=== PATIENT | female | born 1970 | race Caucasian/White ===

== ENCOUNTER 2020-01-02 07:14 | Outpatient (CLI) | payer OTHER, SELFPAY ==
[2020-01-02 07:52] LABS: Basophils Absolute Auto 0.1 K/mm3 (0.0-0.1); Basophils Percent Auto 1.3 % (0.2-1.2); Eosinophils Absolute Auto 0.2 K/mm3 (0-0.3); Eosinophils Percent Auto 2.5 % (0-4.4); Hematocrit 40.4 % (37.0-47.0); Hemoglobin 13.4 g/dL (12.0-15.0); Immature Granulocyte Absolute 0.03 K/mm3 (0.00-0.031); Immature Granulocyte Percent A 0.3 % (0-0.5); Lymphocytes Absolute Auto 2.54 K/mm3 (0.9-3.2); Lymphocytes Percent Auto 28.4 % (18.3-44.2); Mean Corpuscular HGB Conc 33.2 g/dl (32-36); Mean Corpuscular Hemoglobin 30.5 pg (26-34); Monocytes Absolute Auto 0.6 K/mm3 (0.1-0.6); Monocytes Percent Auto 6.8 % (2.6-8.5); Neutrophils Absolute Auto 5.4 K/mm3 (1.3-6.7); Neutrophils Percent Auto 60.7 % (45.5-73.1); Platelet Count Result 285 k/mm3 (150-375); Red Blood Count 4.39 M/mm3 (4.2-5.4); Red Cell Distribution Width 12.6 % (11.5-14.5); White Blood Count 8.9 K/mm3 (4.5-10.0)
[2020-01-02 08:06] LABS: Alanine Aminotransferase 20 U/L (4-35); Alkaline Phosphatase 86 U/L (38-126); Anion Gap 4 mmol/L (8-16); Aspartate Amino Transferase 21 U/L (14-36); Bilirubin,Total 0.4 mg/dL (0.2-1.3); Blood Urea Nitrogen 21 mg/dL (7-17); Carbon Dioxide 26 mmol/L (22-30); Chloride 108 mmol/L (98-107); Cholesterol 188 mg/dL (0-200); Estimated Glomerular Filt Rate 58; Glucose 109 mg/dL (65-105); HDL Direct 55 mg/dL; Potassium 4.2 mmol/L (3.4-5.0); Sodium 138 mmol/L (137-145); Triglycerides 67 mg/dL (<150)
[2020-01-02 08:15] LABS: Add Urine Microscopic? YES; Appearance Urine Cloudy (Clear); Bacteria Urine Trace /hpf; Bilirubin Urine Negative (Negative); Blood Urine Negative (Negative); Color Urine Yellow (Yellow); Glucose Urine UA Negative (Negative); Ketones Urine Negative (Negative); Leukocyte Esterase Ur Negative LEU/UL (NEGATIVE); Mucus Urine Few /lpf; Nitrate Urine Negative (Negative); Protein Urine Negative (Negative); RBC Urine 0-2 /hpf (0-2); Squamous Epithelial Cell Urine Many /hpf (Few); Urobilinogen Urine Negative mg/dL (<2.0); WBC Urine 0-3 /hpf (0-3)
[2020-01-02 08:16] LABS: LDL Cholesterol Direct 105 mg/dL
[2020-01-02 08:20] LABS: Hemoglobin A1C 5.3 % (<5.7)
[2020-01-02 08:43] LABS: Iron 75 ug/dL (37-170)
[2020-01-02 09:30] LABS: Folic Acid 11.9 ng/mL (2.76->20); Vitamin B12 > 1000.0 pg/mL (239-931)
[2020-01-06 15:38] LABS: Vitamin D 1,25 (OH)2 Total 34 pg/mL (18-72); Vitamin D2 1,25 (OH)2 <8 pg/mL; Vitamin D3 1,25 (OH)2 34 pg/mL
== END 2020-01-02 07:15 | disposition home or self-care (01) ==
PROVIDERS: PCP Family Medicine; Visit Provider Family Medicine
DX: E55.9 Vitamin D deficiency, unspecified (principal); E78.2 Mixed hyperlipidemia; F32.9 Major depressive disorder, single episode, unspecified; R73.01 Impaired fasting glucose
CPT/HCPCS: 36415; 80053; 80061; 81001; 82607; 82652; 82746; 83036; 83540; 84443; 85025

== ENCOUNTER 2020-01-07 17:17 | Outpatient (CLI) | payer OTHER, SELFPAY ==
--- NOTE | ~2020-01-07 | CT_ITS ---
EXAMINATION: CT lung screening DATE: 01/07/2020 17:37 INDICATION: Personal history of nicotine dependence, prior smoker with 30 pack year history TECHNIQUE: Computed tomography (CT) of the chest was performed without intravenous contrast. The dose -length product (DLP) was 248.20 mGy-cm. 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 COMPARISON: None FINDINGS: There is mild emphysema. A 3 mm nodule is present in the right upper lobe on image 31. Ther e is a 3 mm nodule of the left upper lobe on image 34. There is mild atelectasis or scarring of the l ingula and lower lobes. No pleural effusion or pneumothorax is identified. Calcified left hilar and m ediastinal lymph nodes are consistent with old granulomatous disease. No pathologically enlarged thor acic lymph nodes are identified. The heart size is normal. The gallbladder is surgically absent. Ther e is mild thoracic spondylosis. IMPRESSION: 1. Lung-RADS category 2: Benign appearance or behavior. Recommend annual screening with noncontrast l ow-dose chest CT beginning at age 55. Consider follow-up CT in 12 months. Reviewed, dictated and finalized at location A. IMPRESSION: 1. Lung-RADS category 2: Benign appearance or behavior. Recommend annual screen ing with noncontrast low-dose chest CT beginning at age 55. Consider follow-up CT in 12 months.
== END 2020-01-07 17:18 | disposition home or self-care (01) ==
PROVIDERS: PCP Family Medicine; Visit Provider Family Medicine
DX: Z12.2 Encounter for screening for malignant neoplasm of respiratory organs (principal); Z87.891 Personal history of nicotine dependence
CPT/HCPCS: G0297

== ENCOUNTER 2020-02-12 08:28 | Outpatient (CLI) | payer OTHER, SELFPAY ==
--- NOTE | 2020-03-16 11:31 | WPDHOMESLEEP ---
Sleep Study - Home Unattended Date of Study: 02/12/20 Ordering Provider: Quinton Nova MD Interpreting Physician: Gabrielle Zheng MD Home Sleep Study Type: Apnea Link Air Height: 1.63 m Weight: 103.419 kg Body Mass Index: 39.1 Rupert: 5 Reason for Sleep Study Loud snoring, suspected sleep apnea Sleep History Alie Mohan is a 49 year old female with hypertension. She reports gaining 50 lbs in the last year. She has loud snoring and her has witnessed her having apneic episodes while sleeping. She has gasped for air occasionally at night. She wakes up throughout the night and has excessive daytime sleepiness. Her snoring is frequently loud enough that others complain about it. She occasionally awakens at night with heartburn, belching or coughing. She does not awaken from sleep feeling short of breath. She occasionally has trouble sleep with a cold. She rarely gasp for breath at night and really has breathing problems at night observed by others. She constantly sweats excessively at night. She occasionally notices her heart pounding or beating irregularly at night. She occasionally falls asleep during the day but never involuntarily or while driving. 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 She frequently has daytime difficulties due to her excessive sleepiness. She does not have loss of muscle tone was strong emotion. She does not feel paralyzed on waking or falling asleep and does not have vivid dreamlike scenes upon awakening or falling asleep. She is not afraid to go to sleep. She does not have nightmares. She does not recall her dreams. She rarely has racing thoughts. She really feels sad or depressed. She occasionally has anxiety. She frequently has muscular tension. She rarely notices parts of her body jerking. She does not kick at night. She occasionally has crawling and aching feelings in her legs and leg pain at night. She does not have morning jaw pain and does not grind her teeth during sleep. She occasionally has bothered by pain during the day, occasionally is awakened by pain at night, occasionally wakes up feeling stiff in the morning. She rarely has sore achy muscles and occasionally wakes up with pain in the neck and spine. She has palpitations, headaches in bowel disturbances. Normal schedule is bedtime at 9:30 a.m. to 10:00 p.m. falling asleep instantly waking 2 or 3 times at night staying awake from 5-10 minutes. While awake she will roll over go back to sleep. She wakes in the morning at 6:00 a.m.. On weekends she goes to bed at the same time but may sleep until 7:00 a.m.. She may feel refreshed after a short nap. She is usually drowsy in the morning for 3 hours or longer. She rarely awakens feeling refreshed. Habits: Smoked 30 years, quit 4 years ago. She does consume caffeine. No alcohol or recreational drugs. [facility] Past Medical History Medical History Abnormal fasting glucose Acute bronchitis Anxiety Bilateral carpal tunnel syndrome Chronic depression Chronic low back pain without sciatica Chronic neck pain Chronic pain Colon cancer screening GERD (gastroesophageal reflux disease) Headache History of smoking 30 or more pack years Hypersomnia Irritable bowel syndrome with diarrhea Migraine without aura and without status migrainosus, not intractable Osteoarthritis involving multiple joints on both sides of body Seasonal allergic rhinitis Seasonal allergies Shortness of breath Surgical History Surgical History History of cholecystectomy History of hysterectomy History of tubal ligation Family History Family History Mother Family history of diabetes mellitus in first degree relative Diabetes mellitus Hypertension Family history of malignant neoplasm of breast in first degree relative Father Diabetes mellitus Hy
[2020-03-16 11:46] VITALS: BMI 39.1
== END 2020-02-12 08:29 | disposition home or self-care (01) ==
LOC: ANHCSM 08:29
PROVIDERS: PCP Family Medicine; Visit Provider Family Medicine
DX: G47.30 Sleep apnea, unspecified (principal); G47.10 Hypersomnia, unspecified
CPT/HCPCS: 95806

== ENCOUNTER 2020-02-27 10:39 | Outpatient (CLI) | payer OTHER, SELFPAY ==
--- NOTE | ~2020-02-27 | MM_ITS ---
EXAMINATION: MM screening becky BI w natalie HISTORY: Screening mammogram TECHNIQUE: Craniocaudal and mediolateral oblique 3-D tomosynthesis images were obtained and synthetic 2-D images were generated. CAD analysis was submitted and interpreted. COMPARISON: 01/02/2019, 12/03/2017, 01/28/2015 bilateral digital screening mammogram examinations BREAST PARENCHYMAL COMPOSITION: There are scattered areas of fibroglandular density. FINDINGS: There is no evidence of suspicious mass, calcification, or architectural distortion to sugg est malignancy in either breast. There has been no suspicious interval change. IMPRESSION: 1. No mammographic evidence of malignancy. 2. Recommend routine screening mammography in one year. BI-RADS Category 1: Negative Reviewed, dictated and finalized at location B. 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
== END 2020-02-27 10:40 | disposition home or self-care (01) ==
LOC: ANHIMG 10:42
PROVIDERS: PCP Family Medicine; Visit Provider Obstetrics & Gynecology
DX: Z12.31 Encounter for screening mammogram for malignant neoplasm of breast (principal)
CPT/HCPCS: 77063; 77067

== ENCOUNTER 2020-03-03 09:35 | Outpatient (CLI) | payer OTHER, SELFPAY ==
--- NOTE | 2020-03-03 10:30 | NEURO_ITS ---
Impression: # Complains of numbness of fingers. # No Carpal Tunnel Syndrome at this stage. # No ulnar neuropathy. # Normal needle/EMG exam. Nerve Conduction Studies Anti Sensory Summary Table Stim Site NR Peak (ms) P-T Amp (?V) Site1 Site2 Delta-P (ms) Dist (cm) Neymar (m/s) Left Median Anti Sensory (2-3nd Digit) Wrist 3.1 74.3 Wrist 2-3nd Digit 3.1 14.0 45 Wrist 3.1 80.5 Wrist 2-3nd Digit 3.1 14.0 45 Right Median Anti Sensory (2-3nd Digit) Wrist 3.1 62.4 Wrist 2-3nd Digit 3.1 14.0 45 Wrist 3.0 75.5 Wrist 2-3nd Digit 3.1 14.0 45 Left Radial Anti Sensory (Base 1st Digit) Wrist 1.9 26.0 Wrist Base 1st Digit 1.9 0.0 Right Radial Anti Sensory (Base 1st Digit) Wrist 2.2 25.8 Wrist Base 1st Digit 2.2 0.0 Left Ulnar Anti Sensory (5th Digit) Wrist 2.3 54.7 Wrist 5th Digit 2.3 14.0 61 Right Ulnar Anti Sensory (5th Digit) Wrist 2.3 28.3 Wrist 5th Digit 2.3 14.0 61 Motor Summary Table Stim Site NR Onset (ms) O-P Amp (mV) Site1 Site2 Delta-0 (ms) Dist (cm) Neymar (m/s) Left Median Motor (Abd Poll Brev) Wrist 3.2 5.9 Elbow Wrist 4.4 26.0 59 Elbow 7.6 5.0 Right Median Motor (Abd Poll Brev) Wrist 3.2 10.1 Elbow Wrist 4.8 26.0 54 Elbow 8.0 7.6 Left Ulnar Motor (Abd Dig Minimi) Wrist 2.3 7.3 A Elbow Wrist 4.7 27.0 57 A Elbow 7.0 5.9 Right Ulnar Motor (Abd Dig Minimi) Wrist 2.4 8.1 A Elbow Wrist 5.1 28.0 55 A Elbow 7.5 4.2 F Wave Studies NR F-Lat (ms) L-R F-Lat (ms) Left Median (Mrkrs) (Abd Poll Brev) 28.01 0.20 Right Median (Mrkrs) (Abd Poll Brev) 28.20 0.20 Left Ulnar (Mrkrs) (Abd Dig Min) 27.60 1.08 Right Ulnar (Mrkrs) (Abd Dig Min) 28.67 1.08 EMG Side Muscle Nerve Root Ins Act Fibs Amp Dur Recrt Comment Right 1stDorInt Ulnar C8-T1 Nml Nml Nml Nml Nml Right Ext Indicis Radial (Post Int) C7-8 Nml Nml Nml Nml Nml Right Ext Digitorum Radial (Post Int) C7-8 Nml Nml Nml Nml Nml Right BrachioRad Radial C5-6 Nml Nml Nml Nml Nml Right PronatorTeres Median C6-7 Nml Nml Nml Nml Nml Right Abd Poll Brev Median C8-T1 Nml Nml Nml Nml Nml Left 1stDorInt Ulnar C8-T1 Nml Nml Nml Nml Nml Left Ext Indicis Radial (Post Int) C7-8 Nml Nml Nml Nml Nml Left Ext Digitorum Radial (Post Int) C7-8 Nml Nml Nml Nml Nml Left BrachioRad Radial C5-6 Nml Nml Nml Nml Nml Left PronatorTeres Median C6-7 Nml Nml Nml Nml Nml Left Abd Poll Brev Median C8-T1 Nml Nml Nml Nml Nml Right ABD Dig Min Ulnar C8-T1 Nml Nml Nml Nml Nml Left ABD Dig Min Ulnar C8-T1 Nml Nml Nml Nml Nml MTDD
== END 2020-03-03 09:36 | disposition home or self-care (01) ==
PROVIDERS: PCP Family Medicine; Visit Provider Family Medicine
DX: G56.03 Carpal tunnel syndrome, bilateral upper limbs (principal)
CPT/HCPCS: 95886; 95911

== ENCOUNTER 2020-08-15 13:34 | Outpatient (CLI) | payer OTHER, SELFPAY ==
--- NOTE | 2020-08-15 16:45 | P.PCNPFT_ITS ---
PFT Procedure Performed PFT Procedure Performed Spirometry with Pre/Post Bronchodilator Plethysmography (Lung Vol) Diffusing Cap (DLCO) Flow Vol Loop PFT Interpretation This is a pulmonary function test with pre and post-bronchodilator spirometry, plethysmography and diffusing capacity. The test was performed and results interpreted in accordance with the 2019 and 2005 ATS/ERS Task Force guidelines respectively using the Global Lung Function Initiative-2012 reference equations. Patient demonstrated good effort and cooperation. Reproducibility criteria were met. The quality of the pre bronchodilator spirometry maneuver was Grade A and post bronchodilator spirometry maneuver was Grade A. Findings: Spirometry: There is decreased maximal expiratory airflow at all lung volumes with concave expiratory flow tracing. The contour of the inspiratory flow tracing is normal. The pre bronchodilator FVC is 2.54 L, 74% predicted. The pre bronchodilator FEV1 is 1.53, 56% predicted. The FEV1: FVC ratio 60%. The post bronchodilator FVC is 2.70 L, representing a 6% increase. The post bronchodilator FEV1 is 1.75 L, representing a 15% increase. Plethysmography: The total lung capacity is 5.32 L, 105% predicted. The functional residual capacity is 3.41 L, 120% predicted. The residual volume is 2.79 L, 152% predicted. Diffusion capacity: The absolute diffusion capacity is 15.2, 67% predicted. The diffusing capacity corrected for alveolar volume is 4.34, 95% predicted. Impression: There is a moderately severe obstructive abnormality with significant improvement after inhaling a single dose of albuterol. The increase in residual volume is consistent with air trapping from an obstructive abnorma lity. The absolute diffusing capacity is mildly decreased and normalizes when corrected for alveolar volume. There are no prior studies for comparison
== END 2020-08-15 13:35 | disposition home or self-care (01) ==
PROVIDERS: PCP Family Medicine; Visit Provider Family Medicine
DX: R06.02 Shortness of breath (principal); R94.2 Abnormal results of pulmonary function studies
CPT/HCPCS: 94060; 94726; 94729

== ENCOUNTER 2020-08-19 12:11 | Emergency (ER) | payer OTHER, SELFPAY ==
[2020-08-19] VITALS (7 sets, daily range): BP systolic 140–167; BP diastolic 80–105; PULSE 54–68; RESP 12–21; TEMP 36.2; O2SAT 97–100
--- NOTE | ~2020-08-19 | CT_ITS ---
EXAMINATION: CT brain wo con DATE: 08/19/2020 12:58 INDICATION: Headache TECHNIQUE: Computed tomography (CT) of the head was performed without intravenous contrast. Sagittal and coronal reconstructions were performed. The mA was adjusted according to patient size. Iterative reconstruction technique was employed. The dose-length product was 605.33 mGy-cm. COMPARISON: None FINDINGS: No acute intracranial hemorrhage, acute infarction or abnormal extra axial fluid collection. There is mild scattered white matter hypoattenuation consistent with chronic small vessel ischemic disease. V entricles are normal and symmetric. No mass/mass effect. The orbits, paranasal sinuses and mastoid ai r cells are normal. IMPRESSION: 1. No acute intracranial process. 2. Mild scattered white matter hypoattenuation consistent with chronic small vessel ischemic disease. Reviewed, dictated and finalized at location A. IMPRESSION: 1. No acute intracranial process. 2. Mild scattered white matter hypoattenuation consistent with chronic small ve ssel ischemic disease.
--- NOTE | ~2020-08-19 | XR_ITS ---
EXAMINATION: XR chest 1V DATE: 08/19/2020 13:05 INDICATION: Hypertension, headache and blurred vision. TECHNIQUE: frontal view of the chest was obtained. COMPARISON: Chest radiograph dated 03/10/2018 FINDINGS: Unchanged mild linear discoid atelectasis/scarring at the left costophrenic angle. No other airspace opacities, pulmonary edema, pleural effusion or pneumothorax. The cardiomediastinal silhouette is nor mal. Cholecystectomy clips in right upper quadrant. IMPRESSION: 1. Unchanged mild atelectasis/scarring at the lateral left lung base. No acute cardiopulmonary diseas e. Reviewed, dictated and finalized at location A. IMPRESSION: 1. Unchanged mild atelectasis/scarring at the lateral left lung base. No acute cardiopulmonary disease.
--- NOTE | 2020-08-19 12:26 | ECG_ITS ---
Measurements Intervals [place] Rate: 55 P: 53 ND: 165 QRS: 22 QRSD: 84 T: 37 QT: 426 QTc: 408 Interpretive Statements SINUS BRADYCARDIA DELAYED PRECORDIAL R/S TRANSITION BASELINE ARTIFACT- I, II, AVR BORDERLINE ECG Electronically Signed On 08-19-2020 13:23:18 CDT by Cassius Cosby D.O.
[2020-08-19] MEDS: LORazepam (*CRX) 1 MG TABLET PO (13:05)
--- NOTE | 2020-08-19 13:11 | ED.GENADULT ---
HPI - General Adult General Chief complaint: Unspecified Stated complaint: Blood Pressure Issues Time Seen by Provider: 08/19/20 12:24 Source: patient and RN notes reviewed Mode of arrival: ambulatory Limitations: no limitations History of Present Illness HPI narrative: Patient is 50 years old white female presented to the ED with episodes off feeling strange, blurry vision, headache, thick throat started months ago usually last between minutes up to 1 hour, anytime, patient denies aggravating or relieving factors. Patient scheduled to see her family physician at the end of this month. Today patient was sitting on the computer suddenly everything become blurry, felt strange, pain at the back of her neck and thick throat. Patient also reports been feeling hot flashes over the last few months. History of hysterectomy, still have ovaries. History of hypertension, depression and anxiety. Patient report some stress in her life lately. Patient denies any fever, chills, nausea, vomiting, chest pain, shortness of breath. Patient denies smoking, drinking, reports intermittent use of marijuana for chronic lower back pain patient had Covid vaccine months ago. Related Data Home Medications Medication Instructions Recorded Confirmed omeprazole 20 mg capsule,delayed 20 mg PO DAILY 08/19/19 04/27/20 release Allergies Allergy/AdvReac Type Severity Reaction Status Date / Time No Known Allergies Allergy Verified 08/19/20 12:27 Review of Systems Review of Systems: Narrative: CONSTITUTIONAL: Denies fever, chills, or sweats. EYES: Denies visual changes, redness, or discharge. ENT: Denies rhinorrhea, congestion, sore throat, or otalgia. CARDIOVASCULAR: Denies chest pain, palpitations, or edema. RESPIRATORY: Denies cough or dyspnea. GASTROINTESTINAL: Denies abdominal pain, nausea, vomiting, or diarrhea. GENITOURINARY: Denies dysuria or hematuria. SKIN: Denies rash or itching. MUSCULOSKELETAL: Denies back pain, joint pain, or myalgia. NEUROLOGIC: Denies headache, numbness, or weakness. PSYCHIATRIC: Denies anxiety or depression. [facility] Past Medical History Medical History Abnormal fasting glucose Acute bronchitis Anxiety Bilateral carpal tunnel syndrome BMI 39.0-39.9,adult Body mass index (bmi) 38.0-38.9, adult (12/13/17) Chronic depression Chronic low back pain without sciatica Chronic neck pain Chronic pain Colon cancer screening GERD (gastroesophageal reflux disease) Headache History of smoking 30 or more pack years Hypersomnia Irritable bowel syndrome with diarrhea Migraine without aura and without status migrainosus, not intractable Osteoarthritis involving multiple joints on both sides of body Seasonal allergic rhinitis Seasonal allergies Shortness of breath Surgical History Surgical History History of cholecystectomy History of hysterectomy History of tubal ligation Family History Family History Mother Family history of diabetes mellitus in first degree relative Diabetes mellitus Hypertension Family history of malignant neoplasm of breast in first degree relative Father Diabetes mellitus Hypertension Social History Social History Social History: 30 pack years per office visit 12/24/2019 Smoking status: Former smoker Second hand tobacco smoke exposure: Yes Alcohol intake: never Substance use: never Substance use type: does not use Exam Narrative: Exam Narrative: General appearance: Well-developed, well-nourished, tears in the eyes, denied any pain no family member at the bedside Skin: Normal color Head: Normocephalic, nontraumatic Eyes: Clear conjunctiva ENT: Oropharynx normal, ears normal, nose normal Neck: Supple, nontender Chest and respiratory: Airway patent, no respiratory distre
[2020-08-19 13:56] LABS: Basophils Absolute Auto 0.1 K/mm3 (0.0-0.1); Basophils Percent Auto 1.2 % (0.2-1.2); Eosinophils Absolute Auto 0.2 K/mm3 (0-0.3); Eosinophils Percent Auto 2.1 % (0-4.4); Hematocrit 41.2 % (37.0-47.0); Hemoglobin 13.4 g/dL (12.0-15.0); Immature Granulocyte Absolute 0.03 K/mm3 (0.00-0.031); Immature Granulocyte Percent A 0.3 % (0-0.5); Lymphocytes Absolute Auto 2.63 K/mm3 (0.9-3.2); Lymphocytes Percent Auto 27.5 % (18.3-44.2); Mean Corpuscular HGB Conc 32.5 g/dl (32-36); Mean Corpuscular Hemoglobin 30.1 pg (26-34); Mean Corpuscular Volume 92.6 fl (80-100); Mean Platelet Volume 10.2 fl (7.4-10.4); Monocytes Absolute Auto 0.7 K/mm3 (0.1-0.6); Monocytes Percent Auto 7.6 % (2.6-8.5); Neutrophils Absolute Auto 5.9 K/mm3 (1.3-6.7); Neutrophils Percent Auto 61.3 % (45.5-73.1); Platelet Count Result 314 k/mm3 (150-375); Red Blood Count 4.45 M/mm3 (4.2-5.4); Red Cell Distribution Width 12.6 % (11.5-14.5); White Blood Count 9.6 K/mm3 (4.5-10.0)
[2020-08-19 14:06] LABS: INR 0.9
[2020-08-19 14:07] LABS: Partial Thromboplastin Time 26.2 SECONDS (22.3-36.8)
[2020-08-19 14:17] LABS: Troponin I < 0.012 ng/mL (0.000-0.034)
--- NOTE | 2020-08-19 14:20 | PC.NURSE ---
Called Susu forde, added on CMP [id number]
[2020-08-19 14:38] LABS: Alanine Aminotransferase 35 U/L (4-35); Albumin Level 4.2 g/dL (3.5-5.1); Alkaline Phosphatase 104 U/L (38-126); Anion Gap 3 mmol/L (8-16); Aspartate Amino Transferase 31 U/L (14-36); Bilirubin,Total 0.4 mg/dL (0.2-1.3); Blood Urea Nitrogen 18 mg/dL (7-17); Calcium 9.5 mg/dL (8.4-10.2); Carbon Dioxide 30 mmol/L (22-30); Chloride 105 mmol/L (98-107); Estimated CRCL calculation 75 ml/min; Estimated Glomerular Filt Rate > 60; Glucose 99 mg/dL (65-105); Potassium 4.3 mmol/L (3.4-5.0); Sodium 138 mmol/L (137-145)
[2020-08-19 15:48] LABS: Add Urine Microscopic? NO; Appearance Urine Clear (Clear); Bilirubin Urine Negative (Negative); Blood Urine Negative (Negative); Color Urine Yellow (Yellow); Glucose Urine UA Negative (Negative); Ketones Urine Negative (Negative); Leukocyte Esterase Ur Negative LEU/UL (Negative); Nitrate Urine Negative (Negative); Protein Urine Negative (Negative); Specific Grav Ur 1.017 (1.001-1.035); Urobilinogen Urine Negative mg/dL (<2.0)
== END 2020-08-19 15:57 | disposition home or self-care (01) ==
PROVIDERS: Emergency Provider Emergency Medicine; PCP Family Medicine
DX: R51.9 Headache, unspecified (principal); F41.9 Anxiety disorder, unspecified; G89.29 Other chronic pain; M54.5 Low back pain; M54.2 Cervicalgia; K21.9 Gastro-esophageal reflux disease without esophagitis; K58.0 Irritable bowel syndrome with diarrhea; M19.90 Unspecified osteoarthritis, unspecified site; Z87.891 Personal history of nicotine dependence
CPT/HCPCS: 36415; 70450; 71045; 80053; 81003; 84443; 84484; 85025; 85610; 85730; 93005; 99284; A9270

== ENCOUNTER 2020-08-31 11:34 | Emergency (ER) | payer OTHER, SELFPAY ==
[2020-08-31] VITALS (27 sets, daily range): BP systolic 148–175; BP diastolic 86–103; PULSE 53–69; RESP 11–23; TEMP 36.5; O2SAT 90–100
--- NOTE | 2020-08-31 12:43 | ED.RECABL ---
HPI - Recheck/Abnormal Lab/Rx General Chief Complaint: Recheck/Abnormal Lab/Rx Stated Complaint: HTN Time Seen by Provider: 08/31/20 12:21 Source: RN notes reviewed History of Present Illness HPI narrative: Patient presents to emergency department from home for hypertension. Patient states she has a history of hypertension and her PCP Dr. Nova is currently attempting to regulate it with medication she states she is on metoprolol and irbesartan which she took both of at 730 this morning she states that she is post be checking her blood pressure checked her blood pressure at home and they are elevated and came to emergency department for further evaluation she noted mild nausea earlier but states that is resolved at this time as well as mild tingling in her fingers bilaterally that is also resolved she denies any fevers or chills, chest pain, shortness of breath vomiting diarrhea or any other symptoms Related Data Home Medications Medication Instructions Recorded Confirmed omeprazole 20 mg capsule,delayed 20 mg PO DAILY 08/19/19 04/27/20 release Allergies Allergy/AdvReac Type Severity Reaction Status Date / Time No Known Allergies Allergy Verified 08/31/20 11:39 Review of Systems Review of Systems: Narrative: Gen.: Denies fevers or chills Eyes: Denies eye pain or visual change ENT: Denies congestion Respiratory: Denies shortness of breath or cough CV: Denies chest pain or palpitations GI: Denies abdominal pain emesis or diarrhea. Reports nausea earlier that is resolved denies burning, urgency, frequency or hematuria Musculoskeletal: Denies back pain or muscle pain Neuro: Denies numbness, lower. Reports tingling in the bilateral hands earlier that is resolved weakness or focal weakness Skin: Denies rash Except as documented, all other systems reviewed and negative [facility] Past Medical History Medical History Abnormal fasting glucose Acute bronchitis Anxiety Bilateral carpal tunnel syndrome BMI 39.0-39.9,adult Body mass index (bmi) 38.0-38.9, adult (12/13/17) Chronic depression Chronic low back pain without sciatica Chronic neck pain Chronic pain Colon cancer screening GERD (gastroesophageal reflux disease) Headache History of smoking 30 or more pack years Hypersomnia Irritable bowel syndrome with diarrhea Migraine without aura and without status migrainosus, not intractable Osteoarthritis involving multiple joints on both sides of body Seasonal allergic rhinitis Seasonal allergies Shortness of breath Surgical History Surgical History History of cholecystectomy History of hysterectomy History of tubal ligation Family History Family History Mother Family history of diabetes mellitus in first degree relative Diabetes mellitus Hypertension Family history of malignant neoplasm of breast in first degree relative Father Diabetes mellitus Hypertension Social History Social History Social History: 30 pack years per office visit 12/24/2019 Smoking status: Former smoker Second hand tobacco smoke exposure: Yes Alcohol intake: never Substance use: never Substance use type: does not use Gender identity (if verbalized by the patient): Female Exam Narrative: Exam Narrative: APPEARANCE: No acute distress, nontoxic, resting in bed EYES: EOMI HEENT: Normocephalic, atraumatic, OMM RESPIRATORY: No respiratory distress Clear to auscultation bilaterally with no rhonchi wheezing or rales. CARDIOVASCULAR: Regular rate and rhythm without murmurs rubs or gallops. ABDOMINAL: Soft, nontender, nondistended, no rebound or guarding MUSCULOSKELETAl: Moves all extremities. No clubbing, cyanosis or edema. NEURO: Awake and alert. Following commands, speech normal, no focal deficits SKIN:: Warm
[2020-08-31 13:10] LABS: Basophils Absolute Auto 0.1 K/mm3 (0.0-0.1); Basophils Percent Auto 1.1 % (0.2-1.2); Eosinophils Absolute Auto 0.2 K/mm3 (0-0.3); Eosinophils Percent Auto 1.9 % (0-4.4); Hematocrit 40.7 % (37.0-47.0); Hemoglobin 13.6 g/dL (12.0-15.0); Immature Granulocyte Absolute 0.04 K/mm3 (0.00-0.031); Immature Granulocyte Percent A 0.4 % (0-0.5); Lymphocytes Absolute Auto 2.61 K/mm3 (0.9-3.2); Lymphocytes Percent Auto 29.4 % (18.3-44.2); Mean Corpuscular HGB Conc 33.4 g/dl (32-36); Mean Corpuscular Hemoglobin 30.6 pg (26-34); Mean Corpuscular Volume 91.5 fl (80-100); Mean Platelet Volume 10.4 fl (7.4-10.4); Monocytes Absolute Auto 0.6 K/mm3 (0.1-0.6); Monocytes Percent Auto 6.7 % (2.6-8.5); Neutrophils Absolute Auto 5.4 K/mm3 (1.3-6.7); Neutrophils Percent Auto 60.5 % (45.5-73.1); Platelet Count Result 284 k/mm3 (150-375); Red Blood Count 4.45 M/mm3 (4.2-5.4); Red Cell Distribution Width 12.6 % (11.5-14.5); White Blood Count 8.9 K/mm3 (4.5-10.0)
[2020-08-31 13:23] LABS: Alanine Aminotransferase 49 U/L (4-35); Albumin Level 4.4 g/dL (3.5-5.1); Alkaline Phosphatase 114 U/L (38-126); Anion Gap 3 mmol/L (8-16); Aspartate Amino Transferase 43 U/L (14-36); Bilirubin,Total 0.4 mg/dL (0.2-1.3); Blood Urea Nitrogen 14 mg/dL (7-17); Calcium 9.6 mg/dL (8.4-10.2); Carbon Dioxide 32 mmol/L (22-30); Chloride 105 mmol/L (98-107); Estimated CRCL calculation 75 ml/min; Estimated Glomerular Filt Rate > 60; Glucose 101 mg/dL (65-105); Potassium 4.1 mmol/L (3.4-5.0); Sodium 140 mmol/L (137-145)
[2020-08-31 14:31] LABS: Add Urine Microscopic? NO; Appearance Urine Clear (Clear); Bilirubin Urine Negative (Negative); Blood Urine Negative (Negative); Color Urine Straw (Yellow); Glucose Urine UA Negative (Negative); Ketones Urine Negative (Negative); Leukocyte Esterase Ur Negative LEU/UL (Negative); Nitrate Urine Negative (Negative); Protein Urine Negative (Negative); Urobilinogen Urine Negative mg/dL (<2.0)
== END 2020-08-31 14:55 | disposition home or self-care (01) ==
PROVIDERS: Emergency Provider Emergency Medicine; PCP Family Medicine
DX: I10 Essential (primary) hypertension (principal); Z87.891 Personal history of nicotine dependence; K21.9 Gastro-esophageal reflux disease without esophagitis; M19.90 Unspecified osteoarthritis, unspecified site
CPT/HCPCS: 36415; 80053; 81003; 85025; 99283

== ENCOUNTER 2020-12-11 07:23 | Outpatient (CLI) | payer OTHER, SELFPAY ==
--- NOTE | ~2020-12-11 | MR_ITS ---
EXAMINATION: MR lumbar spine wo con DATE: 12/11/2020 08:11 INDICATION: Lumbago with left-sided sciatica. TECHNIQUE: Magnetic resonance imaging (MRI) of the lumbar spine was performed without intravenous con trast. Sequences included sagittal T2-weighted FSE, sagittal T2-weighted FS FSE, sagittal T1-weighted FSE, and axial T2-weighted FSE. COMPARISON: Lumbar spine CT 03/04/2019 FINDINGS: Bone alignment is normal. There is a Schmorl's node of L5 inferior endplate. Intervertebral disc heights are normal. The distal spinal cord signal intensity is normal. The conus medullaris is at L1. The following disc levels are specifically discussed: L1-L2: The disc does not extend beyond the endplate margin. There is mild bilateral facet joint osteo arthritis. There is no neural foraminal stenosis. There is no central canal stenosis. L2-L3: There is a left foraminal protrusion. There is mild bilateral facet joint osteoarthritis. Ther e is mild left neural foraminal stenosis. There is no central canal stenosis. L3-L4: The disc is bulging and has an annular fissure. There is mild bilateral facet joint osteoarthr itis. There is mild left neural foraminal stenosis. There is mild central canal stenosis. L4-L5: The disc is bulging as an annular fissure. There is mild bilateral facet joint osteoarthritis. There is mild bilateral neural foraminal stenosis. There is mild central canal stenosis. L5-S1: The disc is bulging and has an annular fissure. There is severe right and moderate left facet joint osteoarthritis. There is mild bilateral neural foraminal stenosis. There is mild central canal stenosis. IMPRESSION: 1. Mild lumbar spondylosis, stable from 03/04/2019. Reviewed, dictated and finalized at location A.
== END 2020-12-11 07:24 | disposition home or self-care (01) ==
LOC: ANHIMG 07:26
PROVIDERS: PCP Family Medicine; Visit Provider Nurse Practitioner Family
DX: M54.42 Lumbago with sciatica, left side (principal); R29.898 Other symptoms and signs involving the musculoskeletal system; M47.816 Spondylosis without myelopathy or radiculopathy, lumbar region
CPT/HCPCS: 72148

== ENCOUNTER 2021-03-28 16:48 | Outpatient (CLI) | payer OTHER, SELFPAY ==
--- NOTE | ~2021-03-28 | MM_ITS ---
EXAMINATION: MM screening becky BI w natalie HISTORY: Screening mammogram TECHNIQUE: Craniocaudal and mediolateral oblique 3-D tomosynthesis images were obtained and synthetic 2-D images were generated. CAD analysis was submitted and interpreted. COMPARISON: 02/27/2020, 01/02/2019, 12/03/2017 bilateral screening mammogram examinations BREAST PARENCHYMAL COMPOSITION: The breasts are almost entirely fatty. FINDINGS: There is no evidence of suspicious mass, calcification, or architectural distortion to sugg est malignancy in either breast. There has been no suspicious interval change. IMPRESSION: 1. No mammographic evidence of malignancy. 2. Recommend routine screening mammography in one year. BI-RADS Category 1: Negative Reviewed, dictated and finalized at location A. RIZED SQUAD CAPTAIN
== END 2021-03-28 16:49 | disposition home or self-care (01) ==
PROVIDERS: PCP Family Medicine; Visit Provider Family Medicine
DX: Z12.31 Encounter for screening mammogram for malignant neoplasm of breast (principal)
CPT/HCPCS: 77063; 77067

== ENCOUNTER 2021-07-01 07:17 | Outpatient (CLI) | payer OTHER, SELFPAY ==
[2021-07-01 07:38] LABS: Basophils Absolute Auto 0.1 K/mm3 (0.0-0.1); Basophils Percent Auto 1.3 % (0.2-1.2); Eosinophils Absolute Auto 0.2 K/mm3 (0-0.3); Eosinophils Percent Auto 2.3 % (0-4.4); Hematocrit 38.7 % (37.0-47.0); Immature Granulocyte Absolute 0.03 K/mm3 (0.00-0.031); Immature Granulocyte Percent A 0.3 % (0-0.5); Lymphocytes Absolute Auto 2.25 K/mm3 (0.9-3.2); Lymphocytes Percent Auto 23.6 % (18.3-44.2); Mean Corpuscular HGB Conc 33.6 g/dl (32-36); Mean Corpuscular Hemoglobin 31.9 pg (26-34); Mean Corpuscular Volume 94.9 fl (80-100); Mean Platelet Volume 10.2 fl (7.4-10.4); Monocytes Absolute Auto 0.6 K/mm3 (0.1-0.6); Monocytes Percent Auto 6.5 % (2.6-8.5); Neutrophils Absolute Auto 6.3 K/mm3 (1.3-6.7); Platelet Count Result 317 k/mm3 (150-375); Red Blood Count 4.08 M/mm3 (4.2-5.4); Red Cell Distribution Width 12.7 % (11.5-14.5); White Blood Count 9.5 K/mm3 (4.5-10.0)
[2021-07-01 07:48] LABS: Alanine Aminotransferase 26 U/L (4-35); Albumin Level 4.3 g/dL (3.5-5.1); Alkaline Phosphatase 102 U/L (38-126); Anion Gap 4 mmol/L (8-16); Aspartate Amino Transferase 30 U/L (14-36); Bilirubin,Total 0.3 mg/dL (0.2-1.3); Blood Urea Nitrogen 26 mg/dL (7-17); Calcium 8.8 mg/dL (8.4-10.2); Carbon Dioxide 29 mmol/L (22-30); Chloride 105 mmol/L (98-107); Cholesterol 207 mg/dL (0-200); Estimated Glomerular Filt Rate 47; Glucose 116 mg/dL (65-110); HDL Direct 49 mg/dL; Potassium 4.2 mmol/L (3.4-5.0); Sodium 138 mmol/L (137-145); Triglycerides 79 mg/dL (<150)
[2021-07-01 07:49] LABS: Hemoglobin A1C 5.4 % (<5.7)
[2021-07-01 08:00] LABS: LDL Cholesterol Direct 119 mg/dL
[2021-07-01 08:29] LABS: Add Urine Microscopic? NO; Appearance Urine Clear (Clear); Bilirubin Urine Negative (Negative); Blood Urine Negative (Negative); Color Urine Yellow (Yellow); Glucose Urine UA Negative (Negative); Ketones Urine Negative (Negative); Leukocyte Esterase Ur Negative LEU/UL (NEGATIVE); Nitrate Urine Negative (Negative); Protein Urine Negative (Negative); Specific Grav Ur 1.016 (1.001-1.035); Urobilinogen Urine Negative mg/dL (<2.0)
[2021-07-01 09:05] LABS: Iron 57 ug/dL (37-170)
[2021-07-01 09:19] LABS: Vitamin B12 > 1000.0 pg/mL (239-931)
[2021-07-06 07:28] LABS: Vitamin D 1,25 (OH)2 Total 38 pg/mL (18-72); Vitamin D2 1,25 (OH)2 <8 pg/mL; Vitamin D3 1,25 (OH)2 38 pg/mL
== END 2021-07-01 07:18 | disposition home or self-care (01) ==
LOC: ANHLAB 07:21
PROVIDERS: PCP Family Medicine; Visit Provider Family Medicine
DX: E55.9 Vitamin D deficiency, unspecified (principal); F32.9 Major depressive disorder, single episode, unspecified; R73.01 Impaired fasting glucose; J45.40 Moderate persistent asthma, uncomplicated; E78.2 Mixed hyperlipidemia; F41.9 Anxiety disorder, unspecified
CPT/HCPCS: 36415; 80053; 80061; 81003; 82607; 82652; 82746; 83036; 83540; 84443; 85025

== ENCOUNTER → 2021-07-10 17:53 | Outpatient (CLI) | payer OTHER, SELFPAY ==
--- NOTE | ~2021-07-10 | XR_ITS ---
XR knee LT min 4V DATE: 07/10/2021 18:13 INDICATION: Left knee pain TECHNIQUE: 4 views including crosstable lateral COMPARISON: None FINDINGS: No recent fracture or dislocation or joint effusion. No periosteal reaction or bone destruc tion. No radiopaque intra-articular loose body or chondrocalcinosis. IMPRESSION: Osteopenia. No recent fracture or dislocation or joint effusion. Reviewed, dictated and finalized at location A.
== END ==
PROVIDERS: PCP Family Medicine; Visit Provider Family Medicine
DX: M85.862 Other specified disorders of bone density and structure, left lower leg (principal)
CPT/HCPCS: 73564

== ENCOUNTER 2021-08-29 16:17 | Outpatient (CLI) | payer OTHER, SELFPAY ==
--- NOTE | ~2021-08-29 | CT_ITS ---
EXAMINATION: CT lung screening DATE: 08/29/2021 16:35 INDICATION: Personal history of tobacco dependence. TECHNIQUE: Computed tomography (CT) of the chest was performed without intravenous contrast. The dose -length product was 277.15 mGy-cm. Automated exposure control and iterative reconstruction technique were employed. COMPARISON: CT dated 01/07/2020 FINDINGS: No significant pleural or pericardial effusion. No thoracic lymphadenopathy. Heart size nor mal. No significant pleural or pericardial effusion. There are cholecystectomy clips. There are calci fied granulomas of the spleen. There is a persistent 3 mm right upper lobe nodule, without significan t change from prior examination allowing for differences of technique. There are small left upper lob e nodules, largest measuring 4 mm, image 40. There is bibasilar atelectasis/scarring. There are calci fied granulomas in the left infrahilar region. No endobronchial lesions. Mild emphysema. No pneumotho rax. There is a stable 3 mm left lower lobe nodule, image 88. IMPRESSION: 1. Lung-RADS category 2: Benign appearance or behavior. Continue annual screening with noncontrast lo w-dose chest CT in 12 months. Reviewed, dictated and finalized at location A. IMPRESSION: 1. Lung-RADS category 2: Benign appearance or behavior. Continue annual screeni ng with noncontrast low-dose chest CT in 12 months.
== END 2021-08-29 16:18 | disposition home or self-care (01) ==
PROVIDERS: PCP Family Medicine; Visit Provider Family Medicine
DX: Z12.2 Encounter for screening for malignant neoplasm of respiratory organs (principal); Z87.891 Personal history of nicotine dependence
CPT/HCPCS: 71271

== ENCOUNTER 2021-12-30 07:32 | Outpatient (CLI) | payer OTHER, SELFPAY ==
[2021-12-30 08:08] LABS: Anion Gap 11 mmol/L (8-16); Blood Urea Nitrogen 23 mg/dL (7-17); Calcium 8.8 mg/dL (8.4-10.2); Carbon Dioxide 26 mmol/L (22-30); Chloride 103 mmol/L (98-107); Estimated Glomerular Filt Rate 43; Glucose 118 mg/dL (65-110); Potassium 4.2 mmol/L (3.4-5.0); Sodium 140 mmol/L (137-145)
[2021-12-30 08:12] LABS: Hemoglobin A1C 5.7 % (<5.7)
== END 2021-12-30 07:33 | disposition home or self-care (01) ==
LOC: ANHLAB 07:34
PROVIDERS: PCP Family Medicine; Visit Provider Family Medicine
DX: R73.01 Impaired fasting glucose (principal)
CPT/HCPCS: 36415; 80048; 83036

== ENCOUNTER 2022-02-17 07:23 | Outpatient (CLI) | payer OTHER, SELFPAY ==
[2022-02-17 08:02] LABS: Anion Gap 11 mmol/L (8-16); Blood Urea Nitrogen 24 mg/dL (7-17); Calcium 8.9 mg/dL (8.4-10.2); Carbon Dioxide 23 mmol/L (22-30); Chloride 105 mmol/L (98-107); Estimated Glomerular Filt Rate 43; Glucose 128 mg/dL (65-110); Sodium 139 mmol/L (137-145)
== END 2022-02-17 07:24 | disposition home or self-care (01) ==
PROVIDERS: PCP Family Medicine; Visit Provider Family Medicine
DX: N28.9 Disorder of kidney and ureter, unspecified (principal)
CPT/HCPCS: 36415; 80048

== ENCOUNTER 2022-04-30 16:36 | Outpatient (CLI) | payer OTHER, SELFPAY ==
--- NOTE | ~2022-04-30 | US_ITS ---
EXAMINATION: US renal BI DATE: 04/30/2022 17:24 INDICATION: CKD STAGE 3 TECHNIQUE: Multiple grayscale and Doppler ultrasound images of the kidneys were obtained. COMPARISON: None. FINDINGS: The right kidney measures 9.3 x 4.8 x 5.3 cm. The left kidney measures 9.7 x 5.5 x 4.9 cm. The kidney s demonstrate normal parenchymal echogenicity. There is mild left hydronephrosis, seen both pre and p ost void. The bladder is normal. No post void residual. IMPRESSION: Mild left hydronephrosis. Reviewed, dictated and finalized at location K. AUTOMATIC SAWYER IMPRESSION: Mild left hydronephrosis.
== END 2022-04-30 16:37 | disposition home or self-care (01) ==
PROVIDERS: PCP Internal Medicine; Visit Provider Specialist
DX: N18.30 Chronic kidney disease, stage 3 unspecified (principal); N13.30 Unspecified hydronephrosis
CPT/HCPCS: 76775

== ENCOUNTER 2022-05-05 07:24 | Outpatient (CLI) | payer OTHER, SELFPAY ==
[2022-05-05 08:09] LABS: Basophils Absolute Auto 0.1 K/mm3 (0.0-0.1); Basophils Percent Auto 1.1 % (0.2-1.2); Eosinophils Absolute Auto 0.3 K/mm3 (0-0.3); Eosinophils Percent Auto 2.7 % (0-4.4); Hematocrit 38.8 % (37.0-47.0); Hemoglobin 12.9 g/dL (12.0-15.0); Immature Granulocyte Absolute 0.03 K/mm3 (0.00-0.031); Immature Granulocyte Percent A 0.3 % (0-0.5); Lymphocytes Absolute Auto 2.65 K/mm3 (0.9-3.2); Lymphocytes Percent Auto 26.8 % (18.3-44.2); Mean Corpuscular HGB Conc 33.2 g/dl (32-36); Mean Corpuscular Hemoglobin 30.8 pg (26-34); Mean Corpuscular Volume 92.6 fl (80-100); Mean Platelet Volume 10.1 fl (7.4-10.4); Monocytes Absolute Auto 0.7 K/mm3 (0.1-0.6); Monocytes Percent Auto 6.9 % (2.6-8.5); Neutrophils Absolute Auto 6.1 K/mm3 (1.3-6.7); Neutrophils Percent Auto 62.2 % (45.5-73.1); Platelet Count Result 331 k/mm3 (150-375); Red Blood Count 4.19 M/mm3 (4.2-5.4); Red Cell Distribution Width 13.3 % (11.5-14.5); White Blood Count 9.9 K/mm3 (4.5-10.0)
[2022-05-05 08:12] LABS: Appearance Urine Clear (Clear); Bilirubin Urine Negative (Negative); Blood Urine Negative (Negative); Color Urine Yellow (Yellow); Glucose Urine UA 2+ mg/dL (Negative); Ketones Urine Negative (Negative); Leukocyte Esterase Ur Negative LEU/UL (Negative); Nitrate Urine Negative (Negative); Protein Urine Negative (Negative); Urobilinogen Urine 0.2 mg/dL (<2.0); pH Urine 5.5 (5.0-9.0)
[2022-05-05 08:24] LABS: Chloride 105 mmol/L (98-107)
[2022-05-05 08:29] LABS: Bacteria Urine Trace /hpf; RBC Urine 0-2 /hpf (0-2); Squamous Epithelial Cell Urine Few /hpf (Few); WBC Urine 0-3 /hpf
[2022-05-05 08:31] LABS: Add Urine Microscopic? YES
[2022-05-05 08:32] LABS: Complement C3 136 mg/dL (88-165)
[2022-05-05 08:36] LABS: Parathyroid Intact 150.9 pg/mL (7.5-53.5)
[2022-05-05 08:42] LABS: Vitamin D 25 Hydroxy 25.6 ng/mL
[2022-05-05 08:46] LABS: Alanine Aminotransferase 36 U/L (6-35); Albumin Level 3.9 g/dL (3.5-5.1); Alkaline Phosphatase 105 U/L (38-126); Anion Gap 8 mmol/L (8-16); Aspartate Amino Transferase 25 U/L (14-36); Bilirubin,Total 0.3 mg/dL (0.2-1.3); Blood Urea Nitrogen 26 mg/dL (7-17); Calcium 8.7 mg/dL (8.4-10.2); Carbon Dioxide 24 mmol/L (22-30); Estimated Glomerular Filt Rate 43; Glucose 123 mg/dL (65-110); Potassium 3.9 mmol/L (3.4-5.0); Sodium 137 mmol/L (137-145); Uric Acid 6.6 mg/dL (2.5-7.5)
[2022-05-05 08:49] LABS: Creatinine Urine 107.2 mg/dL
[2022-05-05 08:54] LABS: MALB Creatinine Ratio 6.7 mg/g (0-30); Microalbumin Urine Random 7.2 mg/L (0-16.7)
[2022-05-05 08:57] LABS: Potassium Urine Random 39.4 meq/L; Sodium Urine Random 67 meq/L
[2022-05-05 09:03] LABS: Total Protein Urine Random < 5 mg/dL; Ur Ttl Prot Creatinine Ratio 0.05 mg/mg (0-0.20)
[2022-05-05 09:05] LABS: HIV 1/2 Ab P24 Ag Result Negative (Negative)
[2022-05-05 10:13] LABS: Erythrocyte Sedimentation Rate 21 mm/hr (0-20)
[2022-05-07 10:51] LABS: Rapid Plasma Reagin Non-Reactive (NonReactive)
[2022-05-08 21:35] LABS: Osmolality, Urine 523 mOsm/kg (50-1200)
[2022-05-10 16:17] LABS: Chloride Rand Ur 51 mmol/L (32-290); Chloride/Creatinine Rand Ur 56 (38-318); Creatinine Random Urine 91 mg/dL (20-275)
[2022-05-10 17:16] LABS: Complement Total CH50 >60 U/mL (31-60)
[2022-05-11 10:41] LABS: Anti Nuclear Antibody Pattern Nuclear, Speckled; Anti Nuclear Antibody Titer 1:40 (Negative)
[2022-05-12 23:41] LABS: ANCA Screen Negative (Negative)
== END 2022-05-05 07:25 | disposition home or self-care (01) ==
PROVIDERS: PCP Internal Medicine; Visit Provider Specialist
DX: E21.3 Hyperparathyroidism, unspecified (principal); R35.0 Frequency of micturition; E55.9 Vitamin D deficiency, unspecified; N18.9 Chronic kidney disease, unspecified
CPT/HCPCS: 36415; 80053; 81001; 82043; 82306; 82436; 82570; 82595; 83935; 83970; 84133; 84156; 84300; 84443; 84550; 85025; 85652; 86036; 86038; 86039; 86160; 86162; 86225; 86592; 86703; G0432

== ENCOUNTER 2022-05-07 16:17 | Outpatient (CLI) | payer OTHER, SELFPAY ==
[2022-05-07 16:39] LABS: Collection Time Urine 24 HOURS
[2022-05-07 16:57] LABS: Total Volume 24 Hour Urine 1400 ml
[2022-05-07 16:58] LABS: Patient Weight 160 Lbs
[2022-05-07 17:19] LABS: Creatinine Clearance Urine 71.9 ml/min (75-125); Creatinine Urine 98.6 mg/dL
== END 2022-05-07 16:18 | disposition home or self-care (01) ==
LOC: ANHLAB 16:18
PROVIDERS: PCP Internal Medicine; Visit Provider Family Medicine
DX: I10 Essential (primary) hypertension (principal)
CPT/HCPCS: 82575

== ENCOUNTER 2022-05-12 07:25 | Outpatient (CLI) | payer OTHER, SELFPAY ==
[2022-05-12 08:47] LABS: Basophils Absolute Auto 0.1 K/mm3 (0.0-0.1); Basophils Percent Auto 1.3 % (0.2-1.2); Eosinophils Absolute Auto 0.2 K/mm3 (0-0.3); Eosinophils Percent Auto 2.1 % (0-4.4); Hematocrit 37.1 % (37.0-47.0); Hemoglobin 12.6 g/dL (12.0-15.0); Immature Granulocyte Absolute 0.04 K/mm3 (0.00-0.031); Immature Granulocyte Percent A 0.4 % (0-0.5); Lymphocytes Percent Auto 25.8 % (18.3-44.2); Mean Corpuscular Hemoglobin 31.1 pg (26-34); Mean Corpuscular Volume 91.6 fl (80-100); Mean Platelet Volume 10.2 fl (7.4-10.4); Monocytes Absolute Auto 0.7 K/mm3 (0.1-0.6); Neutrophils Absolute Auto 5.9 K/mm3 (1.3-6.7); Neutrophils Percent Auto 63.4 % (45.5-73.1); Platelet Count Result 332 k/mm3 (150-375); Red Blood Count 4.05 M/mm3 (4.2-5.4); Red Cell Distribution Width 13.4 % (11.5-14.5); White Blood Count 9.3 K/mm3 (4.5-10.0)
[2022-05-12 08:50] LABS: Creatinine Urine 157.1 mg/dL
[2022-05-12 08:53] LABS: Alanine Aminotransferase 43 U/L (6-35); Albumin Level 4.3 g/dL (3.5-5.1); Alkaline Phosphatase 98 U/L (38-126); Anion Gap 4 mmol/L (8-16); Aspartate Amino Transferase 33 U/L (14-36); Bilirubin,Total 0.5 mg/dL (0.2-1.3); Blood Urea Nitrogen 27 mg/dL (7-17); Calcium 9.2 mg/dL (8.4-10.2); Carbon Dioxide 28 mmol/L (22-30); Chloride 102 mmol/L (98-107); Cholesterol 210 mg/dL (0-200); Estimated Glomerular Filt Rate 43; Glucose 109 mg/dL (65-110); HDL Direct 50 mg/dL; Sodium 134 mmol/L (137-145); Triglycerides 121 mg/dL (<150)
[2022-05-12 08:55] LABS: MALB Creatinine Ratio 5.7 mg/g (0-30)
[2022-05-12 09:03] LABS: LDL Cholesterol Direct 113 mg/dL
[2022-05-12 10:13] LABS: Free T4 Free Thyroxine 0.93 ng/mL (0.78-2.19)
[2022-05-12 11:15] LABS: Hemoglobin A1C 5.7 % (<5.7)
== END 2022-05-12 07:26 | disposition home or self-care (01) ==
PROVIDERS: PCP Internal Medicine; Visit Provider Internal Medicine
DX: I10 Essential (primary) hypertension (principal); E11.9 Type 2 diabetes mellitus without complications
CPT/HCPCS: 36415; 80053; 80061; 82043; 83036; 84439; 84443; 85025

== ENCOUNTER 2022-05-18 13:52 | Outpatient (CLI) | payer OTHER, SELFPAY ==
--- NOTE | ~2022-05-18 | DEXA_ITS ---
Bone Density Report Name: TORI ALONZO Age: 52 Sex: Female Ethnicity: White Date of : 1970 Indication: postmenopausal; screening for osteoporosis; asthma or emphysema; hysterectomy; rheumatoid arthritis; Referring Provider: [place], AFSHAN Study: Bone densitometry was performed. Exam Date: May 18, 2022 Accession number: [id number] Bone Density: Region BMD T-score Z-score Classification AP Spine(L1-L4) 0.906 -1.3 -0.3 Osteopenia Femoral Neck (Left) 0.727 -1.1 -0.1 Osteopenia Total Hip (Left) 0.966 0.2 0.8 Normal Femoral Neck (Right) 0.722 -1.1 -0.1 Osteopenia Total Hip (Right) 0.920 -0.2 0.5 Normal Total Hip Mean 0.943 0.0 0.7 Normal World Health Organization criteria for BMD impression classify patients as: Normal (T-score at or above -1.0), Osteopenia (T-score between -1.0 and -2.5), or Osteoporosis (T-score at or below -2.5). 10-year Fracture Risk(1): Major Osteoporotic Fracture 6.3% Hip Fracture 0.3% Reported Risk Factors: [place] (), Neck BMD=0.727, BMI=41.8, rheumatoid arthritis (1) FRAX(R) Version 3.08. Fracture probability calculated for an untreated patient. Fracture probability may be lower if the patient has received treatment. Clinical Information Provided by Patient: Has rheumatoid arthritis Has the following medical conditions: Asthma or Emphysema, Hysterectomy Patient maximum height was 64 Menopause Age: 35 No regular weight bearing exercise Does not regularly consume dairy products Drinks caffeinated beverages Onset of menses at age 10 Number of children 4 Impression: The patient has low bone mass, based on the Total Spine T-score. The patient has an estimated ten-year risk of hip fracture of 0.3% and an estimated ten-year risk of major fracture of 6.3%, based on the WHO FRAX algorithm. Discussion: BONE DENSITY IS LOW AT ONE OR MORE SKELETAL SITES. This patient's lowest T-score is low at one or more skeletal sites. It meets the World Health Organization's (WHO) criteria for ?low bone mass? (T-score between -1.0 and -2.5). The patient's 10-year risk of fracture as calculated by FRAX is less than the threshold where pharmacological therapy is recommended by the National Osteoporosis Foundation (NOF). However, all treatment decisions require clinical judgment and consideration of individual patient factors, including patient preferences, comorbidities, previous drug use, risk factors not captured in the FRAX model (e.g., frailty, falls, vitamin D deficiency, increased bone turnover, interval significant decline in bone density) and possible under or overestimation of fracture risk by FRAX. The patient should follow a healthful lifestyle (good nutrition with adequate calcium and vitamin D, and appropriate weight-bearing exercise).
== END 2022-05-18 13:53 | disposition home or self-care (01) ==
LOC: ANHIMG 13:54
PROVIDERS: PCP Internal Medicine; Visit Provider Internal Medicine
DX: Z78.0 Asymptomatic menopausal state (principal); M81.0 Age-related osteoporosis without current pathological fracture; M85.89 Other specified disorders of bone density and structure, multiple sites
CPT/HCPCS: 77080

== ENCOUNTER 2022-06-04 08:00 | Outpatient (CLI) | payer OTHER, SELFPAY ==
--- NOTE | ~2022-06-04 | US_ITS ---
US right upper quadrant INDICATION: Elevated enzymes. PROCEDURE: Realtime right upper abdominal ultrasound. COMPARISON: No prior studies for comparison. FINDINGS: The pancreas is normal without focal mass or pancreatic ductal dilation. Liver echotexture is increased, consistent with fatty infiltration. There is normal directional flow in the portal ve in. Gallbladder is surgically absent. Common bile duct measures 6 mm. No sonographic Mayberry's sign. IMPRESSION: 1: Hepatic steatosis. Reviewed, dictated and finalized at location B. DENTIAL SUPPORT SPECIALIST IMPRESSION: 1: Hepatic steatosis.
--- NOTE | ~2022-06-04 | US_ITS ---
US thyroid INDICATION: Hypothyroidism TECHNIQUE: Real-time sonographic images of the thyroid gland were obtained. COMPARISON: No prior studies for comparison. FINDINGS: The right thyroid lobe measures 5.1 x 1.7 x 1.5 cm. The left thyroid lobe measures 5.1 x 1 .6 x 1.1 cm. Thyroid echotexture is diffusely heterogeneous. In the right lobe there is a 9 mm hypoec hoic nodule with parallel orientation, solid appearance, wider than tall, smoothly marginated without echogenic foci, TR 4. In the left lobe there is an oval heterogeneous predominantly hypoechoic 9 mm mass with parallel orientation, solid appearance, smoothly marginated with a few punctate echogenic f oci, TR 5. Normal vascular flow is present. IMPRESSION.: 1. Bilateral thyroid nodules as described above. The left thyroid nodule is category TR 5 which is b orderline for biopsy. Recommend follow-up ultrasound and 12 months. Reviewed, dictated and finalized at location B. ERER IMPRESSION.: 1. Bilateral thyroid nodules as described above. The left thyroid nodule is ca tegory TR 5 which is borderline for biopsy. Recommend follow-up ultrasound and 12 months.
== END 2022-06-04 08:01 | disposition home or self-care (01) ==
PROVIDERS: PCP Internal Medicine; Visit Provider Internal Medicine
DX: R74.8 Abnormal levels of other serum enzymes (principal); E03.9 Hypothyroidism, unspecified; K76.0 Fatty (change of) liver, not elsewhere classified
CPT/HCPCS: 76536; 76705

== ENCOUNTER 2022-06-16 07:39 | Outpatient (CLI) | payer OTHER, SELFPAY ==
[2022-06-16 08:38] LABS: Basophils Absolute Auto 0.1 K/mm3 (0.0-0.1); Basophils Percent Auto 1.3 % (0.2-1.2); Eosinophils Absolute Auto 0.2 K/mm3 (0-0.3); Eosinophils Percent Auto 2.2 % (0-4.4); Hematocrit 38.2 % (37.0-47.0); Hemoglobin 12.7 g/dL (12.0-15.0); Immature Granulocyte Absolute 0.04 K/mm3 (0.00-0.031); Immature Granulocyte Percent A 0.4 % (0-0.5); Lymphocytes Absolute Auto 2.81 K/mm3 (0.9-3.2); Lymphocytes Percent Auto 25.2 % (18.3-44.2); Mean Corpuscular HGB Conc 33.2 g/dl (32-36); Mean Corpuscular Hemoglobin 31.2 pg (26-34); Mean Corpuscular Volume 93.9 fl (80-100); Mean Platelet Volume 10.6 fl (7.4-10.4); Monocytes Absolute Auto 0.8 K/mm3 (0.1-0.6); Monocytes Percent Auto 7.1 % (2.6-8.5); Neutrophils Absolute Auto 7.1 K/mm3 (1.3-6.7); Neutrophils Percent Auto 63.8 % (45.5-73.1); Platelet Count Result 345 k/mm3 (150-375); Red Blood Count 4.07 M/mm3 (4.2-5.4); Red Cell Distribution Width 13.3 % (11.5-14.5); White Blood Count 11.1 K/mm3 (4.5-10.0)
[2022-06-16 08:43] LABS: Alanine Aminotransferase 31 U/L (6-35); Albumin Level 4.1 g/dL (3.5-5.1); Alkaline Phosphatase 101 U/L (38-126); Anion Gap 4 mmol/L (8-16); Aspartate Amino Transferase 25 U/L (14-36); Bilirubin,Total 0.4 mg/dL (0.2-1.3); Blood Urea Nitrogen 24 mg/dL (7-17); Carbon Dioxide 27 mmol/L (22-30); Chloride 108 mmol/L (98-107); Cholesterol 124 mg/dL (0-200); Estimated Glomerular Filt Rate 39; Glucose 105 mg/dL (65-110); HDL Direct 45 mg/dL; Sodium 139 mmol/L (137-145); Triglycerides 91 mg/dL (<150)
[2022-06-16 08:52] LABS: Hemoglobin A1C 5.5 % (<5.7)
[2022-06-16 08:54] LABS: LDL Cholesterol Direct 52 mg/dL
[2022-06-16 08:55] LABS: Vitamin D 25 Hydroxy 48.2 ng/mL
[2022-06-16 09:17] LABS: Hepatitis B Surface Antigen Negative (Negative)
[2022-06-16 09:22] LABS: HAV RESULT Negative (Negative); Hepatitis B Core IgM Result Negative (Negative)
[2022-06-16 09:47] LABS: Hepatitis C Virus Antibody Negative (Negative)
[2022-06-20 06:09] LABS: GGT 31 U/L (3-70)
== END 2022-06-16 07:40 | disposition home or self-care (01) ==
LOC: ANHLAB 07:41
PROVIDERS: PCP Internal Medicine; Visit Provider Internal Medicine
DX: E78.5 Hyperlipidemia, unspecified (principal); R73.9 Hyperglycemia, unspecified; E55.9 Vitamin D deficiency, unspecified; R74.8 Abnormal levels of other serum enzymes
CPT/HCPCS: 36415; 80053; 80061; 80074; 82306; 82977; 83036; 84439; 84443; 85025

== ENCOUNTER 2022-07-05 16:29 | Outpatient (CLI) | payer OTHER, SELFPAY ==
--- NOTE | ~2022-07-05 | MM_ITS ---
EXAMINATION: MM screening becky BI w natalie HISTORY: Screening TECHNIQUE: Craniocaudal and mediolateral oblique 3-D tomosynthesis images were obtained and synthetic 2-D images were generated. CAD analysis was submitted and interpreted. COMPARISON: Comparison to multiple prior studies sequentially, with oldest reviewed study dated 06/30. BREAST PARENCHYMAL COMPOSITION: The breasts are almost entirely fatty. FINDINGS: There is no evidence of suspicious mass, calcification, or architectural distortion to sugg est malignancy in either breast. There has been no suspicious interval change. IMPRESSION: 1. No mammographic evidence of malignancy. 2. Recommend routine screening mammography in one year. BI-RADS Category 1: Negative Reviewed, dictated and finalized at location A.
== END 2022-07-05 16:30 | disposition home or self-care (01) ==
LOC: ANHIMG 16:33
PROVIDERS: PCP Internal Medicine; Visit Provider Internal Medicine
DX: Z12.31 Encounter for screening mammogram for malignant neoplasm of breast (principal)
CPT/HCPCS: 77063; 77067

== ENCOUNTER 2022-07-30 15:48 | Outpatient (CLI) | payer OTHER, SELFPAY ==
--- NOTE | ~2022-07-30 | CT_ITS ---
EXAMINATION: CT abdomen pelvis wo con DATE: 07/30/2022 16:11 INDICATION: Left hydronephrosis TECHNIQUE: Computed tomography (CT) of the abdomen and pelvis was performed without intravenous contr ast. The dose-length product was 1435.55 mGy-cm. Automated exposure control and iterative reconstruction technique were employed. COMPARISON: CT dated 05/13/2008. FINDINGS: There is bibasilar atelectasis. Heart size is normal. No significant pleural or pericardial effusion. Heart size is normal. Status post cholecystectomy. There are calcified granulomas in the s pleen. Small fat-containing umbilical hernia. There are calcified granulomas of the spleen. The liver , pancreas, adrenal glands and kidneys are unremarkable. No hydronephrosis. No ureteral stones. Nonob structive bowel gas pattern. There is mild emphysema. Mild lumbar spondylosis. IMPRESSION: 1. No acute abdominal abnormality. Reviewed, dictated and finalized at location A.
== END 2022-07-30 15:49 | disposition home or self-care (01) ==
PROVIDERS: PCP Internal Medicine; Visit Provider Urology
DX: N13.30 Unspecified hydronephrosis (principal)
CPT/HCPCS: 74176

== ENCOUNTER 2022-10-20 06:56 | Outpatient (CLI) | payer OTHER, SELFPAY ==
--- NOTE | ~2022-10-20 | CT_ITS ---
EXAMINATION:CT lung screening DATE: 10/20/2022 07:52 INDICATION: Personal history of nicotine dependence. Smoker who quit 5 years ago with 50 pack year hi story. TECHNIQUE: Computed tomography (CT) of the chest was performed without intravenous contrast. Automate d exposure control and iterative reconstruction technique were employed. The dose-length product (DLP ) was 401.56 mGy-cm. COMPARISON: Chest CT 08/29/2021 FINDINGS: There is mild emphysema. There is mild atelectasis bilaterally. There is a 3 mm nodule in r ight upper lobe. There is a 3 mm nodule in left upper lobe. A calcified left lung nodule and calcifie d left hilar and mediastinal lymph nodes are consistent with old granulomatous disease. No pleural ef fusion. The heart size is normal. No pericardial effusion. There are changes of cholecystectomy. Ther e is severe cervical spondylosis and moderate thoracic spondylosis. IMPRESSION: 1. Lung-RADS category 2: Benign appearance or behavior. Continue annual screening with noncontrast lo w-dose chest CT in 12 months. Reviewed, dictated and finalized at location A. IMPRESSION: 1. Lung-RADS category 2: Benign appearance or behavior. Continue annual screeni ng with noncontrast low-dose chest CT in 12 months.
[2022-10-20 07:53] LABS: Basophils Absolute Auto 0.1 K/mm3 (0.0-0.1); Basophils Percent Auto 1.1 % (0.2-1.2); Eosinophils Absolute Auto 0.2 K/mm3 (0-0.3); Eosinophils Percent Auto 2.2 % (0-4.4); Hematocrit 40.5 % (37.0-47.0); Immature Granulocyte Absolute 0.03 K/mm3 (0.00-0.031); Immature Granulocyte Percent A 0.3 % (0-0.5); Lymphocytes Absolute Auto 2.71 K/mm3 (0.9-3.2); Lymphocytes Percent Auto 28.3 % (18.3-44.2); Mean Corpuscular HGB Conc 32.1 g/dl (32-36); Mean Corpuscular Hemoglobin 29.7 pg (26-34); Mean Corpuscular Volume 92.5 fl (80-100); Mean Platelet Volume 10.2 fl (7.4-10.4); Monocytes Absolute Auto 0.7 K/mm3 (0.1-0.6); Monocytes Percent Auto 7.1 % (2.6-8.5); Neutrophils Absolute Auto 5.9 K/mm3 (1.3-6.7); Platelet Count Result 323 k/mm3 (150-375); Red Blood Count 4.38 M/mm3 (4.2-5.4); Red Cell Distribution Width 14.4 % (11.5-14.5); White Blood Count 9.6 K/mm3 (4.5-10.0)
[2022-10-20 08:10] LABS: Prothrombin Time 13.3 Seconds (11.1-14.7)
[2022-10-20 08:20] LABS: Alanine Aminotransferase 33 U/L (6-35); Albumin Level 4.3 g/dL (3.5-5.1); Alkaline Phosphatase 96 U/L (38-126); Anion Gap 5 mmol/L (8-16); Aspartate Amino Transferase 27 U/L (14-36); Bilirubin,Total 0.4 mg/dL (0.2-1.3); Blood Urea Nitrogen 21 mg/dL (7-17); Calcium 9.1 mg/dL (8.4-10.2); Carbon Dioxide 27 mmol/L (22-30); Chloride 106 mmol/L (98-107); Cholesterol 144 mg/dL (0-200); Estimated Glomerular Filt Rate 47; Glucose 108 mg/dL (65-110); HDL Direct 57 mg/dL; Potassium 4.2 mmol/L (3.4-5.0); Sodium 138 mmol/L (137-145); Triglycerides 116 mg/dL (<150)
[2022-10-20 08:31] LABS: LDL Cholesterol Direct 56 mg/dL
[2022-10-20 08:56] LABS: Free T4 Free Thyroxine 0.85 ng/mL (0.78-2.19)
[2022-10-20 09:07] LABS: Creatinine Urine 120.7 mg/dL
[2022-10-20 09:09] LABS: Hepatitis B Surface Antigen Negative (Negative)
[2022-10-20 09:12] LABS: MALB Creatinine Ratio 5.1 mg/g (0-30); Microalbumin Urine Random 6.1 mg/L (0-16.7)
[2022-10-20 09:26] LABS: Hepatitis B Surface Anti Res Negative; Hepatitis C Virus Antibody Negative (Negative)
[2022-10-20 09:52] LABS: Vitamin D 25 Hydroxy 53.1 ng/mL
[2022-10-20 11:24] LABS: Hemoglobin A1C 6.1 % (<5.7)
[2022-10-24 01:21] LABS: Actin Antibody (IgG) <20 U (<20)
[2022-10-24 04:18] LABS: Triiodothyronine T3 Free 3.1 pg/mL (2.3-4.2)
[2022-10-24 11:58] LABS: Mitochondrial (M2) Ab (IgG) <=20.0 U (<=20.0)
[2022-10-24 12:13] LABS: Anti Nuclear Antibody Pattern Nuclear, Speckled; Anti Nuclear Antibody Titer 1:40 (Negative)
[2022-10-25 12:03] LABS: Hepatitis B Core Ab Total Nonreactive (Nonreactive)
== END 2022-10-20 06:57 | disposition home or self-care (01) ==
PROVIDERS: PCP Internal Medicine; Referring Provider Internal Medicine Endocrinology, Diabetes & Metabolism; Visit Provider Internal Medicine
DX: Z12.2 Encounter for screening for malignant neoplasm of respiratory organs (principal); Z87.891 Personal history of nicotine dependence
CPT/HCPCS: 36415; 71271; 80053; 80061; 82043; 82306; 82728; 83036; 83520; 84439; 84443; 84481; 85025; 85610; 86038; 86039; 86364; 86704; 86706; 86803; 87340

== ENCOUNTER 2022-11-10 07:23 | Outpatient (CLI) | payer OTHER, SELFPAY ==
[2022-11-10 07:51] LABS: Basophils Absolute Auto 0.1 K/mm3 (0.0-0.1); Basophils Percent Auto 1.1 % (0.2-1.2); Eosinophils Absolute Auto 0.3 K/mm3 (0-0.3); Eosinophils Percent Auto 2.8 % (0-4.4); Hematocrit 40.2 % (37.0-47.0); Immature Granulocyte Absolute 0.02 K/mm3 (0.00-0.031); Immature Granulocyte Percent A 0.2 % (0-0.5); Lymphocytes Absolute Auto 2.83 K/mm3 (0.9-3.2); Mean Corpuscular HGB Conc 32.3 g/dl (32-36); Mean Corpuscular Hemoglobin 29.6 pg (26-34); Mean Corpuscular Volume 91.6 fl (80-100); Mean Platelet Volume 10.2 fl (7.4-10.4); Monocytes Absolute Auto 0.7 K/mm3 (0.1-0.6); Monocytes Percent Auto 7.2 % (2.6-8.5); Neutrophils Absolute Auto 5.3 K/mm3 (1.3-6.7); Neutrophils Percent Auto 57.7 % (45.5-73.1); Platelet Count Result 300 k/mm3 (150-375); Red Blood Count 4.39 M/mm3 (4.2-5.4); White Blood Count 9.1 K/mm3 (4.5-10.0)
[2022-11-10 07:55] LABS: Appearance Urine Clear (Clear); Bilirubin Urine Negative (Negative); Blood Urine Negative (Negative); Color Urine Yellow (Yellow); Glucose Urine UA 3+ mg/dL (Negative); Ketones Urine Negative (Negative); Leukocyte Esterase Ur Negative LEU/UL (Negative); Nitrate Urine Negative (Negative); Protein Urine Negative (Negative); Specific Grav Ur 1.021 (1.001-1.035); Urobilinogen Urine 0.2 mg/dL (<2.0)
[2022-11-10 08:08] LABS: Add Urine Microscopic? NO
[2022-11-10 08:13] LABS: Alanine Aminotransferase 40 U/L (6-35); Albumin Level 4.2 g/dL (3.5-5.1); Alkaline Phosphatase 95 U/L (38-126); Anion Gap 6 mmol/L (8-16); Aspartate Amino Transferase 32 U/L (14-36); Bilirubin,Total 0.4 mg/dL (0.2-1.3); Blood Urea Nitrogen 21 mg/dL (7-17); Calcium 9.3 mg/dL (8.4-10.2); Carbon Dioxide 25 mmol/L (22-30); Chloride 104 mmol/L (98-107); Estimated Glomerular Filt Rate 43; Glucose 107 mg/dL (65-110); Sodium 135 mmol/L (137-145); Uric Acid 5.8 mg/dL (2.5-7.5)
[2022-11-10 08:21] LABS: Parathyroid Intact 63.2 pg/mL (7.5-53.5)
[2022-11-10 08:23] LABS: Creatinine Urine 128.4 mg/dL
[2022-11-10 08:25] LABS: Potassium Urine Random 41.9 meq/L; Sodium Urine Random 76 meq/L
[2022-11-10 08:27] LABS: MALB Creatinine Ratio 5.5 mg/g (0-30); Microalbumin Urine Random 7.1 mg/L (0-16.7)
[2022-11-10 08:41] LABS: Thyroid Stimulating Hormone 0.368 uIU/mL (0.465-4.680)
[2022-11-10 09:33] LABS: Vitamin D 25 Hydroxy 50.8 ng/mL
[2022-11-10 13:33] LABS: Total Protein Urine Random < 5 mg/dL
[2022-11-13 22:04] LABS: Osmolality, Urine 564 mOsm/kg (50-1200)
[2022-11-15 18:58] LABS: Chloride Rand Ur 77 mmol/L (32-290); Chloride/Creatinine Rand Ur 64 (38-318); Creatinine Random Urine 120 mg/dL (20-275)
== END 2022-11-10 07:24 | disposition home or self-care (01) ==
LOC: ANHLAB 07:25
PROVIDERS: PCP Internal Medicine; Visit Provider Specialist
DX: I12.9 Hypertensive chronic kidney disease with stage 1 through stage 4 chronic kidney disease, or unspecified chronic kidney disease (principal); E11.22 Type 2 diabetes mellitus with diabetic chronic kidney disease; E78.5 Hyperlipidemia, unspecified; R60.9 Edema, unspecified; E21.3 Hyperparathyroidism, unspecified; N39.0 Urinary tract infection, site not specified; R35.0 Frequency of micturition; Z79.4 Long term (current) use of insulin
CPT/HCPCS: 36415; 80053; 81003; 81050; 82043; 82306; 82436; 82570; 83935; 83970; 84133; 84156; 84300; 84443; 84550; 85025

== ENCOUNTER 2023-01-05 07:03 | Outpatient (CLI) | payer OTHER, SELFPAY ==
[2023-01-05 08:15] LABS: Alanine Aminotransferase 35 U/L (6-35); Albumin Level 4.4 g/dL (3.5-5.1); Alkaline Phosphatase 90 U/L (38-126); Anion Gap 4 mmol/L (8-16); Aspartate Amino Transferase 27 U/L (14-36); Bilirubin,Total 0.5 mg/dL (0.2-1.3); Blood Urea Nitrogen 23 mg/dL (7-17); Calcium 9.4 mg/dL (8.4-10.2); Carbon Dioxide 31 mmol/L (22-30); Chloride 102 mmol/L (98-107); Estimated Glomerular Filt Rate 43; Glucose 113 mg/dL (65-110); Potassium 4.1 mmol/L (3.4-5.0); Sodium 137 mmol/L (137-145)
[2023-01-05 08:46] LABS: Thyroid Stimulating Hormone 0.262 uIU/mL (0.465-4.680)
[2023-01-05 08:51] LABS: Free T4 Free Thyroxine 1.22 ng/mL (0.78-2.19)
[2023-01-05 09:07] LABS: Vitamin B12 > 1000.0 pg/mL (239-931)
[2023-01-05 09:56] LABS: Folic Acid 7.2 ng/mL (2.76->20)
[2023-01-09 05:05] LABS: Thyroid Peroxidase Antibodies 245 IU/mL (<9)
[2023-01-09 20:09] LABS: Triiodothyronine T3 Free 2.8 pg/mL (2.3-4.2)
== END 2023-01-05 07:04 | disposition home or self-care (01) ==
LOC: ANHLAB 07:05
PROVIDERS: PCP Internal Medicine; Visit Provider Internal Medicine Endocrinology, Diabetes & Metabolism
DX: E03.9 Hypothyroidism, unspecified (principal)
CPT/HCPCS: 36415; 80053; 81003; 82043; 82306; 82607; 82746; 83036; 83970; 84439; 84443; 84481; 84550; 85025; 85652; 86376

== ENCOUNTER 2023-01-05 07:07 | Outpatient (CLI) | payer OTHER, SELFPAY ==
[2023-01-05 07:57] LABS: Appearance Urine Clear (Clear); Bilirubin Urine Negative (Negative); Blood Urine Negative (Negative); Color Urine Yellow (Yellow); Glucose Urine UA 3+ mg/dL (Negative); Ketones Urine Negative (Negative); Leukocyte Esterase Ur Negative LEU/UL (Negative); Nitrate Urine Negative (Negative); Protein Urine Negative (Negative); Specific Grav Ur 1.023 (1.001-1.035); Urobilinogen Urine 0.2 mg/dL (<2.0)
[2023-01-05 08:03] LABS: Add Urine Microscopic? NO; Basophils Absolute Auto 0.1 K/mm3 (0.0-0.1); Basophils Percent Auto 1.3 % (0.2-1.2); Eosinophils Absolute Auto 0.2 K/mm3 (0-0.3); Eosinophils Percent Auto 2.1 % (0-4.4); Hemoglobin 13.4 g/dL (12.0-15.0); Immature Granulocyte Absolute 0.03 K/mm3 (0.00-0.031); Immature Granulocyte Percent A 0.3 % (0-0.5); Lymphocytes Absolute Auto 2.74 K/mm3 (0.9-3.2); Lymphocytes Percent Auto 30.3 % (18.3-44.2); Mean Corpuscular HGB Conc 31.9 g/dl (32-36); Mean Corpuscular Hemoglobin 30.3 pg (26-34); Mean Platelet Volume 10.4 fl (7.4-10.4); Monocytes Absolute Auto 0.7 K/mm3 (0.1-0.6); Monocytes Percent Auto 7.3 % (2.6-8.5); Neutrophils Absolute Auto 5.3 K/mm3 (1.3-6.7); Neutrophils Percent Auto 58.7 % (45.5-73.1); Platelet Count Result 340 k/mm3 (150-375); Red Blood Count 4.42 M/mm3 (4.2-5.4); Red Cell Distribution Width 13.1 % (11.5-14.5)
[2023-01-05 08:13] LABS: Uric Acid 5.5 mg/dL (2.5-7.5)
[2023-01-05 08:45] LABS: Parathyroid Intact 55.8 pg/mL (7.5-53.5)
[2023-01-05 08:50] LABS: Vitamin D 25 Hydroxy 53.1 ng/mL
[2023-01-05 09:14] LABS: Hemoglobin A1C 5.8 % (<5.7)
[2023-01-05 09:36] LABS: Creatinine Urine 134.9 mg/dL
[2023-01-05 09:39] LABS: MALB Creatinine Ratio 6.5 mg/g (0-30); Microalbumin Urine Random 8.8 mg/L (0-16.7)
[2023-01-05 09:52] LABS: Erythrocyte Sedimentation Rate 15 mm/hr (0-20)
== END 2023-01-05 07:08 | disposition home or self-care (01) ==
PROVIDERS: PCP Internal Medicine; Visit Provider Specialist
DX: I12.9 Hypertensive chronic kidney disease with stage 1 through stage 4 chronic kidney disease, or unspecified chronic kidney disease (principal); N18.30 Chronic kidney disease, stage 3 unspecified; D64.9 Anemia, unspecified; E11.65 Type 2 diabetes mellitus with hyperglycemia; E78.5 Hyperlipidemia, unspecified; R60.9 Edema, unspecified; E55.9 Vitamin D deficiency, unspecified; R35.0 Frequency of micturition; E21.3 Hyperparathyroidism, unspecified; R94.6 Abnormal results of thyroid function studies
CPT/HCPCS: 36415; 81003; 82043; 82306; 83036; 83970; 84550; 85025; 85652

== ENCOUNTER 2023-02-19 07:08 | Outpatient (CLI) | payer OTHER, SELFPAY ==
[2023-02-19 09:08] LABS: Basophils Absolute Auto 0.1 K/mm3 (0.0-0.1); Basophils Percent Auto 1.1 % (0.2-1.2); Eosinophils Absolute Auto 0.2 K/mm3 (0-0.3); Eosinophils Percent Auto 2.2 % (0-4.4); Hematocrit 40.9 % (37.0-47.0); Hemoglobin 13.1 g/dL (12.0-15.0); Immature Granulocyte Absolute 0.01 K/mm3 (0.00-0.031); Immature Granulocyte Percent A 0.1 % (0-0.5); Lymphocytes Absolute Auto 2.32 K/mm3 (0.9-3.2); Lymphocytes Percent Auto 28.2 % (18.3-44.2); Mean Corpuscular Hemoglobin 30.5 pg (26-34); Mean Corpuscular Volume 95.3 fl (80-100); Mean Platelet Volume 10.4 fl (7.4-10.4); Monocytes Absolute Auto 0.7 K/mm3 (0.1-0.6); Monocytes Percent Auto 7.9 % (2.6-8.5); Neutrophils Percent Auto 60.5 % (45.5-73.1); Platelet Count Result 324 k/mm3 (150-375); Red Blood Count 4.29 M/mm3 (4.2-5.4); White Blood Count 8.2 K/mm3 (4.5-10.0)
[2023-02-19 09:21] LABS: Alanine Aminotransferase 32 U/L (6-35); Albumin Level 4.3 g/dL (3.5-5.1); Alkaline Phosphatase 78 U/L (38-126); Anion Gap 5 mmol/L (8-16); Aspartate Amino Transferase 28 U/L (14-36); Bilirubin,Total 0.5 mg/dL (0.2-1.3); Blood Urea Nitrogen 24 mg/dL (7-17); Calcium 9.3 mg/dL (8.4-10.2); Carbon Dioxide 29 mmol/L (22-30); Chloride 104 mmol/L (98-107); Cholesterol 135 mg/dL (0-200); Estimated Glomerular Filt Rate 39; Glucose 94 mg/dL (65-110); HDL Direct 59 mg/dL; Potassium 4.3 mmol/L (3.4-5.0); Sodium 138 mmol/L (137-145); Triglycerides 92 mg/dL (<150)
[2023-02-19 09:32] LABS: LDL Cholesterol Direct 56 mg/dL
[2023-02-19 09:48] LABS: Thyroid Stimulating Hormone 0.081 uIU/mL (0.465-4.680)
[2023-02-19 10:00] LABS: Free T4 Free Thyroxine 1.45 ng/mL (0.78-2.19)
[2023-02-19 10:08] LABS: Creatinine Urine 113.7 mg/dL
[2023-02-19 11:12] LABS: Hemoglobin A1C 5.7 % (<5.7)
[2023-02-19 11:55] LABS: MALB Creatinine Ratio < 5.3 mg/g (0-30); Microalbumin Urine Random < 6.0 mg/L (0-16.7)
== END 2023-02-19 07:09 | disposition home or self-care (01) ==
LOC: ANHLAB 07:10
PROVIDERS: PCP Internal Medicine; Visit Provider Internal Medicine
DX: E78.5 Hyperlipidemia, unspecified (principal); E11.9 Type 2 diabetes mellitus without complications
CPT/HCPCS: 36415; 80053; 80061; 82043; 83036; 84439; 84443; 85025

== ENCOUNTER 2023-03-16 07:10 | Outpatient (CLI) | payer OTHER, SELFPAY ==
[2023-03-16 07:48] LABS: Appearance Urine Clear (Clear); Bilirubin Urine Negative (Negative); Blood Urine Negative (Negative); Color Urine Yellow (Yellow); Glucose Urine UA 3+ mg/dL (Negative); Ketones Urine Negative (Negative); Leukocyte Esterase Ur Negative LEU/UL (Negative); Nitrate Urine Negative (Negative); Protein Urine Negative (Negative); Specific Grav Ur 1.029 (1.001-1.035); Urobilinogen Urine 0.2 mg/dL (<2.0); pH Urine 6.5 (5.0-9.0)
[2023-03-16 07:58] LABS: Alanine Aminotransferase 30 U/L (6-35); Albumin Level 4.3 g/dL (3.5-5.1); Alkaline Phosphatase 92 U/L (38-126); Anion Gap 7 mmol/L (8-16); Aspartate Amino Transferase 26 U/L (14-36); Bilirubin,Total 0.6 mg/dL (0.2-1.3); Blood Urea Nitrogen 24 mg/dL (7-17); Calcium 9.4 mg/dL (8.4-10.2); Carbon Dioxide 29 mmol/L (22-30); Chloride 103 mmol/L (98-107); Estimated Glomerular Filt Rate 47; Glucose 109 mg/dL (65-110); Potassium 4.4 mmol/L (3.4-5.0); Sodium 139 mmol/L (137-145)
[2023-03-16 08:05] LABS: Add Urine Microscopic? NO; Creatinine Urine 113.4 mg/dL
[2023-03-16 08:07] LABS: Parathyroid Intact 69.5 pg/mL (7.5-53.5)
[2023-03-16 08:10] LABS: MALB Creatinine Ratio 5.7 mg/g (0-30); Microalbumin Urine Random 6.5 mg/L (0-16.7)
[2023-03-16 08:20] LABS: Vitamin D 25 Hydroxy 51.6 ng/mL
[2023-03-16 08:26] LABS: Thyroid Stimulating Hormone 0.123 uIU/mL (0.465-4.680)
== END 2023-03-16 07:11 | disposition home or self-care (01) ==
LOC: ANHLAB 07:13
PROVIDERS: PCP Internal Medicine; Visit Provider Specialist
DX: N18.9 Chronic kidney disease, unspecified (principal); E55.9 Vitamin D deficiency, unspecified; R35.0 Frequency of micturition; E21.3 Hyperparathyroidism, unspecified; R94.6 Abnormal results of thyroid function studies
CPT/HCPCS: 36415; 80053; 81003; 82043; 82306; 83970; 84443

== ENCOUNTER 2023-06-18 06:46 | Outpatient (CLI) | payer OTHER, SELFPAY ==
[2023-06-18 07:29] LABS: Basophils Absolute Auto 0.1 K/mm3 (0.0-0.1); Basophils Percent Auto 1.4 % (0.2-1.2); Eosinophils Absolute Auto 0.2 K/mm3 (0-0.3); Eosinophils Percent Auto 2.6 % (0-4.4); Hematocrit 38.6 % (37.0-47.0); Hemoglobin 12.7 g/dL (12.0-15.0); Immature Granulocyte Absolute 0.03 K/mm3 (0.00-0.031); Immature Granulocyte Percent A 0.3 % (0-0.5); Lymphocytes Absolute Auto 2.78 K/mm3 (0.9-3.2); Lymphocytes Percent Auto 29.5 % (18.3-44.2); Mean Corpuscular HGB Conc 32.9 g/dl (32-36); Mean Corpuscular Hemoglobin 30.8 pg (26-34); Mean Corpuscular Volume 93.7 fl (80-100); Mean Platelet Volume 10.6 fl (7.4-10.4); Monocytes Absolute Auto 0.7 K/mm3 (0.1-0.6); Monocytes Percent Auto 7.8 % (2.6-8.5); Neutrophils Absolute Auto 5.5 K/mm3 (1.3-6.7); Neutrophils Percent Auto 58.4 % (45.5-73.1); Platelet Count Result 309 k/mm3 (150-375); Red Blood Count 4.12 M/mm3 (4.2-5.4); Red Cell Distribution Width 13.2 % (11.5-14.5); White Blood Count 9.4 K/mm3 (4.5-10.0)
[2023-06-18 07:42] LABS: Alanine Aminotransferase 24 U/L (6-35); Albumin Level 4.1 g/dL (3.5-5.1); Alkaline Phosphatase 85 U/L (38-126); Anion Gap 5 mmol/L (8-16); Aspartate Amino Transferase 24 U/L (14-36); Bilirubin,Total 0.4 mg/dL (0.2-1.3); Blood Urea Nitrogen 21 mg/dL (7-17); Calcium 9.4 mg/dL (8.4-10.2); Carbon Dioxide 27 mmol/L (22-30); Chloride 107 mmol/L (98-107); Cholesterol 124 mg/dL (0-200); Estimated Glomerular Filt Rate 52; Glucose 101 mg/dL (65-110); HDL Direct 58 mg/dL; Sodium 139 mmol/L (137-145); Triglycerides 112 mg/dL (<150); Uric Acid 4.5 mg/dL (2.5-7.5)
[2023-06-18 07:55] LABS: LDL Cholesterol Direct 50 mg/dL
[2023-06-18 08:10] LABS: Thyroid Stimulating Hormone 0.067 uIU/mL (0.465-4.680)
[2023-06-18 08:18] LABS: Appearance Urine Clear (Clear); Bilirubin Urine Negative (Negative); Blood Urine Negative (Negative); Color Urine Yellow (Yellow); Glucose Urine UA 3+ mg/dL (Negative); Ketones Urine Negative (Negative); Leukocyte Esterase Ur Negative LEU/UL (Negative); Nitrate Urine Negative (Negative); Protein Urine Negative (Negative); Specific Grav Ur 1.027 (1.001-1.035); Urobilinogen Urine 0.2 mg/dL (<2.0)
[2023-06-18 08:24] LABS: Add Urine Microscopic? YES
[2023-06-18 08:50] LABS: Hemoglobin A1C 5.8 % (<5.7)
[2023-06-18 08:53] LABS: Free T4 Free Thyroxine 1.09 ng/mL (0.78-2.19); Vitamin D 25 Hydroxy 49.7 ng/mL
[2023-06-18 09:09] LABS: MALB Creatinine Ratio < 4.7 mg/g (0-30); Microalbumin Urine Random < 6.0 mg/L (0-16.7)
== END 2023-06-18 06:47 | disposition home or self-care (01) ==
PROVIDERS: PCP Internal Medicine; Visit Provider Specialist
DX: I12.9 Hypertensive chronic kidney disease with stage 1 through stage 4 chronic kidney disease, or unspecified chronic kidney disease (principal); N18.30 Chronic kidney disease, stage 3 unspecified; R60.9 Edema, unspecified; Z79.4 Long term (current) use of insulin; E55.9 Vitamin D deficiency, unspecified; R35.0 Frequency of micturition; R73.09 Other abnormal glucose; E78.41 Elevated Lipoprotein(a); R94.6 Abnormal results of thyroid function studies; E21.3 Hyperparathyroidism, unspecified
CPT/HCPCS: 36415; 80053; 80061; 81001; 82043; 82306; 83036; 83970; 84439; 84443; 84550; 85025

== ENCOUNTER 2023-09-27 15:15 | Outpatient (CLI) | payer OTHER, SELFPAY ==
--- NOTE | ~2023-09-27 | US_ITS ---
EXAMINATION: US thyroid DATE: 09/27/2023 16:09 INDICATION: Hypothyroidism. TECHNIQUE: Multiple ultrasound images of the thyroid were obtained. COMPARISON: Ultrasound 06/04/2022 FINDINGS: The right thyroid lobe measures 3.6 x 1.0 x 1.4 cm. The left thyroid lobe measures 3.6 x 1.1 x 1.2 c m. In the right thyroid lobe, there is an 8 mm solid, hypoechoic, wider than tall nodule with irregu lar margin without echogenic foci (TI-RADS TR4). In the left thyroid lobe, there is a 12 mm solid, hy poechoic, wider than tall nodule with ill-defined margin without echogenic foci (TR4). In the left th yroid lobe, there is a 5 mm solid, hypoechoic, wider than tall nodule with smooth margin without echo genic foci (TR4). IMPRESSION: 1. Small thyroid nodules. Thyroid ultrasound is recommended in one year. Reviewed, dictated and finalized at location E.
== END 2023-09-27 15:16 | disposition home or self-care (01) ==
LOC: ANHIMG 15:18
PROVIDERS: PCP Internal Medicine; Visit Provider Internal Medicine
DX: Z12.2 Encounter for screening for malignant neoplasm of respiratory organs (principal); Z87.891 Personal history of nicotine dependence; E04.2 Nontoxic multinodular goiter
CPT/HCPCS: 76536

== ENCOUNTER 2023-10-05 06:48 | Outpatient (CLI) | payer OTHER, SELFPAY ==
[2023-10-05 08:04] LABS: Alanine Aminotransferase 24 U/L (6-35); Albumin Level 4.6 g/dL (3.5-5.1); Alkaline Phosphatase 85 U/L (38-126); Anion Gap 5 mmol/L (4-12); Aspartate Amino Transferase 24 U/L (14-36); Bilirubin,Total 0.5 mg/dL (0.2-1.3); Blood Urea Nitrogen 27 mg/dL (7-17); Calcium 9.8 mg/dL (8.4-10.2); Carbon Dioxide 29 mmol/L (22-30); Chloride 106 mmol/L (98-107); Cholesterol 148 mg/dL (0-200); Estimated Glomerular Filt Rate 39; Glucose 106 mg/dL (65-110); HDL Direct 71 mg/dL; Potassium 3.9 mmol/L (3.4-5.0); Sodium 140 mmol/L (137-145); Triglycerides 94 mg/dL (<150)
[2023-10-05 08:06] LABS: Uric Acid 5.8 mg/dL (2.5-7.5)
[2023-10-05 08:21] LABS: LDL Cholesterol Direct 71 mg/dL
[2023-10-05 08:22] LABS: Parathyroid Intact 41.8 pg/mL (7.5-53.5)
[2023-10-05 08:35] LABS: Free T4 Free Thyroxine 1.02 ng/mL (0.78-2.19)
[2023-10-05 08:36] LABS: Vitamin D 25 Hydroxy 58.7 ng/mL
[2023-10-05 08:43] LABS: Basophils Absolute Auto 0.1 K/mm3 (0.0-0.1); Basophils Percent Auto 1.3 % (0.2-1.2); Eosinophils Absolute Auto 0.2 K/mm3 (0-0.3); Eosinophils Percent Auto 2.3 % (0-4.4); Hematocrit 41.4 % (37.0-47.0); Hemoglobin 13.3 g/dL (12.0-15.0); Immature Granulocyte Absolute 0.02 K/mm3 (0.00-0.031); Immature Granulocyte Percent A 0.2 % (0-0.5); Lymphocytes Absolute Auto 2.73 K/mm3 (0.9-3.2); Lymphocytes Percent Auto 28.6 % (18.3-44.2); Mean Corpuscular HGB Conc 32.1 g/dl (32-36); Mean Corpuscular Hemoglobin 30.4 pg (26-34); Mean Corpuscular Volume 94.5 fl (80-100); Mean Platelet Volume 10.4 fl (7.4-10.4); Monocytes Absolute Auto 0.7 K/mm3 (0.1-0.6); Monocytes Percent Auto 6.8 % (2.6-8.5); Neutrophils Absolute Auto 5.8 K/mm3 (1.3-6.7); Neutrophils Percent Auto 60.8 % (45.5-73.1); Platelet Count Result 338 k/mm3 (150-375); Red Blood Count 4.38 M/mm3 (4.2-5.4); Red Cell Distribution Width 13.4 % (11.5-14.5); White Blood Count 9.6 K/mm3 (4.5-10.0)
[2023-10-05 09:02] LABS: Hemoglobin A1C 5.9 % (<5.7)
[2023-10-05 09:23] LABS: Appearance Urine Clear (Clear); Bilirubin Urine Negative (Negative); Blood Urine Negative (Negative); Color Urine Yellow (Yellow); Glucose Urine UA 3+ mg/dL (Negative); Ketones Urine Negative (Negative); Leukocyte Esterase Ur Negative LEU/UL (Negative); Nitrate Urine Negative (Negative); Protein Urine Negative (Negative); Specific Grav Ur 1.023 (1.001-1.035); Urobilinogen Urine 0.2 mg/dL (<2.0)
[2023-10-05 09:31] LABS: Add Urine Microscopic? NO
[2023-10-05 09:34] LABS: Erythrocyte Sedimentation Rate 18 mm/hr (0-20)
[2023-10-05 09:38] LABS: Creatinine Urine 121.8 mg/dL
[2023-10-05 09:45] LABS: MALB Creatinine Ratio 5.3 mg/g (0-30); Microalbumin Urine Random 6.5 mg/L (0-16.7)
== END 2023-10-05 06:49 | disposition home or self-care (01) ==
PROVIDERS: PCP Internal Medicine; Visit Provider Specialist
DX: I50.9 Heart failure, unspecified (principal); R80.9 Proteinuria, unspecified; N18.30 Chronic kidney disease, stage 3 unspecified; R60.9 Edema, unspecified; E55.9 Vitamin D deficiency, unspecified; N39.0 Urinary tract infection, site not specified; R73.09 Other abnormal glucose; E21.3 Hyperparathyroidism, unspecified; R94.6 Abnormal results of thyroid function studies
CPT/HCPCS: 36415; 80053; 80061; 81003; 82043; 82306; 83036; 83970; 84439; 84443; 84550; 85025; 85652

== ENCOUNTER 2023-10-22 07:05 | Outpatient (CLI) | payer OTHER, SELFPAY ==
--- NOTE | ~2023-10-22 | CT_ITS ---
CT Scan of the Chest without Contrast: Clinical Indication: Lung cancer screening, nicotine dependence Technique: Contiguous sections were acquired throughout the chest without intravenous contrast. Dose reduction technique was used on this scan by utilizing automated exposure control and iterative recon struction technique. The dose-length product (DLP) was 361.85 mGy-cm. COMPARISON: 10/20/2022 Findings: There is no evidence of any significant mediastinal, hilar or axillary lymphadenopathy. The mediastin al soft tissues appear normal. There is no evidence of pleural or pericardial effusion. Stable 3 mm left upper lobe pulmonary nodule. Images through the upper abdomen reveal no abnormalities. Impression: Lung RADS 2: Benign appearance. 12 month follow-up screening CT advised. Reviewed, dictated and finalized at location . Impression: Lung RADS 2: Benign appearance. 12 month follow-up screening CT advised.
== END 2023-10-22 07:06 | disposition home or self-care (01) ==
PROVIDERS: PCP Internal Medicine; Visit Provider Internal Medicine
DX: Z12.2 Encounter for screening for malignant neoplasm of respiratory organs (principal); Z87.891 Personal history of nicotine dependence
CPT/HCPCS: 71271

== ENCOUNTER 2024-01-11 06:51 | Outpatient (CLI) | payer OTHER, SELFPAY ==
[2024-01-11 08:19] LABS: Add Urine Microscopic? NO; Appearance Urine Clear (Clear); Bilirubin Urine Negative (Negative); Blood Urine Negative (Negative); Color Urine Yellow (Yellow); Glucose Urine UA 3+ mg/dL (Negative); Ketones Urine Negative (Negative); Leukocyte Esterase Ur Negative LEU/UL (Negative); Nitrate Urine Negative (Negative); Protein Urine Negative (Negative); Specific Grav Ur 1.019 (1.001-1.035); Urobilinogen Urine 0.2 mg/dL (<2.0); pH Urine 5.5 (5.0-9.0)
[2024-01-11 08:49] LABS: Alanine Aminotransferase 26 U/L (6-35); Albumin Level 4.4 g/dL (3.5-5.1); Alkaline Phosphatase 76 U/L (38-126); Anion Gap 8 mmol/L (4-12); Aspartate Amino Transferase 26 U/L (14-36); Bilirubin,Total 0.3 mg/dL (0.2-1.3); Blood Urea Nitrogen 21 mg/dL (7-17); Calcium 9.4 mg/dL (8.4-10.2); Carbon Dioxide 30 mmol/L (22-30); Chloride 101 mmol/L (98-107); Estimated Glomerular Filt Rate 43; Glucose 95 mg/dL (65-110); Potassium 3.8 mmol/L (3.4-5.0); Sodium 139 mmol/L (137-145); Uric Acid 4.8 mg/dL (2.5-7.5)
[2024-01-11 08:53] LABS: Creatinine Urine 122.8 mg/dL
[2024-01-11 08:57] LABS: MALB Creatinine Ratio 7.2 mg/g (0-30); Microalbumin Urine Random 8.8 mg/L (0-16.7)
[2024-01-11 09:01] LABS: Parathyroid Intact 36.4 pg/mL (14.5-75.2)
[2024-01-11 09:08] LABS: Vitamin D 25 Hydroxy 61.8 ng/mL
[2024-01-11 09:29] LABS: Hemoglobin A1C 5.6 % (<5.7)
== END 2024-01-11 06:52 | disposition home or self-care (01) ==
LOC: ANHLAB 06:56
PROVIDERS: PCP Internal Medicine; Visit Provider Specialist
DX: I12.9 Hypertensive chronic kidney disease with stage 1 through stage 4 chronic kidney disease, or unspecified chronic kidney disease (principal); N18.9 Chronic kidney disease, unspecified; E55.9 Vitamin D deficiency, unspecified; R35.0 Frequency of micturition; N39.0 Urinary tract infection, site not specified; R73.09 Other abnormal glucose; E78.41 Elevated Lipoprotein(a); E21.3 Hyperparathyroidism, unspecified; R94.6 Abnormal results of thyroid function studies
CPT/HCPCS: 36415; 80053; 81003; 82043; 82306; 83036; 83970; 84443; 84550

== ENCOUNTER 2024-01-18 07:37 | Outpatient (CLI) | payer OTHER, SELFPAY ==
--- NOTE | ~2024-01-18 | XR_ITS ---
EXAMINATION: XR lumbar spine 2-3V DATE: 01/18/2024 08:33 INDICATION: Arthralgia. TECHNIQUE: Anteroposterior and lateral views of the lumbar spine, and cone-down lateral view of the l umbosacral junction were obtained. COMPARISON: None. FINDINGS: Alignment is normal. Vertebral body heights are normal. No evident fractures. Disc heights are normal. Moderate facet osteoarthritis at L5-S1 with minimal to mild facet osteoarthritis and more cephalad lumbar spine. Cholecystectomy clips in right upper quadrant. IMPRESSION: 1. Multilevel minimal to mild lumbar and moderate lumbosacral facet osteoarthritis. Reviewed, dictated and finalized at location A. IMPRESSION: 1. Multilevel minimal to mild lumbar and moderate lumbosacral facet osteoarthri tis.
--- NOTE | ~2024-01-18 | XR_ITS ---
EXAMINATION: XR hand LT min 3V, XR hand RT min 3V DATE: 01/18/2024 08:31 INDICATION: Arthralgias diffuse bony weeks TECHNIQUE: 1. Posteroanterior, oblique and lateral views of the left hand were obtained. 2. Posteroanterior, oblique and lateral views of the right hand were obtained. COMPARISON: None. FINDINGS: Normal alignment at the bilateral hands and wrists. No fracture. Joint spaces are normal at the bilat eral hands and wrists. No erosions to suggest inflammatory arthritis. Soft tissues are unremarkable. IMPRESSION: 1. Normal bilateral hand radiographs. Reviewed, dictated and finalized at location A. IMPRESSION: 1. Normal bilateral hand radiographs.
--- NOTE | ~2024-01-18 | XR_ITS ---
EXAMINATION: XR hip RT min 2V DATE: 01/18/2024 08:32 INDICATION: Arthralgia. Diffuse bone aches TECHNIQUE: 1. Anteroposterior and frog-leg lateral views of the left hip were obtained. 2. Anteroposterior and frog-leg lateral views of the right hip were obtained. 3. Anteroposterior and left and right oblique views of the bilateral sacroiliac joints were obtained. COMPARISON: None. FINDINGS: Alignment is normal at both hips. No fracture or suspected osteonecrosis. Bilateral hip joint spaces are normal. Mild osteoarthritis at the bilateral sacroiliac joints. A few phleboliths in the pelvis. IMPRESSION: 1. Mild bilateral sacroiliac osteoarthritis with normal bilateral hips. Reviewed, dictated and finalized at location A.
--- NOTE | ~2024-01-18 | XR_ITS ---
EXAMINATION: XR knee LT 3V, XR knee RT 3V DATE: 01/18/2024 08:31 INDICATION: Arthralgia. Diffuse bone aches. TECHNIQUE: 1. Standing anteroposterior, lateral and sunrise views of the right knee were obtained 2. Standing anteroposterior, lateral and sunrise views of the left knee were obtained COMPARISON: Left knee radiographs dated 07/10/2021 FINDINGS: Right knee: Alignment is normal. No fracture. Mild joint space. The medial compartment of the right knee. Joint s paces in the lateral and patellofemoral compartments are normal. No erosions or osteophytosis. No raquel nt effusion. Soft tissues are unremarkable. Left knee: Alignment is normal. No fracture. Minimal joint space narrowing the medial compartment of the left kn ee. Joint spaces in the lateral and patellofemoral compartments are normal. Bone island at the medial capsule region of the proximal tibia. No interval change in a nonaggressive expansile lucent lesion at the proximal metadiaphyseal region of the left fibula with remodeling of the cortices without endo steal scalloping or periosteal reaction. IMPRESSION: 1. Mild osteoarthritis at the medial compartments of both knees. 2. 2 1/2 years of stability of a benign expansile lytic lesion at the proximal metadiaphyseal region of the left fibula which could represent fibrous dysplasia, aneurysmal bone cyst or artifactual appea kami related to old fracture. Reviewed, dictated and finalized at location A. IMPRESSION: 1. Mild osteoarthritis at the medial compartments of both knees. 2. 2 1/2 years of stability of a benign expansile lytic lesion at the proximal metadiaphyseal region of the left fibula which could represent fibrous dysplasi a, aneurysmal bone cyst or artifactual appearance related to old fracture.
--- NOTE | ~2024-01-18 | XR_ITS ---
EXAMINATION: XR hip LT min 2V, XR sacroiliac joints min 3V DATE: 01/18/2024 08:32 (accession [id number]), 01/18/2024 08:33 (accession [id number]) INDICATION: Arthralgia. Diffuse bone aches TECHNIQUE: 1. Anteroposterior and frog-leg lateral views of the left hip were obtained. 2. Anteroposterior and frog-leg lateral views of the right hip were obtained. 3. Anteroposterior and left and right oblique views of the bilateral sacroiliac joints were obtained. COMPARISON: None. FINDINGS: Alignment is normal at both hips. No fracture or suspected osteonecrosis. Bilateral hip joint spaces are normal. Mild osteoarthritis at the bilateral sacroiliac joints. A few phleboliths in the pelvis. IMPRESSION: 1. Mild bilateral sacroiliac osteoarthritis with normal bilateral hips. Reviewed, dictated and finalized at location A. IMPRESSION: 1. Mild bilateral sacroiliac osteoarthritis with normal bilateral hips.
--- NOTE | ~2024-01-18 | XR_ITS ---
EXAMINATION: XR foot RT min 3V, XR foot LT min 3V DATE: 01/18/2024 08:32 INDICATION: Arthralgias. Diffuse bone aches TECHNIQUE: 1. Dorsoplantar, two oblique and lateral views of the left foot were obtained. 2. Dorsoplantar, two oblique and lateral views of the right foot were obtained. COMPARISON: None. FINDINGS: Bone alignment is normal at the bilateral feet and ankles. No fracture. Mild osteoarthritis at the bi lateral calcaneocuboid, first metatarsophalangeal and a few bilateral tarsometatarsal and interphalan geal joints. No erosions to suggest inflammatory arthritis. There are small bilateral Achilles and pl lou calcaneal spurs. Soft tissues are unremarkable. IMPRESSION: 1. Typical distribution of mild polyarticular osteoarthritis in both feet along with small bilateral Achilles and plantar calcaneal spurs. Reviewed, dictated and finalized at location A. IMPRESSION: 1. Typical distribution of mild polyarticular osteoarthritis in both feet along with small bilateral Achilles and plantar calcaneal spurs.
--- NOTE | ~2024-01-18 | XR_ITS ---
EXAMINATION: XR chest 2V DATE: 01/18/2024 08:33 INDICATION: Arthralgias TECHNIQUE: PA and lateral views of the chest were obtained. COMPARISON: Chest CT dated 10/22/2023 FINDINGS: Unchanged mild lingular discoid atelectasis/scarring. Remainder of the lungs are clear. No pulmonary edema, pleural effusion or pneumothorax. The cardiomediastinal silhouette is normal. Cholecystectomy clips in the right upper quadrant. Mild upper thoracic dextrocurvature with mild to moderate upper th oracic spondylosis. IMPRESSION: 1. Unchanged mild lingular discoid atelectasis/scarring. No acute cardiopulmonary disease. Reviewed, dictated and finalized at location A. IMPRESSION: 1. Unchanged mild lingular discoid atelectasis/scarring. No acute cardiopulmona ry disease.
== END 2024-01-18 07:38 | disposition home or self-care (01) ==
PROVIDERS: PCP Internal Medicine; Visit Provider Physician Assistant Medical
DX: M16.0 Bilateral primary osteoarthritis of hip (principal); M25.542 Pain in joints of left hand; R91.8 Other nonspecific abnormal finding of lung field; M19.072 Primary osteoarthritis, left ankle and foot; M19.071 Primary osteoarthritis, right ankle and foot; M17.0 Bilateral primary osteoarthritis of knee; M89.8X6 Other specified disorders of bone, lower leg; M46.1 Sacroiliitis, not elsewhere classified; M47.817 Spondylosis without myelopathy or radiculopathy, lumbosacral region; M54.2 Cervicalgia
CPT/HCPCS: 71046; 72100; 72202; 73130; 73502; 73562; 73630

== ENCOUNTER 2024-01-29 15:36 | Outpatient (CLI) | payer OTHER, SELFPAY ==
--- NOTE | ~2024-01-29 | MM_ITS ---
EXAMINATION: MM screening becky BI w natalie HISTORY: Screening TECHNIQUE: Craniocaudal and mediolateral oblique 3-D tomosynthesis images were obtained and synthetic 2-D images were generated. CAD analysis was submitted and interpreted. COMPARISON: Comparison to multiple prior studies sequentially, with oldest reviewed study dated 01/13. BREAST PARENCHYMAL COMPOSITION: Not Dense: The breasts are almost entirely fatty. FINDINGS: There is no evidence of suspicious mass, calcification, or architectural distortion to sugg est malignancy in the left breast. There has been no suspicious interval change. IMPRESSION: 1. No mammographic evidence of malignancy. 2. Recommend routine screening mammography in one year. BI-RADS Category 1: Negative Reviewed, dictated and finalized at location B.
== END 2024-01-29 15:37 | disposition home or self-care (01) ==
LOC: ANHIMG 15:40
PROVIDERS: PCP Internal Medicine; Visit Provider Internal Medicine
DX: Z12.31 Encounter for screening mammogram for malignant neoplasm of breast (principal)
CPT/HCPCS: 77063; 77067

== ENCOUNTER 2024-03-10 06:53 | Outpatient (CLI) | payer OTHER, SELFPAY ==
[2024-03-10 07:36] LABS: Basophils Absolute Auto 0.1 K/mm3 (0.0-0.1); Basophils Percent Auto 1.3 % (0.2-1.2); Eosinophils Absolute Auto 0.3 K/mm3 (0-0.3); Eosinophils Percent Auto 2.4 % (0-4.4); Hematocrit 40.6 % (37.0-47.0); Hemoglobin 13.3 g/dL (12.0-15.0); Immature Granulocyte Absolute 0.05 K/mm3 (0.00-0.031); Immature Granulocyte Percent A 0.5 % (0-0.5); Lymphocytes Absolute Auto 2.99 K/mm3 (0.9-3.2); Lymphocytes Percent Auto 28.9 % (18.3-44.2); Mean Corpuscular HGB Conc 32.8 g/dl (32-36); Mean Corpuscular Hemoglobin 31.1 pg (26-34); Mean Corpuscular Volume 95.1 fl (80-100); Mean Platelet Volume 10.1 fl (7.4-10.4); Monocytes Absolute Auto 0.8 K/mm3 (0.1-0.6); Neutrophils Absolute Auto 6.1 K/mm3 (1.3-6.7); Neutrophils Percent Auto 58.9 % (45.5-73.1); Platelet Count Result 297 k/mm3 (150-375); Red Blood Count 4.27 M/mm3 (4.2-5.4); Red Cell Distribution Width 13.3 % (11.5-14.5); White Blood Count 10.3 K/mm3 (4.5-10.0)
[2024-03-10 07:50] LABS: Hemoglobin A1C 5.5 % (<5.7)
[2024-03-10 07:54] LABS: Alanine Aminotransferase 21 U/L (6-35); Albumin Level 4.4 g/dL (3.5-5.1); Alkaline Phosphatase 67 U/L (38-126); Anion Gap 2 mmol/L (4-12); Aspartate Amino Transferase 25 U/L (14-36); Bilirubin,Total 0.4 mg/dL (0.2-1.3); Blood Urea Nitrogen 22 mg/dL (7-17); Calcium 9.6 mg/dL (8.4-10.2); Carbon Dioxide 33 mmol/L (22-30); Chloride 102 mmol/L (98-107); Cholesterol 129 mg/dL (0-200); Estimated Glomerular Filt Rate 36; Glucose 97 mg/dL (65-110); HDL Direct 61 mg/dL; Potassium 4.2 mmol/L (3.4-5.0); Sodium 137 mmol/L (137-145); Triglycerides 125 mg/dL (<150)
[2024-03-10 08:06] LABS: LDL Cholesterol Direct 36 mg/dL
[2024-03-10 08:10] LABS: Free T4 Free Thyroxine 1.15 ng/mL (0.78-2.19)
[2024-03-10 08:22] LABS: Thyroid Stimulating Hormone 0.887 uIU/mL (0.465-4.680)
[2024-03-10 10:29] LABS: Creatinine Urine 95.8 mg/dL
[2024-03-10 10:36] LABS: MALB Creatinine Ratio < 6.3 mg/g (0-30); Microalbumin Urine Random < 6.0 mg/L (0-16.7)
== END 2024-03-10 06:54 | disposition home or self-care (01) ==
PROVIDERS: PCP Internal Medicine; Visit Provider Internal Medicine
DX: E11.9 Type 2 diabetes mellitus without complications (principal); E78.5 Hyperlipidemia, unspecified
CPT/HCPCS: 36415; 80053; 80061; 82043; 83036; 84439; 84443; 85025

== ENCOUNTER 2024-06-12 13:21 | Outpatient (CLI) | payer OTHER, SELFPAY | END 2024-06-12 13:22 | disposition home or self-care (01) | LOC: MICIMG 13:22 | PROVIDERS: PCP Internal Medicine; Visit Provider Internal Medicine Nephrology | DX: I12.9 Hypertensive chronic kidney disease with stage 1 through stage 4 chronic kidney disease, or unspecified chronic kidney disease (principal); N18.32 Chronic kidney disease, stage 3b | CPT/HCPCS: 76775 ==

== ENCOUNTER 2024-06-12 14:11 | Outpatient (CLI) | payer OTHER, SELFPAY ==
[2024-06-12 15:04] LABS: Albumin Level 4.2 g/dL (3.5-5.1); Anion Gap 7 mmol/L (4-12); Blood Urea Nitrogen 19 mg/dL (7-17); Calcium 9.9 mg/dL (8.4-10.2); Carbon Dioxide 33 mmol/L (22-30); Chloride 98 mmol/L (98-107); Estimated Glomerular Filt Rate 38; Glucose 82 mg/dL (65-110); Phosphorus 4.1 mg/dL (2.5-4.5); Potassium 4.3 mmol/L (3.4-5.0); Sodium 138 mmol/L (137-145)
[2024-06-12 15:20] LABS: Creatinine Urine 30.8 mg/dL; Total Protein Urine Random 14 mg/dL; Ur Ttl Prot Creatinine Ratio 0.45 mg/mg (0-0.20)
[2024-06-12 15:22] LABS: Parathyroid Intact 25.6 pg/mL (14.5-75.2)
== END 2024-06-12 14:12 | disposition home or self-care (01) ==
PROVIDERS: PCP Internal Medicine; Visit Provider Internal Medicine Nephrology
DX: I12.9 Hypertensive chronic kidney disease with stage 1 through stage 4 chronic kidney disease, or unspecified chronic kidney disease (principal); N18.32 Chronic kidney disease, stage 3b
CPT/HCPCS: 36415; 80069; 82306; 82570; 83970; 84156

== ENCOUNTER 2024-06-20 07:41 | Outpatient (CLI) | payer OTHER, SELFPAY ==
--- OUTSIDE RECORDS SUMMARY | 2024-06-20 07:47 | XMS_ITS | Data Portability ---
Author Organization [place] - [facility] [employer], Main Office Address [address] [place] [address] Care Team Providers Care Welder Explosion Name Role Phone NOLBERTO DAVIS Primary Care Provider [phone] NOLBERTO DAVIS Referring Provider MISTY YUAN Regulatory Submissions Specialist YEIMI LYNN Commercial [employer] Manager TANIA ESPITIA Subsurface Augmentee Elint Operator [phone] [place] [address] - PULMONOLOGY Pulmonologi st LILIA DURÁN Concreter Assessment Encounter Date Assessment Date Assessment LastModified by Organization Details LastModified Time 02/27/2023 02/27/2023 06/16/2022: GGT WNL CMP: BUN 24/Cr 1.40, GFR 39 Lipids: WNL TSH: WNL VIT D WNL A1C 5.5 CBC WBC 11.1 10/20/2022: FT4 0.85 BUN 21/Cr 1.20, GFR 47 A1C 6.1 Hep B/C: Neg 02/19/2023: A1C 5.7 Cr 1.40, GFR 39 TSH 0.081L Not available 02/27/2023 10:23:31 07/01/2023 07/01/2023 06/16/2022: GGT WNL CMP: BUN 24/Cr 1.40, GFR 39 Lipids: WNL TSH: WNL VIT D WNL A1C 5.5 CBC WBC 11.1 10/20/2022: FT4 0.85 BUN 21/Cr 1.20, GFR 47 A1C 6.1 Hep B/C: Neg 02/19/2023: A1C 5.7 Cr 1.40, GFR 39 TSH 0.081L 06/18/2023: A1C 5.8 BUN/r/GFR: 05/05. TSH 0.067L, FT4 1.09 Lipids; [facility] Not available 07/01/2023 09:50:53 10/23/2023 10/23/2023 06/16/2022: GGT WNL CMP: BUN 24/Cr 1.40, GFR 39 Lipids: WNL TSH: WNL VIT D WNL A1C 5.5 CBC WBC 11.1 10/20/2022: FT4 0.85 BUN 21/Cr 1.20, GFR 47 A1C 6.1 Hep B/C: Neg 02/19/2023: A1C 5.7 Cr 1.40, GFR 39 TSH 0.081L 06/18/2023: A1C 5.8 BUN/r/GFR: 05/05. TSH 0.067L, FT4 1.09 Lipids; [facility] 10/05/2203: Dr Surjit MACIAS A1C 5.9 BUN 27, Cr 1.40, GFR 39 WBC/TSH: Stable Chol 148, HDL 71, LDL 71, TG 94 (stable) Not available 10/16/2023 14:19:41 11/27/2023 11/27/2023 06/16/2022: GGT WNL CMP: BUN 24/Cr 1.40, GFR 39 Lipids: WNL TSH: WNL VIT D WNL A1C 5.5 CBC WBC 11.1 10/20/2022: FT4 0.85 BUN 21/Cr 1.20, GFR 47 A1C 6.1 Hep B/C: Neg 02/19/2023: A1C 5.7 Cr 1.40, GFR 39 TSH 0.081L 06/18/2023: A1C 5.8 BUN/r/GFR: 05/05. TSH 0.067L, FT4 1.09 Lipids; [facility] 10/05/2203: Dr Surjit MACIAS A1C 5.9 BUN 27, Cr 1.40, GFR 39 WBC/TSH: Stable Chol 148, HDL 71, LDL 71, TG 94 (stable) Not available 11/27/2023 09:37:44 03/18/2024 03/18/2024 06/16/2022: GGT WNL CMP: BUN 24/Cr 1.40, GFR 39 Lipids: WNL TSH: WNL VIT D WNL A1C 5.5 CBC WBC 11.1 10/20/2022: FT4 0.85 BUN 21/Cr 1.20, GFR 47 A1C 6.1 Hep B/C: Neg 02/19/2023: A1C 5.7 Cr 1.40, GFR 39 TSH 0.081L 06/18/2023: A1C 5.8 BUN/r/GFR: 21/1.1/52 TSH 0.067L, FT4 1.09 Lipids; WNL 10/05/2203: Dr Surjit MACIAS A1C 5.9 BUN 27, Cr 1.40, GFR 39 WBC/TSH: Stable Chol 148, HDL 71, LDL 71, TG 94 (stable) 03/10/2024: BUN/Cr/GFR: 22/1.5/36 WBC: 10.3 [email or web address] Not available 03/18/2024 10:02:58 Plan of Treatment Reminders Order Date Submit Date Provider Last Modified By Organization Details Last Modified Time Details Appointments Any 15 2024 08:45A Tanika chase MD Not available Not available Not available Lab lipid panel, serum [address] (Lab), [address] [place] [address], [address], 03/18/2024 10:32:22 CMP, serum or plasma 2023 024 [facility] (Lab), [address] [place] [address], [address], 06/12/2024 17:03:56 CBC w/ auto diff [address] (Lab), [address] [place] [address], [phone], 03/18/2024 10:32:23 TSH + free T4, serum [address] (Lab), [address], [place], [address], 03/18/2024 10:32:23 HbA1c (hemoglob in A1c), blood [address] (Lab), [address], [place], [address], 03/18/2024 10:32:21 microalbu min, urine [address] (Lab), [address], [place], [address], 03/18/2024 10:32:22 lipid panel, serum 2023 024 [facility] (Lab), [address] [facility] [address], [place], [address], 03/10/2024 10:33:35 CMP, serum or plasma 2023 024 [facility] (Lab), [address], [place], [address], 03/10/2024 10:33:35 CBC w/ auto diff 2023 024 [facility] (Lab), [address] [facility] [address], [place], [address], 03/10/2024 10:33:36 TSH + free T4, serum 2023 024 [facility] (Lab), [address], [place], [address], 03/10/2024 10:33:35 HbA1c (hemoglob in A1c), blood 2023 024 [facility] (Lab), [address], [place], [address], 03/10/2024 10:33:35 microalbu min, urine 2023 024 [facility] (Lab), [address] [place] [address], [address], 03/10/2024 12:18:29 lipid panel, serum [address] (Lab), [address] [place] [address], [address], 04/22/2024 17:36:53 CMP, serum or plasma [address] (Lab), [address] [place] [address], [address], 04/22/2024 17:36:54 CBC w/ auto diff [address] (Lab), [address] [place] [address], [address], 04/22/2024 17:36:54 TSH + free T4, serum [address] (Lab), [address] [place] [address], [address], 04/22/2024 17:36:54 HbA1c (hemoglob in A1c), blood [address] (Lab), [address] [place] [address], [address], 04/22/2024 17:36:53 microalbu min, urine [address] (Lab), [address] [place] [address], [address], 04/22/2024 17:36:53 lipid panel, serum [address] (Lab), [address] [place] [address], [address], 12/30/2023 10:41:01 CMP, serum or plasma [address] (Lab), [address] [place] [address], [place], [address], 12/30/2023 10:41:01 CBC w/ auto diff [address] (Lab), [address] [place] [address], [place], [address], 12/30/2023 10:41:01 TSH + free T4, serum [address] (Lab), [address] [place] [address], [address], 12/30/2023 10:41:01 HbA1c (hemoglob in A1c), blood 2023 024 [facility] (Lab), [address] [place] [address], [address], 10/05/2023 13:01:06 microalbu min, urine [address] (Lab), [address] [place] [address], [address], 12/30/2023 10:41:01 HbA1c (hemoglob in A1c), blood 2022 023 [facility] (Lab), [address] [place] [address], [address], 06/18/2023 12:18:53 microalbu min, urine [address] (Lab), [address] [place] [address], [address], 08/26/2023 09:47:24 lipid panel, serum [address] (Lab), [address] [facility] [address], [place], [address], 08/26/2023 09:47:25 CMP, serum or plasma 2022 023 [facility] (Lab), [address] [facility] [address], [place], [address], 03/16/2023 13:08:26 CBC w/ auto diff [address] (Lab), [address] [facility] [address], [place], [address], 08/26/2023 09:47:25 TSH + free T4, serum [address] (Lab), [address] [facility] [address], [place], [address], 08/26/2023 09:47:25 Referral ENT surgery referral - Please call patient to schedule. 2023 024 ankur Eisenberg PULMONARY SPECIALIST, [address], [place], [address], 06/17/2024 08:50:45 hand surgeon referral - Please call patient to schedule. 2023 024 ankur Bishop MD, [address] [facility] [address], [place], [address], 06/17/2024 08:50:33 nephrolog ist referral - Please call patient to schedule. 2023 024 ankur Perez MD, [address] [facility] [address], [address], [place], [address], 06/17/2024 08:50:57 cardiolog ist referral 2023 024 [email or web address] Yeimi Lynn MD, [address] [facility], [address], [place], [address], 03/18/2024 12:40:44 podiatris t referral - Please call patient to schedule. 2023 024 ankur Singh DPTanika, [address], [place], [address], 06/17/2024 08:49:42 diabetic ophthalmo logy referral - Please call patient to schedule. 2023 024 ankur Stevenson MD, [address] [facility], [address], [place], [address], 06/17/2024 08:50:00 dermatolo gist referral - Please call patient to schedule. 2023 024 [facility], [address] [place], [address], 06/17/2024 08:50:17 ENT surgery referral 2023 024 [email or web address] Surendra Chester, [address], [place], [address], 03/18/2024 14:09:59 hand surgeon referral 2023 024 [email or web address] Tab Goodson MD, [address], [place], [address], 03/18/2024 14:05:06 rheumatol ogist referral 2023 024 [email or web address] Heri Thomas MD, [address], [address], [place], [address], 05/26/2024 08:03:22 cardiolog ist referral 2023 024 [email or web address] Yeimi Lynn MD, [address], [place], [address], 01/23/2024 09:42:38 podiatris t referral 2023 024 [email or web address] Brain Singh DPM, [address] [facility], [address], [place], [address], 05/26/2024 08:03:21 diabetic ophthalmo logy referral 2023 024 [email or web address] Cande Stevenson MD, [address] [facility], [address], [place], [address], 03/18/2024 13:53:32 dermatolo gist referral 2023 024 [email or web address] [facility], [address] [place], [address], 03/18/2024 14:06:21 ENT surgery referral 2023 024 [email or web address] Surendra Chester, [address] [facility], [place], [address], 12/26/2023 14:16:17 hand surgeon referral 2023 024 [email or web address] Tab Goodson MD, [address], [place], [address], 12/26/2023 14:16:16 rheumatol ogist referral 2023 024 [email or web address] Heri Thomas MD, [address] [facility], [address], [place], [address], 04/22/2024 17:38:15 cardiolog ist referral 2023 024 [email or web address] Yeimi Lnyn MD, [address] [facility], [address], [place], [address], 12/26/2023 14:16:15 podiatris t referral 2023 024 [email or web address] Brian Singh DPM, [address] [facility], [place], [address], 04/22/2024 17:38:12 diabetic ophthalmo logy referral 2023 024 [email or web address] Cande Stevenson MD, [address] [facility], [facility] [address], [place], [address], 04/22/2024 17:38:13 dermatolo gist referral 2023 024 [email or web address] [facility], [address] [place], [address], 04/22/2024 17:38:14 hand surgeon referral 2023 024 [email or web address] Tab Goodson MD, [address] [facility] [address], [place], [address], 07/29/2023 10:29:42 pulmonolo gist referral 2023 024 ELVIN Zheng, [address] [facility] [address], [place], [address], 08/08/2023 11:27:04 rheumatol ogist referral 2023 024 [email or web address] [facility] (Rheumatology ), [address] [facility], [place], [address], 12/30/2023 08:38:32 cardiolog ist referral 2023 024 [email or web address] Yeimi Lynn MD, [address] [facility], [address], [place], [address], 07/29/2023 10:27:54 podiatris t referral 2023 024 Brian Singh DPM, [address] [facility], [address], [place], [address], 12/30/2023 08:38:30 diabetic ophthalmo logy referral 2023 024 [email or web address] Cande Stevenson MD, [address] [facility], [facility] [address], [place], [address], 12/30/2023 08:38:31 dermatolo gist referral 2023 024 [email or web address] [facility], [address] [place], [address], 12/30/2023 08:38:31 rheumatol ogist referral 2022 023 [email or web address] [facility] (Rheumatology ), [address] [facility], [place], [address], 10/30/2023 16:56:28 cardiolog ist referral 2022 023 [email or web address] Yeimi Lynn MD, [address] [facility], [address], [place], [address], 05/01/2023 09:25:07 podiatris t referral 2022 023 [email or web address] Brian Singh DPTanika, [address] [facility], [address], [place], [address], 02/24/2024 09:06:33 diabetic ophthalmo logy referral 2022 023 [email or web address] Cande Stevenson MD, [address] [facility], [facility] [address], [place], [address], 02/24/2024 09:06:33 dermatolo gist referral 2022 023 [email or web address] Los Major MD, [address] [place], [address], 02/24/2024 09:06:34 Procedures nerve conductio n study/EMG , upper extremity (PROC) 2022 023 [email or web address] Marcelo Gan MD, [address] [facility], [address], [place], [address], 02/24/2024 09:06:22 Surgeries None recorded. Imaging DEXA [address] (Imaging), [address] [facility] [address], [place], [address], 06/02/2024 08:11:03 MAMMO, screening , digital, bilateral [address] (Imaging), [address] [facility] [address], [place], [address], 05/11/2024 17:55:57 MAMMO, screening , digital, bilateral [address] (Imaging), [address] [facility] [address] [facility], [place], [address], 05/11/2024 17:56:47 MAMMO, screening , digital, bilateral [address] (Imaging), [address] [facility] [address] [place] [address], [address], 07/31/2023 08:40:29 LDCT, chest, for lung cancer screening 2023 024 [facility] (Imaging), [address] [facility] [address] [facility], [place], [address], 10/22/2023 08:35:28 US, thyroid [address] (Imaging), [facility] [facility] [address] [place] [address], [address], 07/31/2023 08:40:29 Medication Orders Farxiga 10 mg tablet 2023 024 [id number], [address] [place] [address], [id number], 10/23/2023 10:19:18 Patient TargetsNo targets recorded. Patient InstructionsNo instructions recorded. Reason for Referral Party Plan Sales Consultant Referral for Type 2 diabetes mellitus without complication Referring Physician: Nolberto Davis, Internal Medicine, Encounter Date: 02/27/2023 Diabetic Ophthalmology Refer ral for Type 2 diabetes mellitus without complication Referring Physician: Nolberto Davis Internal Medicine, Encounter Date: 02/27/2023 Application Trainer Referral for S kin lesion Referring Physician: Mike Eden, Encounter Date: 02/27/2023 Commercial Center Manager Referral for Es sential hypertension Referring Physician: Nolberto Davis Internal Medicine, Encounter Date: 02/27/2023 Subsurface Augmentee Elint Operator Referral for Anti-nuclear factor detected Referring Physician: Mike Eden Medicine, Encounter Date: 02/27/2023 Party Plan Sales Consultant Referral for Type 2 diabetes mellitus without complication Referring Physician: Mike Eden, Encounter Date: 07/01/2023 Diabetic Ophthalmology Refer ral for Type 2 diabetes mellitus without complication Referring Physician: Mike Eden, Encounter Date: 07/01/2023 Application Trainer Referral for S kin lesion Referring Physician: Mike Eden, Encounter Date: 07/01/2023 Commercial Center Manager Referral for Es sential hypertension Referring Physician: Mike Eden, Encounter Date: 07/01/2023 Subsurface Augmentee Elint Operator Referral for Anti-nuclear factor detected Referring Physician: Mike Eden Medicine, Encounter Date: 07/01/2023 Manager Labor Delivery Referral for A sthma Referring Physician: Mike Eden Medicine, Encounter Date: 07/01/2023 Hand Surgeon Referral for Pa in of bilateral hands Referring Physician: Mike Eden, Encounter Date: 07/01/2023 Party Plan Sales Consultant Referral for Type 2 diabetes mellitus without complication Referring Physician: Mike Eden, Encounter Date: 10/23/2023 Diabetic Ophthalmology Refer ral for Type 2 diabetes mellitus without complication Referring Physician: Mike Eden, Encounter Date: 10/23/2023 Application Trainer Referral for S kin lesion Referring Physician: Mike Eden, Encounter Date: 10/23/2023 Commercial Center Manager Referral for Es sential hypertension Referring Physician: Mike Eden, Encounter Date: 10/23/2023 Subsurface Augmentee Elint Operator Referral for Anti-nuclear factor detected Referring Physician: Mike Eden, Encounter Date: 10/23/2023 Hand Surgeon Referral for Pa in of bilateral hands Referring Physician: Mike Eden, Encounter Date: 10/23/2023 ENT Surgery Referral for Thy roid nodule Referring Physician: Mike Eden, Encounter Date: 10/23/2023 Party Plan Sales Consultant Referral for Type 2 diabetes mellitus without complication Referring Physician: Mike Eden, Encounter Date: 11/27/2023 Diabetic Ophthalmology Refer ral for Type 2 diabetes mellitus without complication Referring Physician: Mike Eden, Encounter Date: 11/27/2023 Application Trainer Referral for S kin lesion Referring Physician: Mike Eden, Encounter Date: 11/27/2023 Commercial Center Manager Referral for Es sential hypertension Referring Physician: Mike Eden, Encounter Date: 11/27/2023 Subsurface Augmentee Elint Operator Referral for Anti-nuclear factor detected Referring Physician: Mike Eden, Encounter Date: 11/27/2023 Hand Surgeon Referral for Pa in of bilateral hands Referring Physician: Mike Eden, Encounter Date: 11/27/2023 ENT Surgery Referral for Thy roid nodule Referring Physician: Nolberto Davis Internal Medicine, Encounter Date: 11/27/2023 Party Plan Sales Consultant Referral for Type 2 diabetes mellitus without complication Please call patient to schedule. Referring Physician: Nolberto Davis Internal Medicine, Encounter Date: 03/18/2024 Diabetic Ophthalmology Refer ral for Type 2 diabetes mellitus without complication Please call patient to schedule. Referring Physician: Nolberto Davis Internal Medicine, Encounter Date: 03/18/2024 Application Trainer Referral for S kin lesion Please call patient to schedule. Referring Physician: Nolberto Davis Internal Medicine, Encounter Date: 03/18/2024 Commercial Center Manager Referral for Es sential hypertension Referring Physician: Nolberto Davis Internal Medicine, Encounter Date: 03/18/2024 Hand Surgeon Referral for Pa in of bilateral hands Please call patient to schedule. Referring Physician: Mike Eden Medicine, Encounter Date: 03/18/2024 ENT Surgery Referral for Thy roid nodule Please call patient to schedule. Referring Physician: Nolberto Davis Internal Medicine, Encounter Date: 03/18/2024 Concreter Referral for Ch ronic kidney disease Please call patient to schedule. Referring Physician: Mike Eden Medicine, Encounter Date: 03/18/2024 Results Created Date Observation Date Name Description Value Unit Range Abnormal Flag Note LastModifiedBy Organization Detail LastModifiedTime 04/22/19 24 04/22/2023 home sleep study No observ ation record ed. [facility] [address], [place], [address], 05/21/2023 16:54:50 09/30/19 24 09/27/2023 US, thyro id No observ ation record ed. [facility] [address] [facility] [address], [place], [address], 09/30/2023 08:34:18 09/30/19 24 09/27/2023 US, thyro id No observ ation record ed. [address], [place], [address], 09/30/2023 08:35:11 10/22/19 24 10/22/2023 LDCT, chest , for lung cance r scree liborio No observ ation record ed. [address], [place], [address], 10/22/2023 08:35:28 01/18/2001/18/2024 XR, sacro iliac joint (s) No observ ation record ed. [address] [address], [place], [address], 01/23/2024 16:11:53 01/18/2001/18/2024 XR, hand No observ ation record ed. [address] [address], [place], [address], 01/23/2024 16:12:08 01/18/2001/18/2024 XR, chest , 2 view No observ ation record ed. [address] [facility], [place], [address], 01/23/2024 16:12:22 01/18/2001/18/2024 XR, foot No observ ation record ed. [address] [facility], [place], [address], 01/23/2024 16:12:37 01/18/2001/18/2024 XR, knee No observ ation record ed. [address] [facility], [place], [address], 01/23/2024 16:12:58 01/18/20 24 01/18/2024 XR, hip, bilat eral No observ ation record ed. [address], [place], [address], 01/23/2024 16:14:44 01/18/20 24 01/18/2024 XR, lumba r spine No observ ation record ed. [address], [place], [address], 01/23/2024 16:15:28 01/29/20 24 01/29/2024 MAMMO , scree liborio, digit al, bilat eral No observ ation record ed. [email or web address] [facility] (Imaging) [address] [facility] [address], [place], [address], 06/02/2024 08:09:40 06/12/19 25 06/12/2024 imagi ng/di agnos tic resul t No observ ation record ed. [facility] [address], [place], [address], 06/12/2024 14:48:32 Result Notes None recorded. Problems Name Problem SNOMED Code Status Onset Date Resolution Date Notes Provider Name and Address Organization Details Recorded Time Anti-nucle ar factor detected 297091161 Active 2022 Not Available [facility] 3 16:11:45 Vitamin D deficiency 82321076 Active 2022 Not Available [facility] 3 16:11:45 Hypothyroi dism 57827913 Active 2022 Not Available [facility] 3 16:11:45 Hyperlipid emia 13930491 Active 2022 Not Available [facility] 3 16:11:45 Liver enzymes level above reference range 209053864 Active 2022 Not Available [facility] 3 16:11:45 Hyperglyce chon 41765199 Active 2022 Not Available [facility] 3 16:11:46 Type 2 diabetes mellitus without complicati on 245965852 Active 2022 Nolberto lazo MD [address], [place], [address] , [facility] [employer] [facility] 3 16:52:47 Asthma 504140081 Active 2022 Nolberto lazo MD [address], [place], [address] , [facility] [employer] [facility] 3 16:53:13 Moderate recurrent major depression 33870711 Active 2022 Nolberto lazo MD [address], [place], [address] , [facility] 3 16:53:18 Chronic kidney disease 150291113 Active 2022 Nolberto lazo MD [address], [place], [address] , [facility] [employer] [facility] 3 16:53:21 Essential hypertensi on 34547775 Active 2022 Nolberto lazo MD [address], [place], [address] , [facility] [employer] [facility] 3 16:54:02 Low back pain 839350381 Active 2022 Nolberto lazo MD [address], [place], [address] , [facility] [employer] [facility] 3 16:54:34 Non-alcoho lic fatty liver 303124221 Active 2022 Kerline armstrong, [facility] 3 10:51:05 Skin lesion 80092580 Active 2022 Nolberto lazo MD [address], [place], [address] , [facility] [employer] [facility] 3 17:24:18 Pain of bilateral hands 1372259813701 9109 Active 2022 Nolberto lazo MD [address], [place], [address] , [facility] 3 17:25:10 Gastroesop hageal reflux disease without esophagiti s 288482697 Active 2022 Kerline Campa null, [facility] 3 12:41:57 Prediabete s 962315555 Active 2022 Karina Pena MD [address], [place], [address] , [facility] 3 20:12:10 Thyroid nodule 551752529 Active 2023 Nolberto lazo MD [address], [place], [address] , [facility] 4 10:17:49 COVID-19 955276945 Active 2023 Tatiana Bush MA null, [facility] 4 15:30:43 Problem Notes None recorded. Procedures Surgical History Date Name Laterality Status Provider Name and Address Organization Details Recorded Time Cholecystectomy completed Niki bolden, [facility] 08/16/2022 10:15:58 Hysterectomy, Partial completed Elena Castillo [facility] 02/27/2023 15:54:25 Imaging Results Imaging Date Name Status LastModified by Organiz atcritical access hospital Details LastModified Time 04/22/2023 home sleep study active [email or web address] [facility] [address], [place], [address], 05/21/2023 16:54:50 09/27/2023 US, thyroid active [address] [place] [address], [address], 09/30/2023 08:34:18 09/27/2023 US, thyroid active [address], [place], [address], 09/30/2023 08:35:11 10/22/2023 LDCT, chest, for lung cancer screening active [address] [facility], [place], [address], 10/22/2023 08:35:28 01/18/2024 XR, sacroiliac joint(s) completed [address] [facility], [place], [address], 01/23/2024 16:11:53 01/18/2024 XR, hand completed [address] [facility] [place], [address], 01/23/2024 16:12:08 01/18/2024 XR, chest, 2 view completed [address] [address], [place], [address], 01/23/2024 16:12:22 01/18/2024 XR, foot completed [address] [address], [place], [address], 01/23/2024 16:12:37 01/18/2024 XR, knee completed [address] [facility], [place], [address], 01/23/2024 16:12:58 01/18/2024 XR, hip, bilateral completed [address] [place] [address], [address], 01/23/2024 16:14:44 01/18/2024 XR, lumbar spine completed [address], [address], 01/23/2024 16:15:28 01/29/2024 MAMMO, screening, digital, bilateral active [address] (Imaging) [address] [place] [address] [place] [address], [address], 06/02/2024 08:09:40 06/12/2024 imaging/diagnos tic result active [facility] [address], [place], [address], 06/12/2024 14:48:32 Procedure Notes None recorded. Medical Equipment None Reported. Allergies Allergen ID Allergen Name Allergen Category Reaction Reaction Severity Criticality Documentation Date Start Date Code Code System Note Provider Name and Address Organization Details Recorded Time 97017 wheat gluten extract food Not available Not available Not available 02/27/2023 09874 81 [facility] CARMEL [place], [place] - [place] [employer] 15:54:38 No known drug allergies Medications Name Sig Start Date Stop Date Status Note LastModified by Organization Details LastModified Time celecoxib 200 mg capsule TAKE 1 CAPSULE BY MOUTH DAILY NEEDED FOR PAIN 04/18 completed Not Available Not Available Not Available cyclobenz aprine 10 mg tablet TAKE 1 TABLET BY MOUTH THREE TIMES DAILY NEEDED FOR MUSCLE SPASM active Not Available Not Available No t Available triamcino lone acetonide 0.5 % topical cream APPLY TOPICALL Y TWICE DAILY TO RASH ON ELBOWS FOR UP TO 2 WEEKS AT A TIME FOR ECZEMA active Not Available Not Available No t Available azithromy huber 250 mg tablet 06/14 completed Not Available Not Available Not Available benzonata te 200 mg capsule 06/14 completed Not Available Not Available Not Available metoprolo l succinate ER 50 mg tablet,ex tended release 24 hr TK 1 T PO QD DIRECTED 04/18 completed Not Available Not Available Not Available prednison e 20 mg tablet TAKE 2 TABLETS BY MOUTH EVERY MORNING. DO NOT TAKE NSAIDS WITH THE PREDNISO NE 04/18 completed Not Available Not Available Not Available metoprolo l succinate ER 100 mg tablet,ex tended release 24 hr TAKE 1 TABLET BY MOUTH DAILY active Not Available Not Available No t Available amlodipin e 2.5 mg tablet TAKE 1 TABLET BY MOUTH DAILY active Not Available Not Available No t Available potassium chloride ER 10 mEq tablet,ex tended release Take 1 tablet every day by oral route. 10/31 completed duplicat e Not Available Not Available Not Available butalbita l-acetami nophen-ca ffeine 50 mg-325 mg-40 mg tablet TK 1 T PO QID PRF RODGERS 04/18 completed Not Available Not Available Not Available dexametha sone 1 mg tablet take dexa tablet at 10 pm night before 8 am cortisol 10/31 completed Not Available Not Available Not Available amitripty line 10 mg tablet TAKE 1 TABLET BY MOUTH AT BEDTIME FOR MIGRAINE active Not Available Not Available No t Available Unithroid 50 mcg tablet TAKE 1 TABLET BY MOUTH EVERY DAY IN THE MORNING 10/31 completed Not Available Not Available Not Available Katarina-D 12 Hour 60 mg-120 mg tablet,ex tended release TAKE 1 TABLET BY MOUTH EVERY 12 HOURS NEEDED FOR ALLERGY SYMPTOMS active Not Available Not Available No t Available omeprazol e 20 mg capsule,d elayed release TAKE 1 CAPSULE BY MOUTH DAILY 2024 active Not Available Not Available Not Avai lable monteluka st 10 mg tablet TAKE 1 TABLET BY MOUTH EVERY NIGHT AT BEDTIME active Not Available Not Available No t Available magnesium 250 mg tablet Take 1 tablet twice a day by oral route. active Not Available Not Available No t Available hydrochlo rothiazid e 25 mg tablet TAKE 1 TABLET BY MOUTH DAILY 06/27 completed Not Available Not Available Not Available furosemid e 20 mg tablet Take 1 tablet every day by oral route for 90 days. active Not Available Not Available No t Available albuterol sulfate HFA 90 mcg/actua tion aerosol inhaler INHALE 1 TO 2 PUFFS BY MOUTH EVERY 4 TO 6 HOURS NEEDED FOR SHORTNES S OF BREATH OR WHEEZING active Not Available Not Available No t Available Unithroid 75 mcg tablet Take 1 tablet every day by oral route in the morning for 90 days. active Not Available Not Available No t Available Vitamin D2 1,250 mcg (50,000 unit) capsule active Not Available Not Available Not Available metformin ER 500 mg tablet,ex tended release 24 hr TAKE 1 TABLET BY MOUTH EVERY DAY AT DINNER 01/15 completed Not Available Not Available Not Available calcitrio l 0.25 mcg capsule Take 1 capsule twice a day by oral route for 90 days. active Not Available Not Available No t Available irbesarta n 300 mg tablet TAKE 1 TABLET BY MOUTH DAILY active Not Available Not Available No t Available rosuvasta tin 40 mg tablet TAKE 1 TABLET BY MOUTH DAILY active Not Available Not Available No t Available potassium chloride ER 10 mEq tablet,ex tended release(p art/cryst ) TAKE 1 TABLET BY MOUTH DAILY active Not Available Not Available No t Available bupropion HCl XL 150 mg 24 hr tablet, extended release TK 1 T PO QAM FOR DEPRESSI ON 04/18 completed Not Available Not Available Not Available duloxetin e 30 mg capsule,d elayed release take 1 qd x 2 wks, then 1 every other day for 2 wks 10/22 completed Not Available Not Available Not Available duloxetin e 60 mg capsule,d elayed release TAKE 1 CAPSULE BY MOUTH DAILY 2023 active Not Available Not Available Not Avai lable Katarina-D 24 Hour 180 mg-240 mg tablet,ex tended release TK 1 T PO ONCE DAILY PRN FOR ALLERGIE S 04/18 completed Not Available Not Available Not Available calcium 10/22 completed Not Available Not Available Not Available Symbicort 160 mcg-4.5 mcg/actua tion HFA aerosol inhaler INHALE 2 PUFFS BY MOUTH EVERY 12 HOURS. RINSE MOUTH AND SPIT AFTER EACH USE active Not Available Not Available No t Available Farxiga 10 mg tablet TAKE 1 TABLET BY MOUTH DAILY active Not Available Not Available No t Available Anoro Ellipta 62.5 mcg-25 mcg/actua tion powder for inhalatio n INHALE 1 PUFF BY MOUTH EVERY DAY 10/31 completed Not Available Not Available Not Available Mounjaro 5 mg/0.5 mL subcutane ous pen injector ADMINIST ER 5 MG UNDER THE SKIN EVERY WEEK 2024 active Not Available Not Available Not Su lable Mounjaro 2.5 mg/0.5 mL subcutane ous pen injector ADMINIST ER 2.5 MG UNDER THE SKIN EVERY WEEK 01/22 completed Not Available Not Available Not Available Lagevrio 200 mg capsule (EUA) TAKE 4 CAPSULES BY MOUTH EVERY 12 HOURS FOR 5 DAYS 03/18 completed Not Available Not Available Not Available Ozempic 0.25 mg or 0.5 mg (2 mg/3 mL) subcutane ous pen injector INJECT 0.5MG UNDER THE SKIN ONCE A WEEK 11/26 completed Not Available Not Available Not Available Vitals Date Recorded Body height Body mass index (BMI) Body weight Heart rate Body temperature Systolic blood pressure Diastolic blood pressure Provider Name and Address Organization Details Last Updated DateTime 3 162.56 cm 40.7 kg/m2 915648. 39 g 72 /min 97.2 [degF] 122 mm[Hg] 64 mm[Hg] Elena Castillo BRIANColette [facility] [employer] [facility] 3 15:57:04 Date Recorded Body height Body mass index (BMI) Body weight Heart rate Oxygen saturation Oxygen saturation in Arterial blood by Pulse oximetry Systolic blood pressure Diastolic blood pressure Provider Name and Address Organization Details Last Updated DateTime 4 162.56 cm 40.3 kg/m2 979969. 21 g 72 /min 98 % 98 % 110 mm[Hg] 80 mm[Hg] Rossi Topete Colette [facility] [employer] [facility] 4 09:41:08 Date Recorded Body height Body mass index (BMI) Body weight Body temperature Heart rate Systolic blood pressure Diastolic blood pressure Provider Name and Address Organization Details Last Updated DateTime 4 162.56 cm 41 kg/m2 925035. 58 g 97.2 [degF] 72 /min 116 mm[Hg] 64 mm[Hg] Elena Castillo Colette [facility] [employer] [facility] 4 10:02:27 Date Recorded Body height Body mass index (BMI) Body weight Body temperature Heart rate Systolic blood pressure Diastolic blood pressure Provider Name and Address Organization Details Last Updated DateTime 4 162.56 cm 41.2 kg/m2 190723. 17 g 97.2 [degF] 72 /min 120 mm[Hg] 80 mm[Hg] Elena Castillo [facility] [employer] [facility] 4 09:39:04 Date Recorded Body height Body mass index (BMI) Body weight Body temperature Heart rate Systolic blood pressure Diastolic blood pressure Provider Name and Address Organization Details Last Updated DateTime 4 162.56 cm 39.3 kg/m2 281468. 65 g 97.2 [degF] 76 /min 122 mm[Hg] 65 mm[Hg] Elena Castillo BRIANColette [facility] [employer] [facility] 4 09:59:44 Social History Question Answer Notes LastModified by Organizat ion Details LastModified Time Tobacco Smoking Status Former Smoker Not Available [employer] 06/13/2022 16:10:54 What Is Your Level Of Alcohol Consumption? None [id number] Information not available 06/13/2022 What Is Your Level Of Caffeine Consumption? Heavy MIGRATION.73553 71382 Information not available 06/13/2022 In The 14 Days Before Symptom Onset, Have You Had Close Contact With A Laboratory-confi rmed COVID-19 While That Case Was Ill? No MIGRATION.84410 [id number] Information not available 06/13/2022 In The 14 Days Before Symptom Onset, Have You Had Close Contact With A Person Who Is Under Investigation For COVID-19 While That Person Was Ill? No MIGRATION.98647 33776 Information not available 06/13/2022 What Type Of Diet Are You Following? REGULAR MIGRATION.35765 69881 Information not available 06/13/2022 What Is The Highest Grade Or Level Of School You Have Completed Or The Highest Degree You Have Received? [id number] MIGRATION.37856 42268 Information not available 06/13/2022 What Is Your Occupation? [employer] MIGRATION.66190 52492 Information not available 06/13/2022 Have There Been Any Changes To Your Family Or Social Situation? No MIGRATION.53665 53822 Information not available 06/13/2022 What Is The Fluoride Status Of Your Home? Unknown MIGRATION.18560 53718 Information not available 06/13/2022 When Did You Quit Smoking? 6-10yearssincelastc igarette MIGRATION.10448 60965 Information not available 06/13/2022 Are There Any Guns Present In Your Home? Yes MIGRATION.37416 83910 Information not available 06/13/2022 Do You Use Insect Repellent Routinely? No MIGRATION.89957 88567 Information not available 06/13/2022 Where Do You Live? [place]LevelHouse MIGRATION.24345 62780 Information not available 06/13/2022 What Was The Date Of Your Most Recent Tobacco Screening? 03/18/2024 Information not available 03/18/2024 Do You Have Any Pets? Yes MIGRATION.43562 42104 Information not available 06/13/2022 What Is Your Relationship Status? MIGRATION.05498 40519 Information not available 06/13/2022 Do You Have Smoke And Carbon Monoxide Detectors In Your Home? Yes MIGRATION.16914 19815 Information not available 06/13/2022 Are You Passively Exposed To Smoke? No MIGRATION.95306 84358 Information not available 06/13/2022 Are There Any Smokers In Your House? No MIGRATION.49182 75046 Information not available 06/13/2022 Do You Feel Stressed (tense, Restless, Nervous, Or Anxious, Or Unable To Sleep At Night)? [id number] MIGRATION.02497 49426 Information not available 06/13/2022 Do You Use Sunscreen Routinely? Yes MIGRATION.91352 60094 Information not available 06/13/2022 Has Tobacco Cessation Counseling Been Provided? No Information not available 10/31/2022 Have You Recently Traveled Abroad? No MIGRATION.28940 76484 Information not available 06/13/2022 Do You Have Any Dietary Restrictions? No MIGRATION.44916 52229 Information not available 06/13/2022 Do You Or Have You Ever Used Any Other Forms Of Tobacco Or Nicotine? No MIGRATION.97375 52423 Information not available 06/13/2022 Sex: Unknown Functional Status Question Answer Note LastModified by [employer] ion Details LastModified Time What is your exercise level? None [id number] Information not available 06/13/2022 Mental Status None recorded. Family History Relationship Description Onset Age of this Age Resolved Age Notes LastModified by Organization Details LastModified Time Mother Diabetes mellitus [id number] [id number] Not available 06/13/2022 16:10:59 Mother Hypertensive disorder MIGRATION.288 [id number] Not available 06/13/2022 16:10:59 Mother Malignant tumor of breast MIGRATION.386 [id number] Not available 06/13/2022 16:10:59 Father Diabetes mellitus MIGRATION.116 [id number] Not available 06/13/2022 16:10:59 Father Hypertensive disorder MIGRATION.681 [id number] Not available 06/13/2022 16:10:59 Sister Malignant tumor of cervix MIGRATION.156 [id number] Not available 06/13/2022 16:10:59 Medical History Condition Response THYROID DISEASE Y ARTHRITIS Y DIZZINESS Y DIABETES, TYPE Y KIDNEY DISEASE Y LIVER DISEASE Y INSOMNIA Y HYPERTENSION Y HIGH CHOLESTEROL / HYPERLIPIDEMIA Y OBESITY Y EDEMA Y SURGERY Y GERD/NAUSEA Y EXCESSIVE PERSPIRATION Y HYPOTHYROIDISM Y AUTOIMMUNE DISEASE Y DEPRESSION (INCLUDING POST ) Y Gynecological HistoryNo gynecological history recorded. Obstetrics History GPAL:G 0 P 0 0 0 0 Immunizations Vaccine Type Date Status Note Provider Nam e and Address Organization Details Recorded Time Influenza, MDCK, quadrivalent, preservative 3 completed Elena Castillo RMA patti, [facility] 02/27/2023 16:03:19 Pneumococcal conjugate PCV20, polysaccharide XPB309 conjugate, adjuvant, PF 3 completed Elena Castillo RMA patti, [facility] 02/27/2023 16:03:34 COVID-19, mRNA, LNP-S, PF, 50 mcg/0.5 mL 3 completed Elena Castillo RMA patti, [facility] 02/27/2023 16:03:51 COVID-19, mRNA, LNP-S, PF, 30 mcg/0.3 mL dose 1 completed SILAS Rosen, [facility] 10/16/2023 14:09:01 COVID-19, mRNA, LNP-S, PF, 30 mcg/0.3 mL dose, salo-sucrose 2 completed Pedro Pearce LPN patti, [facility] 10/16/2023 14:09:01 COVID-19, mRNA, LNP-S, bivalent, PF, 50 mcg/0.5 mL or 25mcg/0.25 mL dose 2 completed Pedro Pearce LPN patti, [facility] 10/16/2023 14:09:01 Influenza, split virus, trivalent, preservative 2 completed Pedro Pearce LPN patti, [facility] 10/16/2023 14:09:01 Influenza, split virus, trivalent, PF 4 completed Nolberto Davis MD [address] [place] [address], [address] [address], [place], [address], [facility] 03/18/2024 14:06:57 COVID-19 mRNA, bivalent, original/Omicron BA.1, Non-US Vaccine (Spikevax Bivalent), Moderna 2 completed Not Available [facility] 06/13/2022 16:12:38 COVID-19 mRNA, bivalent, original/Omicron BA.1, Non-US Vaccine Product, Medify 2 completed Not Available [facility] 06/13/2022 16:12:38 COVID-19, mRNA, LNP-S, PF, 30 mcg/0.3 mL dose 1 completed SILAS Rosen, [facility] 10/16/2023 14:09:01 COVID-19, mRNA, LNP-S, PF, 30 mcg/0.3 mL dose 0 completed SILAS Rosen, [employer] 10/16/2023 14:09:01 Tdap 3 completed Not Available [facility] 06/13/2022 16:12:39 Past Encounters Encounter ID Performer Location Encounter Start Date Encounter Closed Date Diagnosis/Indication Diagnosis SNOMED-CT Code Diagnosis ICD10 Code Diagnosis Note [id number] [facility] Internal Med [address] [place] [address] 04/18/2022 00:00:00 05/09/2022 13:36:10 [id number] Nolberto lazo MD [facility] Internal [facility] [address] [place] [address] [place] [address] 06/27/2022 16:22:32 06/27/2022 17:15:14 Screening - NAD 837383077 Z13.9 C-scope: Get the report, had this with Dr Yuan, she will get the report Mammogram: 03/28/2021 : Neg, ordered 04/18/2022 DEXA: Get this PAP: Refer to OB Get yearly flu shotGet tdap if not doneGet COVID 19 vaccine and its boosters RTC in 3 months, do labs, ER if worse, she and her did verbalize her understand ing of the above Screening mammography 24 965149 Z12.31 Screening for osteoporosis 112156739 Z13.820 Type 2 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 527514597 E11.9 On farxigaGet labs Ex-smoker 5084913 Z87.[address] Nova: 08/29/2021 : Cat2 next in one year Asthma 155507216 J45.90 9 On proairOn anoroDoes well Moderate r ecurrent major depression 09768999 F33.1 Not suicidal or homicidalO n duloxetine 60mg dailyOn amitriptyl ine 10mg 2 tabs at bedtimeDoe s well on these medication s Chronic ki dney disease 340819174 N18.[address] Mosley vit d weeklyIs now to see Dr Earl referred by Dr Surjit MACIAS Essential hypertension 23433120 I10 On amlodipine 2.5mg dailyOn HCTZ 25mg dailyOn ibesartan 300mg dailyOn metoprolol ER 100mg dailyOn K Er 10meq daily Get labs Low back pain 148472236 M54.50 On flexerillI s to see Dr Sonya Nelson for a +ve JOSE JUAN test Hyperlipidemia 83180937 E78.5 On rosuvastat in 40mg dailyGet labs [id number] Karina Pena MD [facility] [address] [place] [address] 08/16/2022 09:35:44 08/16/2022 10:46:27 Hypothyroidism 75600621 E03.9 FT4 low with heterogene ous gland /bilateral nodules- too small to biopsy- will trial on unithroid 50 mcg daily as patient has multiple hypothyroi d symptoms. Repeat thyroid panel in 6-8 weeks to assess response to medication . She was reminded to take her unithroid on empty stomach with glass of water and wait one hour to eat or have her coffee in morning and up to 4 hours if ever taking any heartburn or reflux medication s to help optimize absorption . Discussed paleo like diet with restrictio n of GMOs to help with energy and to optimize absorption of vitamins and minerals and reduce inflammati on. Essential hypertension 76579094 I10 Patient is on multiple medication s for blood pressure control. Would recommend he undergo a simple fasting blood test to screen for primary hyperaldos teronism and if found to be positive we could plan to transition to an aldosteron e bean and wean off multiple medication s. Patient was provided lab order to obtain fasting before 9 am. Will send for low dose dexa suppressio n testing to screen for hypercorti solic state. Spent up to 45 minutes preparing to see the patient (eg, review of tests), obtaining and/or reviewing separately obtained history, performing a medically appropriat e examinatio n and evaluation , counseling and educating the patient, ordering medication s, tests, along with documentin g clinical informatio n in the electronic health record, independen tly interpreti ng results and communicat ing results to the patient. RTC in 3-4 months. Patient was provided a handwritte n lab order which contains our fax number. If she chooses to go outside of the [facility] system to obtain labwork she was advised to provide our fax number and my informatio n to the lab she will be obtaining labwork from in order to have her labs properly forwarded over for me to review so there is no loss of follow up due to use of outside network. She was also advised to contact our clinic informing us that she has completed her labwork so we are aware we will need to reach out to the appropriat e laboratory to request her results be forwarded to us so I might have the ability to review and make further medical decision making in her case. She voiced understand ing. Thank you for this consultati on. [id number] Nolberto lazo MD [facility] Med [place] [address] [address] [facility] [place] [address] 10/31/2022 16:20:28 10/31/2022 17:26:21 Screening - NAD [id number] Z13.9 C-scope: Get the report, had this with Dr Yuan, she will get the report Mammogram: 03/28/2021 : Neg, ordered 04/18/2022 Mammogram: 07/05/2022 : Neg DEXA: Low bone mass, can do danny and vit D PAP: Refer to OB Get yearly flu shotGet tdap if not doneGet COVID 19 vaccine and its boosters RTC in 3 months, do labs, ER if worse, she and her did verbalize her understand ing of the above Type 2 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 939558320 E11.9 On Viewbix Ex-smoker 1999613 Z87.[address] Nova: 08/29/2021 : Cat2 next in one yearLDCT 10/20/2022 Asthma 928988931 J45.90 9 On proairOn singulair 10mg dailyNot on anoroDoes well Moderate r ecurrent major depression 81375634 F33.1 Not suicidal or homicidalO n duloxetine 60mg dailyOn amitriptyl ine 10mg 2 tabs at bedtimeDoe s well on these medication s Chronic ki dney disease 757595490 N18.[address] Mosley vit d weeklyIs now to see Dr Earl referred by Dr Surjit MACIAS Essential hypertension 98843583 I10 On amlodipine 2.5mg dailyOn lasix 20mg dailyOn magOn HCTZ 25mg dailyOn ibesartan 300mg dailyOn metoprolol ER 100mg dailyOn K Er 10meq daily Get labsSeen Dr Pena Low back pain 002628248 M54.50 On flexerillI s to see Dr Sonya Nelson for a +ve JOSE JUAN test Hyperlipidemia 99216328 E78.5 On rosuvastat in 40mg dailyGet labs Hypothyroidism 34891632 E03.9 US thyroid 06/04/2022 : Next in one year, one nodule is 9mm, can see ENT to see if this needs biopsy On unithyroid 75mcgs dailyDr Pena 08/16/2022 , next 01/15/2023 Skin lesion 91140487 L98 .9 Small flat dark lesion noted on the posterior mid lower leg and also red raised bump noted on the natalie elbowsRefe r to dermatolog y Pain of bi lateral hands [id number] 0654169 M79.641 M79.642 Get a referral to get EMG/NCV done+ve Phalens and Tinels L>R [id number] Karina Pena MD [facility] [address] [place] [address] 01/15/2023 14:36:16 01/15/2023 15:20:18 Hypothyroidism 13513001 E03.9 FT4 now in ideal range- continue on unithroid 75 mcg daily. She was reminded to take her unithroid on empty stomach with glass of water and wait one hour to eat or have her coffee in morning and up to 4 hours if ever taking any heartburn or reflux medication s to help optimize absorption . Discussed paleo like diet with restrictio n of GMOs to help with energy and to optimize absorption of vitamins and minerals and reduce inflammati on. Prediabetes 673335226 R7 3.03 A1C of 6.1%- she has CKD so not recommende d to go on metformin at this time. Agree with farxiga as it has benefits on overall renovascul ar protection . Recommende d she adhere to at least 1200 calorie per day intake with multiple small 300-400 calorie meals (4-5 small meals per day) on sedentary days up to 1600 calories on days she is able to undergo moderate level activity at least 30-40 minutes with 20 minutes of that time at 70% of her target heart rate in order to reach total caloric output and assist in weight loss. She is motivated and willing to go to gym daily and discussed cutting out GMOs along with preservati ves and focusing on fruits, veggies, unprocesse d beans and nuts along with meats for the bulk of her diet. Recommende d she incorporat e natural insulin double end tenon operator s such as pears, apples, cinnamon, mariam and sweet potatoes to help mobilize her endogenous insulin. Recommende d up to 150 minutes of moderate level activity/e xercise weekly. Spent up to 25 minutes preparing to see the patient (eg, review of tests), obtaining and/or reviewing separately obtained history, performing a medically appropriat e examinatio n and evaluation , counseling and educating the patient, ordering medication s, tests, along with documentin g clinical informatio n in the electronic health record, independen tly interpreti ng results and communicat ing results to the patient. Patient can be followed by PCP - she/he is aware of my resignatio n and last day of January 25. If needed his/her PCP can refer patient to another endocrinol ogist in the area. All questions /concerns answered and refills necessary at visit today. [id number] Nolberto lazo MD S[facility] [place] [address] [facility] [place] [address] 02/27/2023 15:39:12 02/27/2023 16:21:57 Screening - NAD [id number] Z13.9 C-scope: Get the report, had this with Dr Yuan, she will get the report Mammogram: 03/28/2021 : Neg, ordered 04/18/2022 Mammogram: 07/05/2022 : Neg DEXA: Low bone mass, can do danny and vit D PAP: Refer to OB Get yearly flu shotGet tdap if not doneGet COVID 19 vaccine and its boosters RTC in 3 months, do labs, ER if worse, she and her did verbalize her understand ing of the above Type 2 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 787634408 E11.9 On farxigaGet Regina Pena 01/15/2023 Ex-smoker 0546293 Z87.[address] Nova: 08/29/2021 : Cat2 next in one yearLDCT 10/20/2022 Asthma 629465095 J45.90 9 On proairOn singulair 10mg dailyNot on anoroDoes well Moderate r ecurrent major depression 00771738 F33.1 Not suicidal or homicidalO n duloxetine 60mg dailyOn amitriptyl ine 10mg 2 tabs at bedtimeDoe s well on these medication s Chronic ki dney disease 424311986 N18.[address] Mosley vit d weeklyOn calcitriol Is now to see Dr Earl referred by Dr Durán IJ Essential hypertension 28014396 I10 On amlodipine 2.5mg dailyOn lasix 20mg dailyOn magNot on HCTZ 25mg dailyOn ibesartan 300mg dailyOn metoprolol ER 100mg dailyOn K Er 10meq daily Get labsSeen Dr Lorene Lynn [facility] 12/28/2022 , f/u in one month Low back pain 709556996 M54.50 On flexerillI s to see Dr Sonya Nelson for a +ve JOSE JUAN test Hyperlipidemia 38112400 E78.5 On rosuvastat in 40mg dailyGet labs Hypothyroidism 88001210 E03.9 US thyroid 06/04/2022 : Next in one year, one nodule is 9mm, can see ENT to see if this needs biopsy On unithyroid 75mcgs dailyDr Jean 08/16/2022 , 01/15/2023 Skin lesion 46100763 L98 .9 Small flat dark lesion noted on the posterior mid lower leg and also red raised bump noted on the natalie elbowsRefe r to dermatolog y Pain of bi lateral hands [id number] 7420318 M79.641 M79.642 Get a referral to get EMG/NCV done+ve Phalens and Tinels L>R Anti-nucle ar factor detected 122082005 R76.[address] Nelson will now get a second opinion with [facility] [id number] Nolberto lazo MD S[facility] [place] [address] [place] [address] 07/01/2023 09:32:35 07/01/2023 10:17:34 Screening - NAD [id number] Z13.9 C-scope: Get the report, had this with Dr Yuan, she will get the report Mammogram: 03/28/2021 : Neg, ordered 04/18/2022 Mammogram: 07/05/2022 : Neg DEXA: Low bone mass, can do danny and vit D PAP: Refer to OB Get yearly flu shotGet tdap if not doneGet COVID 19 vaccine and its boostersge t shinrix vaccine RTC in 3 months, do labs, ER if worse, she and her did verbalize her understand ing of the above Type 2 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 090065638 E11.9 On farxiga 10mg dailyGet labsDr Wood 01/15/2023 Ex-smoker 2545526 Z87.[address] Nova: 08/29/2021 : Cat2 next in one yearLDCT 10/20/2022 Asthma 810011860 J45.90 9 On proairOn singulair 10mg dailyNot on anoroDoes well Moderate r ecurrent major depression 67996527 F33.1 Not suicidal or homicidalO n duloxetine 60mg dailyOn amitriptyl ine 10mg 2 tabs at bedtimeDoe s well on these medication sDeclined any psychiatry referrals Chronic ki dney disease 034773850 N18.[address] Mosley vit d weeklyOn calcitriol Is now to see Dr Earl referred by Dr Durán IJ Essential hypertension 34402499 I10 On amlodipine 2.5mg dailyOn lasix 20mg dailyOn magNot on HCTZ 25mg dailyOn ibesartan 300mg dailyOn metoprolol ER 100mg dailyOn K Er 10meq daily Get labsSeen Dr Lorene Lynn [facility] 12/28/2022 , f/u in one monthDr Lynn 03/29/2023 Sleep study 04/22/2023 : Neg Low back pain 150647753 M54.50 On flexerillI s to see Dr Sonya Nelson for a +ve JOSE JUAN test Hyperlipidemia 01438980 E78.5 On rosuvastat in 40mg dailyGet labs Hypothyroidism 04602029 E03.9 US thyroid 06/04/2022 : Next in one year, one nodule is 9mm, can see ENT to see if this needs biopsy On unithyroid 75mcgs Anthony Pena 08/16/2022 , 01/15/2023 Skin lesion 98650185 L98 .9 Small flat dark lesion noted on the posterior mid lower leg and also red raised bump noted on the natalie elbowsRefe r to dermatolog y Pain of bi lateral hands [id number] 4232865 M79.641 M79.642 Get a referral to get EMG/NCV done+ve Phalens and Tinels L>R, but she has refused to have the EMG see case 04/10/[address] Goodson ortho now 07/01/2023 Anti-nucle ar factor detected 736654937 R76.[address] Nelson will now get a second opinion with [facility] Screening mammography 24 710325 Z12.31 [id number] Nolberto lazo MD [facility] [place] [address] [place] [address] 10/23/2023 09:49:31 10/23/2023 10:20:18 Screening - NAD 185206437 Z13.9 C-scope: Get the report, had this with Dr Yuan, she will get the report Mammogram: 03/28/2021 : Neg, ordered 04/18/2022 Mammogram: 07/05/2022 : Neg DEXA: Low bone mass, can do danny and vit D PAP: Refer to OB Get yearly flu shotGet tdap if not doneGet COVID 19 vaccine and its boostersGe t Shingrix vaccine RTC in 3 months, do labs, ER if worse, she and her did verbalize her understand ing of the above Type 2 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 683498876 E11.9 On farxiga 10mg dailyOn ozempicGet labsDr Jean 01/15/2023 Ex-smoker 4431996 Z87.[address] Nova: 08/29/2021 : Cat2 next in one yearLDCT 10/20/2022 LDCT 10/22/2023 Asthma 558402276 J45.90 9 On proair given by Surendra Small NPOn singulair 10mg dailyOn Symbicort Surendra Small [employer] pulmonary 08/08/2023 , f/u in 3-4 monthsNot on anoroDoes well Moderate r ecurrent major depression 00293181 F33.1 Not suicidal or homicidalO n duloxetine 60mg dailyOn amitriptyl ine 10mg 2 tabs at bedtimeDoe s well on these medication sDeclined any psychiatry referrals Chronic ki dney disease 325432983 N18.[address] Mosley vit d weeklyOn calcitriol Is now to see Dr Earl referred by Dr Durán IJ Essential hypertension 07996837 I10 On amlodipine 2.5mg dailyOn lasix 20mg dailyOn magNot on HCTZ 25mg dailyOn ibesartan 300mg dailyOn metoprolol ER 100mg dailyOn K ER 10meq daily Get labsSeen Dr Lorene Lynn [facility] 12/28/2022 , f/u in one monthDr Lynn 03/29/2023 Sleep study 04/22/2023 : Neg Low back pain 415491890 M54.50 On flexerillD id see Dr Sonya Nelson for a +ve JOSE JUAN test Hyperlipidemia 19604075 E78.5 On rosuvastat in 40mg dailyGet labs Hypothyroidism 55184055 E03.9 US thyroid 06/04/2022 : Next in one year, one nodule is 9mm, can see ENT to see if this needs biopsy On unithyroid 75mcgs dailyDr Jean 08/16/2022 , 01/15/2023 US thyroid 09/27/2023 : Small thyroid nodules, next in one yearReferr ed to ENT Skin lesion 37504239 L98 .9 Small flat dark lesion noted on the posterior mid lower leg and also red raised bump noted on the natalie elbowsKeep apts with dermatolog y Pain of bi lateral hands 0215907850 5008873 M79.641 M79.642 Get a referral to get EMG/NCV done+ve Phalens and Tinels L>R, but she has refused to have the EMG see case 04/10/[address] Goodson ortho now 07/01/2023 Anti-nucle ar factor detected 846449850 R76.[address] Nelson who has left the [facility] did not contact herWill now refer to Dr Thomas Screening mammography 24 058857 Z12.31 Thyroid nodule 577240106 E04.1 thyroid 09/27/2023 : Small thyroid nodules, next in one yearReferr ed to ENT [id number] Nolberto lazo MD [facility] [place] [address] [facility] [place] [address] 11/27/2023 09:33:52 11/27/2023 10:04:16 Type 2 diabetes mellitus without complication 666257336 E11.9 On farxiga 10mg dailyNot on ozempicOn Mounjaro, explained use of this medicine and its side effects, no hx of MEN2 or MCT or thyroid or parathyroi d complaints 11/27/[address] labsDr Wood 01/15/2023 Screening - NAD [id number] 3 Z13.9 C-scope: Get the report, had this with Dr Yuan, she will get the report Mammogram: 03/28/2021 : Neg, ordered 04/18/2022 Mammogram: 07/05/2022 : Neg DEXA: Low bone mass, can do danny and vit D PAP: Refer to OB Get yearly flu shotGet tdap if not doneGet COVID 19 vaccine and its boostersGe t Shingrix vaccine RTC in 3 months, do labs, ER if worse, she and her did verbalize her understand ing of the above Ex-smoker 3789050 Z87.[address] Nova: 08/29/2021 : Cat2 next in one yearLDCT 10/20/2022 LDCT 10/22/2023 Asthma 846765312 J45.90 9 On proair given by Surendra Small NPOn singulair 10mg dailyOn Symbicort Surendra Small [employer] pulmonary 08/08/2023 , f/u in 3-4 monthsNot on anoroDoes well Moderate r ecurrent major depression 75447499 F33.1 Not suicidal or homicidalO n duloxetine 60mg dailyOn amitriptyl ine 10mg 2 tabs at bedtimeDoe s well on these medication sDeclined any psychiatry referrals Chronic ki dney disease 818817710 N18.[address] Mosley vit d weeklyOn calcitriol Is now to see Dr Earl referred by Dr Surjit MACIAS Essential hypertension 06898430 I10 On amlodipine 2.5mg dailyOn lasix 20mg dailyOn magNot on HCTZ 25mg dailyOn ibesartan 300mg dailyOn metoprolol ER 100mg dailyOn K ER 10meq daily Get labsSeen Dr Lorene Lynn [facility] 12/28/2022 , f/u in one monthDr Shane 03/29/2023 Sleep study 04/22/2023 : Neg Low back pain 762910218 M54.50 On flexerillD id see Dr Sonya Nelson for a +ve JOSE JUAN test Hyperlipidemia 04816899 E78.5 On rosuvastat in 40mg dailyGet labs Hypothyroidism 33781433 E03.9 US thyroid 06/04/2022 : Next in one year, one nodule is 9mm, can see ENT to see if this needs biopsy On unithyroid 75mcgs dailyDr Pena 08/16/2022 , 01/15/2023 US thyroid 09/27/2023 : Small thyroid nodules, next in one yearReferr ed to ENT Skin lesion 81233997 L98 .9 Small flat dark lesion noted on the posterior mid lower leg and also red raised bump noted on the natalie elbowsKeep apts with dermatolog y Pain of bi lateral hands 1846753307 1643419 M79.641 M79.642 Get a referral to get EMG/NCV done+ve Phalens and Tinels L>R, but she has refused to have the EMG see case 04/10/[address] Kellee fish now 07/01/2023 Anti-nucle ar factor detected 999350574 R76.[address] Nelson who has left the [facility] did not contact herWill now refer to Dr Thomas Screening mammography 24 110203 Z12.31 Thyroid nodule 810182458 E04.1 US thyroid 09/27/2023 : Small thyroid nodules, next in one yearReferr ed to ENT [id number] Nolberto lazo MD [facility] [address] [place] [address] 03/18/2024 09:45:32 03/18/2024 10:32:49 Type 2 diabetes mellitus without complication 960820564 E11.9 On farxiga 10mg dailyNot on ozempicOn Mounjaro, explained use of this medicine and its side effects, no hx of MEN2 or MCT or thyroid or parathyroi d complaints 11/27/[address] labsDr Wood 01/15/2023 Screening - NAD 73608074 3 Z13.9 C-scope: Get the report, had this with Dr Yuan, she will get the report Mammogram: 03/28/2021 : Neg, ordered 04/18/2022 Mammogram: 07/05/2022 : NegMammogr am: 01/29/2024 : Neg DEXA: 05/18/2022 : Low bone mass, can do danny and vit D PAP: Refer to OB Get yearly flu shotGet tdap if not doneGet COVID 19 vaccine and its boostersGe t Shingrix vaccine RTC in 3 months, do labs, ER if worse, she and her did verbalize her understand ing of the above Ex-smoker 2087112 Z87.[address] Nova: 08/29/2021 : Cat2 next in one yearLDCT 10/20/2022 LDCT 10/22/2023 Asthma 549195669 J45.90 9 On proair given by Surendra Small NPOn singulair 10mg dailyOn Symbicort Susi Ritztobias Not on anoroDoes well Moderate r ecurrent major depression 89802601 F33.1 Not suicidal or homicidalO n duloxetine 60mg dailyOn amitriptyl ine 10mg 1 tabs at bedtimeDoe s well on these medication sDeclined any psychiatry referrals Chronic ki dney disease 483703371 N18.[address] Mosley vit d weeklyOn calcitriol Will refer to Dr Perez as missed her apt with Dr Surjit MACIAS 03/18/2024 and she would like a second opinion Essential hypertension 06047276 I10 On amlodipine 2.5mg dailyOn lasix 20mg dailyOn magNot on HCTZ 25mg dailyOn ibesartan 300mg dailyOn metoprolol ER 100mg dailyOn K ER 10meq daily Get labsSeen Dr Lorene Lynn [facility] 12/28/2022 , f/u in one monthDr Lynn 03/29/2023 Sleep study 04/22/2023 : Neg Low back pain 393102275 M54.50 On flexerillD id see Dr Sonya Nelson for a +ve JOSE JUAN test Hyperlipidemia 54540153 E78.5 On rosuvastat in 40mg dailyGet labs Hypothyroidism 02633865 E03.9 US thyroid 06/04/2022 : Next in one year, one nodule is 9mm, can see ENT to see if this needs biopsy On unithyroid 75mcgs dailyDr Pena 08/16/2022 , 01/15/2023 US thyroid 09/27/2023 : Small thyroid nodules, next in one yearReferr ed to ENT Skin lesion 47940940 L98 .9 Small flat dark lesion noted on the posterior mid lower leg and also red raised bump noted on the natalie elbowsKeep apts with dermatolog y Pain of bi lateral hands 6638808255 9653360 M79.641 M79.642 Get a referral to get EMG/NCV done+ve Phalens and Tinels L>R, but she has refused to have the EMG see case 04/10/[address] Kellee fish now 07/01/2023 , referred again 03/18/2024 Anti-nucle ar factor detected 484544454 R76.[address] Nelson who has left the [facility] did not contact herWill now refer to Dr Martha Welch 02/07/2024 , f/u PRN, diagnosed with OA Thyroid nodule 694093382 E04.1 US thyroid 09/27/2023 : Small thyroid nodules, next in one yearReferr ed to ENT Screening for osteoporosis 491976597 Z13.820 Administra tion of influenza vaccine 35545149 Z23 Health Concerns Section Related Observation LastModified by Organization Detai ls LastModified Time None Recorded Concern Status LastModified by Organization Details LastModified Time None Recorded Advance Directives Directive None Recorded Payers Encounter Date Sequence Insurance Name Policy Number Policy Betts Covered Member ID Betts Member ID Guarantor Name 02/27/2023 1 [employer] [id number] Alie S Mohan [id number] Alie Mohan 07/01/2023 1 UMR [id number] Alie S Mohan [id number] Alie Mohan 10/23/2023 1 UMR [id number] Alie S Mohan [id number] Alie Mohan 11/27/2023 1 UMR [id number] Alie S Mohan [id number] Alie Mohan 03/18/2024 1 UMR [id number] Alie S Mohan [id number] Alie Mohan Notes Date Note Type Note Provider Name and Address Organization Details Recorded Time 02/27/2023 text/html OV 04/18/2022:He re to establish carePast Hx:HTNDMIIReviewed social family and surgical historyHere to discuss above, get labs OV 06/27/2022:Here for her f/u apt, she did do the labsNow sees Dr Surjit MACIAS and also is to see Dr Earl OV 10/31/2022:Here for her f/u apt, she is doing well, she did do the labs on 10/20/2022 OV 02/27/2023: Here for her routine apt, she feels well today Nolberto Davis MD [address] [facility], [place], [address], [place] [facility] [employer] 02/27/2023 16:22:09 07/01/2023 text/html OV 04/18/2022:He re to establish carePast Hx:HTNDMIIReviewed social family and surgical historyHere to discuss above, get labs OV 06/27/2022:Here for her f/u apt, she did do the labsNow sees Dr Surjit MACIAS and also is to see Dr Earl OV 10/31/2022:Here for her f/u apt, she is doing well, she did do the labs on 10/20/2022 OV 02/27/2023: Here for her routine apt, she feels well today OV 07/01/2023: Here for her f/u apt, she is doing well today, she did do the labs Nolberto Davis MD [address] [facility], [place], [address], [facility] [employer] [facility] [employer] 07/12/2023 13:43:16 10/23/2023 text/html OV 04/18/2022:He re to establish carePast Hx:HTNDMIIReviewed social family and surgical historyHere to discuss above, get labs OV 06/27/2022:Here for her f/u apt, she did do the labsNow sees Dr Surjit MACIAS and also is to see Dr Earl OV 10/31/2022:Here for her f/u apt, she is doing well, she did do the labs on 10/20/2022 OV 02/27/2023: Here for her routine apt, she feels well today OV 07/01/2023: Here for her f/u apt, she is doing well today, she did do the labs OV 10/23/2023: Here for her routine apt, she is doing well today, she did do the LDCT and US thyroid, has not yet seen rheumatology, but did see her lung MD and is now on Symbicort Nolberto Davis MD [address], [place], [address], [facility] [employer] [facility] [employer] [facility] 10/23/2023 10:22:23 11/27/2023 text/html OV 04/18/2022:He re to establish carePast Hx:HTNDMIIReviewed social family and surgical historyHere to discuss above, get labs OV 06/27/2022:Here for her f/u apt, she did do the labsNow sees Dr Surjit MACIAS and also is to see Dr Earl OV 10/31/2022:Here for her f/u apt, she is doing well, she did do the labs on 10/20/2022 OV 02/27/2023: Here for her routine apt, she feels well today OV 07/01/2023: Here for her f/u apt, she is doing well today, she did do the labs OV 10/23/2023: Here for her routine apt, she is doing well today, she did do the LDCT and US thyroid, has not yet seen rheumatology, but did see her lung MD and is now on Symbicort OV 11/27/2023: Here for her f/u apt, feels well today, she is now switching to Mounjaro and is here to learn how to use the pen and its side effects Nolberto Davis MD [address], [place], [address], [place] [employer] 11/27/2023 10:07:58 03/18/2024 text/html OV 04/18/2022:He re to establish careNcst Hx:HTNDMIIReviewed social family and surgical historyHere to discuss above, get labs OV 06/27/2022:Here for her f/u apt, she did do the labsNow sees Dr Surjit MACIAS and also is to see Dr Earl OV 10/31/2022:Here for her f/u apt, she is doing well, she did do the labs on 10/20/2022 OV 02/27/2023: Here for her routine apt, she feels well today OV 07/01/2023: Here for her f/u apt, she is doing well today, she did do the labs OV 10/23/2023: Here for her routine apt, she is doing well today, she did do the LDCT and US thyroid, has not yet seen rheumatology, but did see her lung MD and is now on Symbicort OV 11/27/2023: Here for her f/u apt, feels well today, she is now switching to Mounjaro and is here to learn how to use the pen and its side effects OV 03/18/2024: Here for her f/u apt, she is doing well today, she did do the labs Nolberto Davis MD [address], [place], [address], [place] [facility] 03/18/2024 14:07:38 OBGyn Episode No OBEpisode recorded.
[2024-06-20 08:28] LABS: Basophils Absolute Auto 0.1 K/mm3 (0.0-0.1); Eosinophils Absolute Auto 0.2 K/mm3 (0-0.3); Eosinophils Percent Auto 2.1 % (0-4.4); Hematocrit 40.9 % (37.0-47.0); Hemoglobin 13.3 g/dL (12.0-15.0); Immature Granulocyte Absolute 0.03 K/mm3 (0.00-0.031); Immature Granulocyte Percent A 0.3 % (0-0.5); Lymphocytes Absolute Auto 2.86 K/mm3 (0.9-3.2); Lymphocytes Percent Auto 29.2 % (18.3-44.2); Mean Corpuscular HGB Conc 32.5 g/dl (32-36); Mean Corpuscular Volume 95.3 fl (80-100); Mean Platelet Volume 10.4 fl (7.4-10.4); Monocytes Absolute Auto 0.7 K/mm3 (0.1-0.6); Monocytes Percent Auto 6.7 % (2.6-8.5); Neutrophils Percent Auto 60.7 % (45.5-73.1); Platelet Count Result 332 k/mm3 (150-375); Red Blood Count 4.29 M/mm3 (4.2-5.4); Red Cell Distribution Width 13.1 % (11.5-14.5); White Blood Count 9.8 K/mm3 (4.5-10.0)
[2024-06-20 08:38] LABS: Alanine Aminotransferase 23 U/L (6-35); Albumin Level 4.2 g/dL (3.5-5.1); Alkaline Phosphatase 80 U/L (38-126); Anion Gap 8 mmol/L (4-12); Aspartate Amino Transferase 22 U/L (14-36); Bilirubin,Total 0.3 mg/dL (0.2-1.3); Blood Urea Nitrogen 25 mg/dL (7-17); Calcium 9.6 mg/dL (8.4-10.2); Carbon Dioxide 28 mmol/L (22-30); Chloride 103 mmol/L (98-107); Cholesterol 131 mg/dL (0-200); Estimated Glomerular Filt Rate 39; Glucose 101 mg/dL (65-110); HDL Direct 64 mg/dL; Potassium 4.3 mmol/L (3.4-5.0); Sodium 139 mmol/L (137-145); Triglycerides 130 mg/dL (<150)
[2024-06-20 08:49] LABS: LDL Cholesterol Direct 40 mg/dL
[2024-06-20 09:08] LABS: Free T4 Free Thyroxine 1.08 ng/dL (0.78-2.19)
[2024-06-20 09:17] LABS: Creatinine Urine 63.1 mg/dL
[2024-06-20 09:19] LABS: Hemoglobin A1C 5.4 % (<5.7)
[2024-06-20 09:28] LABS: MALB Creatinine Ratio < 9.5 mg/g (0-30); Microalbumin Urine Random < 6.0 mg/L (0-16.7)
== END 2024-06-20 07:42 | disposition home or self-care (01) ==
PROVIDERS: PCP Internal Medicine; Visit Provider Internal Medicine
DX: E11.9 Type 2 diabetes mellitus without complications (principal); E78.5 Hyperlipidemia, unspecified
CPT/HCPCS: 36415; 80053; 80061; 82043; 83036; 84439; 84443; 85025

== ENCOUNTER 2024-07-28 09:50 | Outpatient (CLI) | payer OTHER, SELFPAY ==
--- NOTE | ~2024-07-28 | XR_ITS ---
Lumbosacral Spine: AP and lateral views Clinical History: Pain Findings: The normal lordotic curve is maintained. The vertebral bodies and posterior elements are i ntact. The intervertebral disc spaces are preserved. There is moderate to advanced facet arthropathy at L4-L5 and L5-S1. The sacroiliac joints are normally outlined. 16 mm ovoid calcification projects just inferior to the left 12th rib Impression: Facet arthropathy, as above. 16 mm ovoid appearing calcification projecting inferior to the left 12th rib. Renal or renal pelvis s tone is a consideration. Correlate clinically. Reviewed, dictated and finalized at location . Impression: Facet arthropathy, as above. 16 mm ovoid appearing calcification projecting inferior to the left 12th rib. R enal or renal pelvis stone is a consideration. Correlate clinically.
== END 2024-07-28 09:51 | disposition home or self-care (01) ==
LOC: MICIMG 09:51
PROVIDERS: PCP Internal Medicine; Visit Provider Internal Medicine
DX: M47.896 Other spondylosis, lumbar region (principal); M47.897 Other spondylosis, lumbosacral region
CPT/HCPCS: 72100

== ENCOUNTER 2024-09-09 15:15 | Outpatient (CLI) | payer OTHER, SELFPAY ==
--- NOTE | ~2024-09-09 | XR_ITS ---
HISTORY: PAIN IN LEFT SHOULDER COMPARISON: None TECHNIQUE: 2 views of the left shoulder were performed. FINDINGS: No acute fracture. The glenohumeral and acromioclavicular joint space is maintained The visualized portion of the adjacent left lung is clear. The humeral head is well seated within the glenoid fossa. IMPRESSION: No acute fracture or anterior dislocation. Reviewed, dictated and finalized at location A.
== END 2024-09-09 15:16 | disposition home or self-care (01) ==
PROVIDERS: PCP Internal Medicine; Visit Provider Internal Medicine
DX: M25.512 Pain in left shoulder (principal)
CPT/HCPCS: 73030

== ENCOUNTER 2024-10-10 07:24 | Outpatient (CLI) | payer OTHER, SELFPAY ==
[2024-10-10 08:22] LABS: Hematocrit 43.2 % (37.0-47.0); Hemoglobin 14.1 g/dL (12.0-15.0); Mean Corpuscular HGB Conc 32.6 g/dl (32-36); Mean Corpuscular Hemoglobin 30.9 pg (26-34); Mean Corpuscular Volume 94.5 fl (80-100); Mean Platelet Volume 10.7 fl (7.4-10.4); Platelet Count Result 316 k/mm3 (150-375); Red Blood Count 4.57 M/mm3 (4.2-5.4); White Blood Count 9.7 K/mm3 (4.5-10.0)
[2024-10-10 08:32] LABS: Alanine Aminotransferase 19 U/L (6-35); Albumin Level 4.3 g/dL (3.5-5.1); Alkaline Phosphatase 74 U/L (38-126); Anion Gap 7 mmol/L (4-12); Aspartate Amino Transferase 29 U/L (14-36); Bilirubin,Total 0.3 mg/dL (0.2-1.3); Blood Urea Nitrogen 25 mg/dL (7-17); Calcium 9.8 mg/dL (8.4-10.2); Carbon Dioxide 28 mmol/L (22-30); Chloride 103 mmol/L (98-107); Cholesterol 136 mg/dL (0-200); Estimated Glomerular Filt Rate 40; Glucose 102 mg/dL (65-110); HDL Direct 58 mg/dL; Phosphorus 3.6 mg/dL (2.5-4.5); Potassium 4.1 mmol/L (3.4-5.0); Sodium 138 mmol/L (137-145); Total Protein 7.3 g/dL (6.3-8.2); Triglycerides 106 mg/dL (<150)
[2024-10-10 08:40] LABS: Hemoglobin A1C. 5.5 % (<5.7)
[2024-10-10 08:43] LABS: LDL Cholesterol Direct 45 mg/dL
[2024-10-10 09:04] LABS: Thyroid Stimulating Hormone 0.261 uIU/mL (0.465-4.680)
[2024-10-10 09:22] LABS: Free T4 Free Thyroxine 1.15 ng/dL (0.78-2.19)
[2024-10-10 11:18] LABS: Creatinine Urine 90.9 mg/dL; Total Protein Urine Random 10 mg/dL; Ur Ttl Prot Creatinine Ratio 0.11 mg/mg (0-0.20)
[2024-10-10 11:20] LABS: MALB Creatinine Ratio 9.6 mg/g (0-30); Microalbumin Urine Random 8.7 mg/L (0-16.7)
== END 2024-10-10 07:25 | disposition home or self-care (01) ==
PROVIDERS: PCP Internal Medicine; Referring Provider Internal Medicine; Visit Provider Internal Medicine Nephrology
DX: I12.9 Hypertensive chronic kidney disease with stage 1 through stage 4 chronic kidney disease, or unspecified chronic kidney disease (principal); E11.22 Type 2 diabetes mellitus with diabetic chronic kidney disease; N18.32 Chronic kidney disease, stage 3b; N25.81 Secondary hyperparathyroidism of renal origin
CPT/HCPCS: 36415; 80053; 80061; 80069; 82043; 82570; 83036; 83970; 84156; 84439; 84443; 85027

== ENCOUNTER 2024-10-31 09:58 | Outpatient (CLI) | payer OTHER, SELFPAY ==
--- NOTE | ~2024-10-31 | US_ITS ---
Thyroid ultrasound. Clinical History: Thyroid nodule Findings: Real-time sonography of the thyroid gland was performed. The right lobe measures 3.7 x 1.0 x 1.2 cm. The left lobe measures 3.6 x 0.9 x 1.3 cm. The isthmus is 4 mm in AP diameter. There is a 7 mm heterogeneous echogenicity parallel nodule in the right lower pole. There is a 9 mm heterogeneous, predominantly isoechoic nodule at the left midpole. There is an additi onal 4 mm hypoechoic circumscribed nodule at the left lower pole. Impression: Subcentimeter thyroid nodules, as above.. Reviewed, dictated and finalized at location M. Impression: Subcentimeter thyroid nodules, as above..
--- NOTE | ~2024-10-31 | CT_ITS ---
CT Scan of the Chest without Contrast: Clinical Indication: Lung cancer screening, nicotine dependence Technique: Contiguous sections were acquired throughout the chest without intravenous contrast. Dose reduction technique was used on this scan by utilizing automated exposure control and iterative recon struction technique. The dose-length product (DLP) was 172.30 mGy-cm. COMPARISON: 10/22/2023 Findings: There is no evidence of any significant mediastinal, hilar or axillary lymphadenopathy. The mediastin al soft tissues appear normal. There is no evidence of pleural or pericardial effusion. The lungs are clear. No pulmonary nodules or infiltrates are noted. Images through the upper abdomen reveal no abnormalities. Impression: Lung RADS 1: Negative. 12 month follow-up screening CT advised. Reviewed, dictated and finalized at location . Impression: Lung RADS 1: Negative. 12 month follow-up screening CT advised.
--- OUTSIDE RECORDS SUMMARY | 2024-10-31 10:02 | XMS_ITS ---
Author Organization [facility] Office Address [address] [facility] [address] [place] [address] Care Team Providers Care Search Marketing Specialist Name Role Phone Surjit Geo Unavailable [phone] Medications Medication SIG (Take, Route, Frequency, Duration) [...] 90 Active Vitamin D (Ergocalciferol) 1.25 MG (94021 UT) TAKE 1 CAPSULE BY MOUTH WEEKLY; Duration: 90 Active Encounters Encounter Location Date Provider Diagnosis [place] Office [address] [facility] [address] [place] [address] 06/26/2023 Geo Eddy Chronic kidney disea se, [...] * ZHEN ALONZOOB: 969 (54 yo F)Acc No.[id number]:06/26/2023 Progress Notes Patient: TORI WATTS Provider: Lenny HEART MD, F.Colette.Manuel.P, F.A.S.N. :1970 A ge:53 Y S ex:Female Date:06/26/2023 Address:[address] [place] [address] Subjective: * Chief Complaints: * * Medical [...] 02/24/2024, Taking Vitamin D (Ergocalciferol) 1.25 MG (16265 UT) Capsule TAKE 1 CAPSULE BY MOUTH [...] Treatment: * Billing Information: * Visit Code: 06216 Office Visit, Est Pt., Level 4. * Procedure Codes: * Electronic signature of Bailey Eddy MD on 10/31/2024 at 10:02 AM CDT Sign off status: Pending * Provider: Lenny HEART MD, Umu.Colette.Manuel.P, F.A.S.N. Date: 0 06/26/2023 Generated for Printing/Faxing/eTransmitting on: 10/31/2024 10:02 AM CDT
--- OUTSIDE RECORDS SUMMARY | 2024-10-31 10:02 | XMS_ITS | Patient Health Record ---
Author Organization [facility] Office Address [address] [place] [address] Care Team Providers Care Utility Repairer Name Role Phone Geo Eddy Unavailable [phone] Reason For Referral No Information Medications Medication SIG (Take, Route, Frequency, Duration) Notes Start Date End Date Status Calcitriol 0.25 MCG 1 capsule Or[address] Thr ee times a day; Duration: 90 day(s) Active Vitamin D (Ergocalciferol) 1.25 MG (25677 UT) TAKE 1 CAPSULE BY MOUTH WEEKLY; Duration: 90 Active Furosemide 20 MG TAKE 1 TABLET BY DEREK TH ONCE DAILY; Duration: 90 Active Problems Problem Type SNOMED Code ICD Code Onset Dates Problem Status W/U Status Risk Notes Problem Secondary hyperparathyroidism (58879263) Secondary hyperparathyroid ism, not elsewhere classified (E21.1) Active confirmed Problem Vitamin D deficiency (13395949) Vitamin D deficiency, unspecified (E55.9) Active confirmed Problem Renal osteodystrophy (52817147) Renal osteodystrophy (N25.0) Active confirmed Problem Essential hypertension (18337443) Essential hypertension (I10) Active confirmed Problem Chronic kidney disease stage 3A (disorder) (305876784) Chronic kidney disease, stage 3a (N18.31) Active confirmed Plan Of Treatment No Information
--- OUTSIDE RECORDS SUMMARY | 2024-10-31 10:02 | XMS_ITS | Data Portability ---
Author Organization [place] - [employer], Main Office Address [address] [place] [address] Care Team Providers Care Community Support Specialist Name Role Phone NOLBERTO DAVIS Primary Care Provider NOLBERTO DAVIS Referring Provider MISTY YUAN Welding Systems And Equipment Repairer [phone] YEIMI LYNN Fabric Coating Supervisor ANNMARIE ESPITIA Pediatric Assistant [phone] [place] [address] - PULMONOLOGY Pulmonologi st LILIA DURÁN Loan Manager Assessment Encounter Date Assessment Date Assessment LastModified by Organization Details LastModified Time 11/27/2023 11/27/2023 06/16/2022: GGT WNL CMP: BUN 24/Cr 1.40, GFR 39 Lipids: WNL TSH: WNL VIT D WNL A1C 5.5 CBC WBC 11.1 10/20/2022: FT4 0.85 BUN 21/Cr 1.20, GFR 47 A1C 6.1 Hep B/C: Neg 02/19/2023: A1C 5.7 Cr 1.40, GFR 39 TSH 0.081L 06/18/2023: A1C 5.8 BUN/r/GFR: 21/1.1/52 TSH 0.067L, FT4 1.09 Lipids; WNL 10/05/2203: Dr Durán IJ A1C 5.9 BUN 27, Cr 1.40, GFR [...] 39 TSH 0.081L 06/18/2023: A1C 5.8 BUN/r/GFR: 21/1.152 TSH 0.067L, FT4 1.09 Lipids; WNL 10/05/2203: Dr Surjit MACIAS A1C 5.9 BUN 27, Cr 1.40, GFR 39 WBC/TSH: Stable Chol 148, HDL 71, LDL 71, TG 94 (stable) 03/10/2024: BUN/Cr/GFR: 06/05. WBC: 10.3 [email or web address] Not available 03/18/2024 10:02:58 07/08/2024 07/08/2024 06/16/2022: GGT WNL CMP: BUN 24/Cr 1.40, GFR 39 Lipids: WNL TSH: WNL VIT D WNL A1C 5.5 CBC WBC 11.1 10/20/2022: FT4 0.85 BUN 21/Cr 1.20, GFR 47 A1C 6.1 Hep B/C: Neg 02/19/2023: A1C 5.7 Cr 1.40, GFR 39 TSH 0.081L 06/18/2023: A1C 5.8 BUN/r/GFR: 21/1.152 TSH 0.067L, FT4 1.09 Lipids; WNL 10/05/2203: Dr Surjit MACIAS A1C 5.9 BUN 27, Cr 1.40, GFR 39 WBC/TSH: Stable Chol 148, HDL 71, LDL 71, TG 94 (stable) 03/10/2024: BUN/Cr/GFR: 22/1.5/36 WBC: 10.3 06/20/2024: A1C 5.4 BUN/Cr./GFR 25/1.41/39 Not available 07/08/2024 10:02:36 Plan of Treatment Reminders Order Date Submit Date Provider Last Modified By Organization Details Last Modified Time Details Appointments Follow Up 15 2024 09:00A Tanika chase MD Not available Not available Not available Lab lipid panel, serum 2024 025 [facility] (Lab), [address] [place] [address] [place] [address], [phone], 10/10/2024 12:58:19 CMP, serum or plasma 2024 025 [facility] (Lab), [address] [place] [address] [place] [address], [phone], 10/10/2024 12:53:12 CBC w/ auto diff [address] (Lab), [address] [place], [place] [address]e [address] [place] [address], [phone], 07/08/2024 10:38:13 TSH + free T4, serum 2024 025 [facility] (Lab), [address] [place], [place] [address] [address] [place] [address], [address], 10/10/2024 12:58:19 HbA1c (hemoglob in A1c), blood [address] (Lab), [address] [place] [address], [phone], 07/08/2024 10:38:12 microalbu min, urine 2024 025 [facility] (Lab), [address] [place], [place] [address] [address] [place] [address], [address], 10/10/2024 12:53:12 lipid panel, serum [address] (Lab), [address] [place], [place] [address] [address] [place] [address], [phone], 09/16/2024 13:51:39 CMP, serum or plasma 2023 024 [facility] (Lab), [facility] [address] [place] [address], [phone], 06/12/2024 17:03:56 CBC w/ auto diff [address] (Lab), [address] [place] [address] [place] [address], [phone], 09/16/2024 13:51:39 TSH + free T4, serum [address] (Lab), [address] [place] [address], [address], 09/16/2024 13:51:39 HbA1c (hemoglob in A1c), blood [address] (Lab), [address] [place] [address], [address], 09/16/2024 13:51:38 microalbu min, urine [address] (Lab), [address] [place] [address], [address], 09/16/2024 13:51:38 lipid panel, serum 2023 024 [facility] (Lab), [address] [place] [address], [address], 03/10/2024 10:33:35 CMP, serum or plasma 2023 024 [facility] (Lab), [address] [place], [place] [address] [address] [place] [address], [phone], 03/10/2024 10:33:35 CBC w/ auto diff 2023 024 [facility] (Lab), [address] [place] [address], [address], 03/10/2024 10:33:36 TSH + free T4, serum 2023 024 [facility] (Lab), [facility] [address], [address], 03/10/2024 10:33:35 HbA1c (hemoglob in A1c), blood 2023 024 [facility] (Lab), [address] [facility] [address], [place], [address], 03/10/2024 10:33:35 microalbu min, urine 2023 024 [facility] (Lab), [facility] [address], [place], [address], 03/10/2024 12:18:29 Referral ENT surgery referral - Please call patient to schedule an appointme nt. Thank you. 2024 025 ankur Eisenberg [facility], [address], [place], [address], 10/06/2024 09:33:57 hand surgeon referral - Please call patient to schedule an appointme nt. Thank you. 2024 025 ankur Bishop MD, [address] [facility] [address], [place], [address], 10/06/2024 09:33:56 cardiolog ist referral - Please call patient to schedule an appointme nt. Thank you. 2024 025 ankur Lynn MD, [address], [place], [address], 10/06/2024 09:33:56 podiatris t referral - Please call patient to schedule an appointme nt. Thank you. 2024 025 ankur Singh DPM, [address], [address], [place], [address], 10/06/2024 09:33:54 diabetic ophthalmo logy referral - Please call patient to schedule an appointme nt. Thank you. 2024 025 ankur Stevenson MD, [address] [facility], [place], [address], 10/06/2024 09:33:55 dermatolo gist referral - Please call patient to schedule an appointme nt. Thank you. 2024 025 [facility], [address] [place], [address], 10/06/2024 09:33:55 ENT surgery referral - Please call patient to schedule. 2023 024 ankur Eisenberg [employer]ICAL MANUFACTURING TECHNICIAN, [address], [place], [address], 06/17/2024 08:50:45 hand surgeon referral - Please call patient to schedule. 2023 024 ankur Bishop MD, [address] [place] [address] [address], [place], [address], 06/17/2024 08:50:33 nephrolog ist referral - Please call patient to schedule. 2023 024 ankur Perez MD, [address] [facility] [address], [place], [address], 06/17/2024 08:50:57 cardiolog ist referral 2023 024 [email or web address] Yeimi Lynn MD, [address] [facility], [address], [place], [address], 03/18/2024 12:40:44 podiatris t referral - Please call patient to schedule. 2023 024 ankur Singh DPM, [address], [place], [address], 06/17/2024 08:49:42 diabetic ophthalmo logy referral - Please call patient to schedule. 2023 024 ankur Stevenson MD, [address] [facility], [place], [address], 06/17/2024 08:50:00 dermatolo gist referral - Please call patient to schedule. 2023 024 [facility], [address] [place], [address], 06/17/2024 08:50:17 ENT surgery referral 2023 024 [email or web address] Surendra Henrik, [address] [facility], [place], [address], 03/18/2024 14:09:59 hand surgeon referral 2023 024 Tab Goodson MD, [address] [facility] [address], [place], [address], 03/18/2024 14:05:06 rheumatol ogist referral 2023 024 [email or web address] Heri Thomas MD, [address] [facility], [address], [place], [address], 05/26/2024 08:03:22 cardiolog ist referral 2023 024 2 Yeimi Lynn MD, [address] [facility], [place], [address], 07/21/2024 08:10:20 podiatris t referral 2023 024 [email or web address] Brian Singh DPM, [address], [address], [place], [address], 05/26/2024 08:03:21 diabetic ophthalmo logy referral 2023 [address] [place] [address] Cande Stevenson MD, [address] [facility], [place], [address], 03/18/2024 13:53:32 dermatolo gist referral 2023 024 [place] [address] [facility], [address] [facility], [place], [address], 03/18/2024 14:06:21 Procedures None recorded. Surgeries None recorded. Imaging XR, shoulder, 2 or more view 2024 025 [facility], [address], [address], [place], [address], 09/09/2024 18:07:33 XR, lumbosacr al spine, 2 or 3 view 2024 025 [facility] (Imaging), [address] [place] [address], [address], 07/28/2024 13:25:15 US, thyroid [address] (Imaging), [address] [place] [address], [address], 08/13/2024 16:21:01 LDCT, chest, for lung cancer screening - Please call patient to schedule. [address] (Imaging), [address] [place] [address], [address], 08/13/2024 16:21:00 DEXA [address] (Imaging), [address] [place] [address], [address], 07/23/2024 10:04:17 DEXA [address] (Imaging), [address] [place] [address], [address], 06/02/2024 08:11:03 MAMMO, screening , digital, bilateral [address] (Imaging), [address] [facility] [address], [place], [address], 05/11/2024 17:55:57 Medication Orders meloxicam 7.5 mg tablet 2024 025 [id number], [address] [place] [address], [id number], 09/09/2024 15:06:23 cyclobenz aprine 10 mg tablet 2024 025 [place] [id number], [address] [facility] [address] [place] [address], [id number], 07/27/2024 16:46:00 meloxicam 7.5 mg tablet 2024 025 [id number], [address] [place] [address], [id number], 07/27/2024 16:45:59 Farxiga 10 mg tablet 2024 025 [place] [employer] [facility]30788, [address] [place] [address], [id number], 07/08/2024 10:28:41 Patient TargetsNo targets recorded. Patient InstructionsNo instructions recorded. Reason for Referral Sharepoint Application Developer Referral for Type 2 diabetes mellitus without complication Referring Physician: Nolberto [facility], Encounter Date: 11/27/2023 Diabetic Ophthalmology Refer ral for Type 2 diabetes mellitus without complication Referring Physician: Nolberto [facility], Encounter Date: 11/27/2023 Forming Machine Upkeep Mechanic Helper Referral for S kin lesion Referring Physician: Nolberto [facility], Encounter Date: 11/27/2023 Fabric Coating Supervisor Referral for Es sential hypertension Referring Physician: Nolberto [facility], Encounter Date: 11/27/2023 Pediatric Assistant Referral for Anti-nuclear factor detected Referring Physician: Nolberto [facility], Encounter Date: 11/27/2023 Hand Surgeon Referral for Pa in of bilateral hands Referring Physician: Nolberto [facility], Encounter Date: 11/27/2023 ENT Surgery Referral for Thy roid nodule Referring Physician: Nolberto [facility], Encounter Date: 11/27/2023 Sharepoint Application Developer Referral for Type 2 diabetes mellitus without complication Please call patient to schedule. Referring Physician: Mike [facility], Encounter Date: 03/18/2024 Diabetic Ophthalmology Refer ral for Type 2 diabetes mellitus without complication Please call patient to schedule. Referring Physician: Mike [facility], Encounter Date: 03/18/2024 Forming Machine Upkeep Mechanic Helper Referral for S kin lesion Please call patient to schedule. Referring Physician: Mike [facility], Encounter Date: 03/18/2024 Fabric Coating Supervisor Referral for Es sential hypertension Referring Physician: Mike [facility], Encounter Date: 03/18/2024 Hand Surgeon Referral for Pa in of bilateral hands Please call patient to schedule. Referring Physician: Mike [facility], Encounter Date: 03/18/2024 ENT Surgery Referral for Thy roid nodule Please call patient to schedule. Referring Physician: Nolberto [facility], Encounter Date: 03/18/2024 Loan Manager Referral for Ch ronic kidney disease Please call patient to schedule. Referring Physician: Mike [facility], Encounter Date: 03/18/2024 Sharepoint Application Developer Referral for Type 2 diabetes mellitus without complication Please call patient to schedule an appointment. Thank you. Referring Physician: Nolberto [facility], Encounter Date: 07/08/2024 Diabetic Ophthalmology Refer ral for Type 2 diabetes mellitus without complication Please call patient to schedule an appointment. Thank you. Referring Physician: Nolberto Davis [facility], Encounter Date: 07/08/2024 Forming Machine Upkeep Mechanic Helper Referral for S kin lesion Please call patient to schedule an appointment. Thank you. Referring Physician: Nolberto [facility], Encounter Date: 07/08/2024 Fabric Coating Supervisor Referral for Es sential hypertension Please call patient to schedule an appointment. Thank you. Referring Physician: Nolberto [facility], Encounter Date: 07/08/2024 Hand Surgeon Referral for Pa in of bilateral hands Please call patient to schedule an appointment. Thank you. Referring Physician: Nolberto [facility], Encounter Date: 07/08/2024 ENT Surgery Referral for Thy roid nodule Please call patient to schedule an appointment. Thank you. Referring Physician: Nolberto [facility], Encounter Date: 07/08/2024 Results Created Date Observation Date Name Description Value Unit Range Abnormal Flag Note LastModifiedBy Organization Detail LastModifiedTime 01/18/2001/18/2024 XR, sacro iliac joint (s) No observ ation record ed. [address], [place], [address], 01/23/2024 16:11:53 01/18/20 24 01/18/2024 XR, hand No observ ation record ed. [address], [place], [address], 01/23/2024 16:12:08 01/18/20 24 01/18/2024 XR, chest , 2 view No observ ation record ed. [address], [place], [address], 01/23/2024 16:12:22 01/18/20 24 01/18/2024 XR, foot No observ ation record ed. [address], [place], [address], 01/23/2024 16:12:37 01/18/20 24 01/18/2024 XR, knee No observ ation record ed. [address], [place], [address], 01/23/2024 16:12:58 01/18/20 24 01/18/2024 XR, hip, bilat eral No observ ation record ed. [address], [place], [address], 01/23/2024 16:14:44 01/18/20 24 01/18/2024 XR, lumba r spine No observ ation record ed. [address], [place], [address], 01/23/2024 16:15:28 01/29/20 24 01/29/2024 MAMMO , scree liborio, digit al, bilat eral No observ ation record ed. [address] (Imaging) [address] [place] [address] [address], [place], [address], 07/23/2024 13:53:43 06/12/19 25 06/12/2024 imagi ng/di agnos tic resul t No observ ation record ed. [facility] [address], [place], [address], 06/12/2024 14:48:32 07/29/19 25 07/28/2024 XR, lumbo sacra l spine , 2 or 3 view No observ ation record ed. [facility] [address], [place], [address], 07/28/2024 13:25:15 09/10/19 25 09/09/2024 XR, shoul kvng, 2 or more view No observ ation record ed. [email or web address] [address], [place], [address], 09/10/2024 10:09:22 Result Notes None recorded. Problems Name Problem SNOMED Code Status Onset Date Resolution Date Notes Provider Name and Address Organization Details Recorded Time Anti-nucle ar factor detected 564551624 Active 2022 Not Available [facility] 3 16:11:45 Vitamin D deficiency 38874428 Active 2022 Not Available [facility] 3 16:11:45 Hypothyroi dism 66703991 Active 2022 Not Available [facility] 3 16:11:45 Hyperlipid emia 58852819 Active 2022 Not Available [facility] 3 16:11:45 Liver enzymes level above reference range 625295524 Active 2022 Not Available [facility] 3 16:11:45 Hyperglyce chon 65289710 Active 2022 Not Available [facility] 3 16:11:46 Type 2 diabetes mellitus without complicati on 953470462 Active 2022 Nolberto lazo MD [address], [place], [address] , [facility] [employer] 3 16:52:47 Asthma 488143466 Active 2022 Nolberto lazo MD [address], [place], [address] , [facility] 3 16:53:13 Moderate recurrent major depression 50243898 Active 2022 Nolberto lazo MD [address], [place], [address] , [facility] 3 16:53:18 Chronic kidney disease 015178807 Active 2022 Nolberto lazo MD [address], [place], [address] , [facility] 3 16:53:21 Essential hypertensi on 45248413 Active 2022 Nolberto lazo MD [address], [place], [address] , [facility] 3 16:54:02 Low back pain 716126840 Active 2022 Nolberto lazo MD [address], [place], [address] , [facility] 3 16:54:34 Non-alcoho lic fatty liver 938326817 Active 2022 Kerline armstrong, [facility] 3 10:51:05 Skin lesion 38234161 Active 2022 Nolberto lazo MD [address], [place], [address] , [facility] 3 17:24:18 Pain of bilateral hands 4226930837127 9109 Active 2022 Nolberto lazo MD [address], [place], [address] , [facility] 3 17:25:10 Gastroesop hageal reflux disease without esophagiti s 735222946 Active 2022 Kerline armstrong, [facility] 3 12:41:57 Prediabete s 174723349 Active 2022 Karina Pena MD [address], [place], [address] , [facility] 3 20:12:10 Thyroid nodule 276216734 Active 2023 Nolberto lazo MD [address] [facility] [place] [address], [place], [address] , [facility] 4 10:17:49 COVID-19 541937682 Active 2023 Tatiana Bush MA null, [facility] 4 15:30:43 Pain of left shoulder joint 6437483050465 9109 Active 2024 Nolberto lazo MD [address] [facility], [facility] [address], [place], [address] , [facility] [employer] [facility] 5 14:52:24 Problem Notes None recorded. Procedures Surgical History Date Name Laterality Status Provider Name and Address Organization Details Recorded Time Cholecystectomy completed Niki bolden [facility] 08/16/2022 10:15:58 Hysterectomy, Partial completed CARMEL Jackson [facility] 02/27/2023 15:54:25 Imaging Results None recorded. Procedure Notes None recorded. Medical Equipment None Reported. Allergies Allergen ID Allergen Name Allergen Category Reaction Reaction Severity Criticality Documentation Date Start Date Code Code System Note Provider Name and Address Organization Details Recorded Time 26829 wheat gluten extract food Not available Not available Not available 02/27/2023 93316 81 RxNorm [facility] 3 15:54:38 No known drug allergies Medications Name Sig Start Date Stop Date Status Note LastModified by Organization Details LastModified Time celecoxib 200 mg capsule TAKE 1 CAPSULE BY MOUTH DAILY NEEDED FOR PAIN 04/18 completed Not Available Not Available Not Available cyclobenz aprine 10 mg tablet TAKE 1 TABLET BY MOUTH EVERY DAY NEEDED active Not Available Not Available No t [...] tablet TAKE 1 TABLET BY MOUTH DAILY 07/08 completed Not Available Not Available Not Available potassium chloride ER 10 mEq tablet,ex tended release Take 1 tablet every day by oral route. 10/31 completed duplicat e Not Available Not Available Not Available butalbita l-acetami nophen-ca ffeine 50 mg-325 mg-40 mg tablet TK 1 T PO QID PRF RODGERS 04/18 completed Not Available Not Available Not Available meloxicam 7.5 mg tablet TAKE 1 TABLET BY MOUTH TWICE DAILY NEEDED active Not Available Not Available No t Available dexametha sone 1 mg tablet take dexa tablet at 10 pm night before 8 am cortisol 10/31 completed Not Available Not Available Not Available amitripty line 10 mg tablet TAKE 1 TABLET EVERY OTHER DAY AT BEDTIME FOR 1 WEEK THEN 1/2 TABLET EVERY OTHER DAY AT BEDTIME FOR 1 WEEK THEN STOP 09/09 completed Not Available Not Available Not Available Unithroid 50 mcg tablet TAKE 1 [...] 1 TABLET BY MOUTH EVERY DAY AT BEDTIME active Not Available Not Available [...] No t Available Unithroid 75 mcg tablet TAKE 1 TABLET BY MOUTH EVERY DAY IN THE MORNING active Not Available Not Available No t Available Vitamin D2 1,250 mcg (50,000 unit) capsule 09/09 completed Not Available Not Available Not Available metformin ER 500 mg tablet,ex tended release 24 hr TAKE 1 TABLET BY MOUTH EVERY DAY AT DINNER 01/15 completed Not Available Not Available Not Available calcitrio l 0.25 mcg capsule TAKE 1 CAPSULE BY MOUTH 3 TIMES DAILY active Not Available Not Available No t Available irbesarta n 300 mg tablet TAKE 1 TABLET BY MOUTH DAILY active Not Available Not Available No t Available rosuvasta tin 40 mg tablet TAKE 1 TABLET BY MOUTH DAILY active Not Available Not Available No t Available potassium chloride ER 10 mEq tablet,ex tended release(p art/cryst ) TAKE 1 TABLET BY MOUTH DAILY 07/08 completed Not Available Not Available Not Available bupropion HCl XL 150 mg 24 [...] release TAKE 1 CAPSULE BY MOUTH DAILY active Not Available Not Available No t Available Katarina-D 24 Hour 180 mg-240 mg tablet,ex tended release TK 1 T PO ONCE DAILY PRN FOR ALLERGIE S 04/18 completed Not Available Not Available Not Available calcium 10/22 completed Not Available Not Available Not Available budesonid e-formote rol HFA 160 mcg-4.5 mcg/actua tion aerosol inhaler INHALE 2 PUFFS BY MOUTH EVERY 12 HOURS. RINSE MOUTH AND SPIT AFTER EACH USE active Not Available Not Available No t Available Farxiga 10 mg tablet Take 1 tablet every day by oral route for 90 days. 2024 active Not Available Not Available Not Avai lable Anoro Ellipta 62.5 mcg-25 mcg/actua tion powder for inhalatio n INHALE 1 PUFF BY MOUTH EVERY DAY 10/31 completed Not Available Not Available Not Available Mounjaro 5 mg/0.5 mL subcutane ous pen injector ADMINIST ER 5 MG UNDER THE SKIN EVERY WEEK active Not Available Not Available No t Available Mounjaro 2.5 mg/0.5 mL subcutane ous pen [...] (BMI) Body weight Body temperature Heart rate Oxygen saturation Oxygen saturation in Arterial blood by Pulse oximetry Systolic And Diastolic Provider Name and Address Organization Details Last Updated DateTime 5 162.56 cm 37.1 kg/m2 21676.9 5 g 98.3 [degF] 59 /min 98 % 98 % 114/74 mm[Hg] Nory Young MA [place] [employer] [facility] [employer] 5 09:53:21 Date Recorded Body height Body mass index (BMI) Body weight Body temperature Heart rate Systolic And Diastolic Provider Name and Address Organization Details Last Updated DateTime 5 162.56 cm 37.1 kg/m2 74481.9 5 g 98.9 [degF] 60 /min 110/70 mm[Hg] CARMEL Jackson [place] [employer] [facility] [employer] 5 15:44:28 Date Recorded Body height Body mass index (BMI) Body weight Body temperature Heart rate Oxygen saturation Oxygen saturation in Arterial blood by Pulse oximetry Systolic And Diastolic Provider Name and Address Organization Details Last Updated DateTime 5 162.56 cm 36.2 kg/m2 90143.9 9 g 98.1 [degF] 56 /min 98 % 98 % 110/65 mm[Hg] Nory Young MA [employer] 5 14:46:38 Date Recorded Body height Body mass index (BMI) Body weight Body temperature Heart rate Systolic And Diastolic Provider Name and Address Organization Details Last Updated DateTime 4 162.56 cm 41.2 kg/m2 488015. 17 g 97.2 [degF] 72 /min 120/80 mm[Hg] Elena [place], CARMEL [employer] 4 09:39:04 Date Recorded Body height Body mass index (BMI) Body weight Body temperature Heart rate Systolic And Diastolic Provider Name and Address Organization Details Last Updated DateTime 4 162.56 cm 39.3 kg/m2 747816. 65 g 97.2 [degF] 76 /min 122/65 mm[Hg] Elena Castillo BRIANColette [employer] 4 09:59:44 Social History Question Answer Notes LastModified by Organization Details LastModified Time Tobacco Smoking Status Former Smoker quit smoking 2014 CARMEL Jackson [facility] Gertrude [facility] [employer] 07/13/2024 15:29:27 What Is Your Level Of Caffeine Consumption? Heavy [id number] Information not available 06/13/2022 In The 14 Days Before Symptom Onset, Have You Had Close Contact With A Laboratory-confi rmed COVID-19 While That Case Was Ill? No MIGRATION.300026 Information not available 06/13/2022 In The 14 Days Before Symptom Onset, Have You Had Close Contact With A Person Who Is Under Investigation For COVID-19 While That Person Was Ill? No MIGRATION.300026 Information not available 06/13/2022 What Type Of Diet Are You Following? REGULAR MIGRATION.300026 Information not available 06/13/2022 Which Illicit Or Recreational Drugs Have You Used? Cannabis Information not available 07/27/2024 What Is The Highest Grade Or Level Of School You Have Completed Or The Highest Degree You Have Received? [id number] MIGRATION.300026 Information not available 06/13/2022 Have There Been Any Changes To Your Family Or Social Situation? No MIGRATION.0301 [id number] Information not available 06/13/2022 What Is The Fluoride Status Of Your Home? Unknown MIGRATION.0301 [id number] Information not available 06/13/2022 When Did You Quit Smoking? 6-10yearssincelast cigarette MIGRATION.0301 [id number] Information not available 06/13/2022 Are There Any Guns Present In Your Home? Yes MIGRATION.0301 [id number] Information not available 06/13/2022 Do You Use Insect Repellent Routinely? No MIGRATION.0301 [id number] Information not available 06/13/2022 Where Do You Live? SingleLevelHouse MIGRATION.0301 [id number] Information not available 06/13/2022 What Was The Date Of Your Most Recent Tobacco Screening? 09/09/2024 Information not available 09/09/2024 What Is Your Current Pack Years? 30ormorepackyears Information not available 07/13/2024 Do You Have Any Pets? Yes MIGRATION.0301 [id number] Information not available 06/13/2022 What Is Your Relationship Status? MIGRATION.0301 [id number] Information not available 06/13/2022 Do You Have Smoke And Carbon Monoxide Detectors In Your Home? Yes MIGRATION.0301 036256 Information not available 06/13/2022 At What Age Did You Start Smoking Tobacco? 12 Information not available 07/13/2024 Are You Passively Exposed To Smoke? No MIGRATION.0301 [id number] Information not available 06/13/2022 Are There Any Smokers In Your House? No MIGRATION.0301 757499 Information not available 06/13/2022 How Much Tobacco Do You Smoke? No Was 1ppd Information not available 07/13/2024 Do You Use Sunscreen Routinely? Yes MIGRATION.0301 [id number] Information not available 06/13/2022 Has Tobacco Cessation Counseling Been Provided? No Information not available 10/31/2022 How Many Years Have You Smoked Tobacco? 32 Information not available 07/13/2024 Have You Recently Traveled Abroad? No MIGRATION.0301 [id number] Information not available 06/13/2022 Do You Have Any Dietary Restrictions? No MIGRATION.0301 339264 Information not available 06/13/2022 Sex: Unknown Functional Status Question Answer Note LastModified by Organizat ion Details LastModified Time Do you use any illicit or recreational drugs? Yes Information not available 07/27/2024 Do you or have you ever used any other forms of tobacco or nicotine? No MIGRATION.[id number] 026 Information not available 06/13/2022 What is your level of alcohol consumption? None MIGRATION.[id number] 026 Information not available 06/13/2022 Are you currently employed? Yes Information not available 07/08/2024 What is your occupation? [employer] MIGRATION.7306201 026 Information not available 06/13/2022 What is your exercise level? None MIGRATION.[id number] 026 Information not available 06/13/2022 Mental Status Question Answer Note LastModified by Organizat ion Details LastModified Time Do you feel stressed (tense, restless, nervous, or anxious, or unable to sleep at night)? [id number] MIGRATION.[id number] Information not available 06/13/2022 Family History Relationship Description Onset Age of this Age Resolved Age Notes LastModified by Organization Details LastModified Time Mother Diabetes mellitus MIGRATION.458 [id number] Not available 06/13/2022 16:10:59 Mother Hypertensive disorder MIGRATION.816 [id number] Not available 06/13/2022 16:10:59 Mother Malignant tumor of breast MIGRATION.595 [id number] Not available 06/13/2022 16:10:59 Father Diabetes mellitus MIGRATION.381 [id number] Not available 06/13/2022 16:10:59 Father Hypertensive disorder MIGRATION.366 [id number] Not available 06/13/2022 16:10:59 Sister Malignant tumor of cervix MIGRATION.294 [id number] Not available 06/13/2022 16:10:59 Medical History Condition Response ARTHRITIS Y DIABETES, TYPE Y INSOMNIA Y HIGH CHOLESTEROL / HYPERLIPIDEMIA Y SURGERY Y EDEMA Y HYPOTHYROIDISM Y DEPRESSION (INCLUDING POST ) Y THYROID DISEASE Y DIZZINESS Y KIDNEY DISEASE Y LIVER DISEASE Y HYPERTENSION Y OBESITY Y EXCESSIVE PERSPIRATION Y GERD/NAUSEA Y AUTOIMMUNE DISEASE Y Gynecological History Statement/Question Response How many live births 4 Date of Last Colonoscopy Date of Last Mammogram Date of LMP Most Recent Bone Density Date of Last Pap Current Control Method Hysterectom y Obstetrics History GPAL:G 4 P 4 0 0 4 Type Value Multiple Births 0 Full Term 4 Induced 0 Spontaneous 0 Premature 0 Living 4 Ectopics 0 Total 4 Immunizations Vaccine Type Date Status Note Provider Nam e and Address Organization Details Recorded Time Influenza, MDCK, quadrivalent, preservative 3 completed Elena Castillo RMA patti, [facility] 02/27/2023 16:03:19 Pneumococcal conjugate PCV20, polysaccharide [id number] conjugate, adjuvant, PF 3 completed CARMEL Jackson, [facility] 02/27/2023 16:03:34 COVID-19, mRNA, LNP-S, PF, 50 mcg/0.5 mL 3 completed CARMEL Jackson, [facility] 02/27/2023 16:03:51 COVID-19, mRNA, LNP-S, PF, 30 mcg/0.3 mL dose 1 completed SILAS Rosen, [facility] 10/16/2023 14:09:01 COVID-19, mRNA, LNP-S, PF, 30 mcg/0.3 mL dose, salo-sucrose 2 completed SILAS Rosen, [facility] 10/16/2023 14:09:01 COVID-19, mRNA, LNP-S, bivalent, PF, 50 mcg/0.5 mL or 25mcg/0.25 mL dose 2 completed SILAS Rosen, [facility] 10/16/2023 14:09:01 Influenza, split virus, trivalent, preservative 2 completed SILAS Rosen, [facility] 10/16/2023 14:09:01 Influenza, split virus, trivalent, PF 4 completed Nolberto Davis MD [address] [place] [address], [address], [address], [facility] 03/18/2024 14:06:57 COVID-19 mRNA, bivalent, original/Omicron BA.1, Non-US Vaccine (Spikevax Bivalent), Moderna 2 completed Not Available [facility] 06/13/2022 16:12:38 COVID-19 mRNA, bivalent, original/Omicron BA.1, Non-US Vaccine Product, Silverpopech 2 completed Not Available [facility] 06/13/2022 16:12:38 COVID-19, mRNA, LNP-S, PF, 30 mcg/0.3 mL dose 1 completed Pedro Pearce LPN null, [employer] 10/16/2023 14:09:01 COVID-19, mRNA, LNP-S, PF, 30 mcg/0.3 mL dose 0 completed SILAS Rosen, [employer] 10/16/2023 14:09:01 Tdap 3 completed Not Available [facility] 06/13/2022 16:12:39 Past Encounters Encounter ID Performer Location Encounter Start Date Encounter Closed Date Diagnosis/Indication Diagnosis SNOMED-CT Code Diagnosis ICD10 Code Diagnosis Note [id number] Nolberto lazo MD [facility] Internal [facility] [address] [place] [address] 04/18/2022 00:00:00 05/09/2022 13:36:10 [id number] Nolberto lazo MD [facility] Internal [address] [place] [address] 06/27/2022 16:22:32 06/27/2022 17:15:14 Screening - NAD 527078560 Z13.9 C-scope: Get the report, had this [...] ing of the above Screening mammography 24 245545 Z12.31 Screening for osteoporosis 083622179 Z13.820 Type 2 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 007384079 E11.9 On farxigaGet labs Ex-smoker 6541850 Z87.[address] Nova: 08/29/2021 : Cat2 next in one year Asthma 772639820 J45.90 9 On proairOn anoroDoes well Moderate r ecurrent major depression 56421223 F33.1 Not suicidal or homicidalO n duloxetine 60mg dailyOn amitriptyl ine 10mg 2 tabs at bedtimeDoe s well on these medication s Chronic ki dney disease 445111072 N18.[address] Dimitri salmeron d weeklyIs now to see Dr Earl referred by Dr Durán IJ Essential hypertension 30865212 I10 On amlodipine 2.5mg dailyOn HCTZ 25mg dailyOn ibesartan 300mg dailyOn metoprolol ER 100mg dailyOn K Er 10meq daily Get labs Low back pain 667230653 M54.50 On flexerillI s to see Dr Sonya Nelson for a +ve JOSE JUAN test Hyperlipidemia 25721999 E78.5 On rosuvastat in 40mg dailyGet labs [id number] Karina Pena MD [facility] [place] [address] [place] [address] 08/16/2022 09:35:44 08/16/2022 10:46:27 Hypothyroidism 95700910 E03.9 FT4 low with heterogene ous gland [...] minerals and reduce inflammati on. Essential hypertension 76883980 I10 Patient is on multiple medication s [...] she chooses to go outside of the [facility] to obtain labwork she was [...] ing. Thank you for this consultati on. [id number] Nolberto lazo MD [facility] [place] [address] [facility] [place] [address] 10/31/2022 16:20:28 10/31/2022 17:26:21 Screening - NAD 737922575 Z13.9 C-scope: Get the report, had this [...] Type 2 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 725249306 E11.9 On farxigaGet labs Ex-smoker 9965366 Z87.[address] Nova: 08/29/2021 : Cat2 next in one yearLDCT 10/20/2022 Asthma 094822526 J45.90 9 On proairOn singulair 10mg dailyNot on anoroDoes well Moderate r ecurrent major depression 84026198 F33.1 Not suicidal or homicidalO n duloxetine 60mg dailyOn amitriptyl ine 10mg 2 tabs at bedtimeDoe s well on these medication s Chronic ki dney disease 569054240 N18.[address] Mosley vit d weeklyIs now to see Dr Earl referred by Dr Durán IJ Essential hypertension 64936167 I10 On amlodipine 2.5mg dailyOn lasix 20mg dailyOn magOn HCTZ 25mg dailyOn ibesartan 300mg dailyOn metoprolol ER 100mg dailyOn K Er 10meq daily Get labsSeen Dr Pena Low back pain 964777309 M54.50 On flexerillI s to see Dr Sonya Nelson for a +ve JOSE JUAN test Hyperlipidemia 40416723 E78.5 On rosuvastat in 40mg dailyGet labs Hypothyroidism 93610094 E03.9 US thyroid 06/04/2022 : Next in one year, one nodule is 9mm, can see ENT to see if this needs biopsy On unithyroid 75mcgs dailyDr Pena 08/16/2022 , next 01/15/2023 Skin lesion 60451846 L98 .9 Small flat dark lesion noted on the posterior mid lower leg and also red raised bump noted on the natalie elbowsRefe r to dermatolog y Pain of bi lateral hands 0921523836 5216051 M79.641 M79.642 Get a referral to get EMG/NCV done+ve Phalens and Tinels L>R [id number] Karina Pena MD [facility] [place] [address] [place] [address] 01/15/2023 14:36:16 01/15/2023 15:20:18 Hypothyroidism 99879029 E03.9 FT4 now in ideal range- continue [...] and minerals and reduce inflammati on. Prediabetes 276184759 R7 3.03 A1C of 6.1%- she has [...] Recommende d she incorporat e natural insulin controlled atmospheric furnace brazer s such as pears, apples, cinnamon, mariam [...] answered and refills necessary at visit today. [id number] Nolberto lazo MD [facility] [address] [facility] [place] [address] 02/27/2023 15:39:12 02/27/2023 16:21:57 Screening - NAD 589901247 Z13.9 C-scope: Get the report, had this [...] Type 2 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 174377994 E11.9 On farxigaGet Regina Pena 01/15/2023 Ex-smoker 4808139 Z87.[address] Nova: 08/29/2021 : Cat2 next in one yearLDCT 10/20/2022 Asthma 431768446 J45.90 9 On proairOn singulair 10mg dailyNot on anoroDoes well Moderate r ecurrent major depression 66680770 F33.1 Not suicidal or homicidalO n duloxetine 60mg dailyOn amitriptyl ine 10mg 2 tabs at bedtimeDoe s well on these medication s Chronic ki dney disease 698976853 N18.[address] Mosley vit d weeklyOn calcitriol Is now to see Dr Earl referred by Dr Surjit MACIAS Essential hypertension 03170595 I10 On amlodipine 2.5mg dailyOn lasix 20mg dailyOn magNot on HCTZ 25mg dailyOn ibesartan 300mg dailyOn metoprolol ER 100mg dailyOn K Er 10meq daily Get labsSeen Dr Lorene Lynn SL 12/28/2022 , f/u in one month Low back pain 244350018 M54.50 On flexerillI s to see Dr Sonya Nelson for a +ve JOSE JUAN test Hyperlipidemia 36803995 E78.5 On rosuvastat in 40mg dailyGet labs Hypothyroidism 85714716 E03.9 US thyroid 06/04/2022 : Next in one year, one nodule is 9mm, can see ENT to see if this needs biopsy On unithyroid 75mcgs dailyDr Jean 08/16/2022 , 01/15/2023 Skin lesion 37228400 L98 .9 Small flat dark lesion noted on the posterior mid lower leg and also red raised bump noted on the natalie elbowsRefe r to dermatolog y Pain of bi lateral hands 2026060508 6505690 M79.641 M79.642 Get a referral to get EMG/NCV done+ve Phalens and Tinels L>R Anti-nucle ar factor detected 072963123 R76.[address] Nelson will now get a second opinion with Scott U rheumatolo gy [id number] Nolberto lazo MD [facility] [place] [address] [facility] [place] [address] 07/01/2023 09:32:35 07/01/2023 10:17:34 Screening - NAD 229926444 Z13.9 C-scope: Get the report, had this [...] Type 2 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 130123713 E11.9 On farxiga 10mg dailyGet labsDr Jean 01/15/2023 Ex-smoker 4540785 Z87.[address] Nova: 08/29/2021 : Cat2 next in one yearLDCT 10/20/2022 Asthma 059302275 J45.90 9 On proairOn singulair 10mg dailyNot on anoroDoes well Moderate r ecurrent major depression 50277289 F33.1 Not suicidal or homicidalO n duloxetine 60mg dailyOn amitriptyl ine 10mg 2 tabs at bedtimeDoe s well on these medication sDeclined any psychiatry referrals Chronic ki dney disease 937109052 N18.[address] Mosley vit d weeklyOn calcitriol Is now to see Dr Earl referred by Dr Surjit MACIAS Essential hypertension 46257242 I10 On amlodipine 2.5mg dailyOn lasix 20mg dailyOn magNot on HCTZ 25mg dailyOn ibesartan 300mg dailyOn metoprolol ER 100mg dailyOn K Er 10meq daily Get labsSeen Dr Lorene Lynn [facility] 12/28/2022 , f/u in one monthDr Lynn 03/29/2023 Sleep study 04/22/2023 : Neg Low back pain 673491324 M54.50 On flexerillI s to see Dr Sonya Nelson for a +ve JOSE JUAN test Hyperlipidemia 69988403 E78.5 On rosuvastat in 40mg dailyGet labs Hypothyroidism 33387186 E03.9 US thyroid 06/04/2022 : Next in one year, one nodule is 9mm, can see ENT to see if this needs biopsy On unithyroid 75mcgs dailyDr Pena 08/16/2022 , 01/15/2023 Skin lesion 12436259 L98 .9 Small flat dark lesion noted on the posterior mid lower leg and also red raised bump noted on the natalie elbowsRefe r to dermatolog y Pain of bi lateral hands 6561984239 8180631 M79.641 M79.642 Get a referral to get EMG/NCV done+ve Phalens and Tinels L>R, but she has refused to have the EMG see case 04/10/[address] Goodson ortho now 07/01/2023 Anti-nucle ar factor detected 889826692 R76.[address] Nelson will now get a second opinion with Scott U rheumatolo gy Screening mammography 24 780072 Z12.31 [id number] Nolberto lazo MD [facility] [place] [address] [facility] [place] [address] 10/23/2023 09:49:31 10/23/2023 10:20:18 Screening - NAD 932432528 Z13.9 C-scope: Get the report, had this [...] Type 2 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 292640957 E11.9 On farxiga 10mg dailyOn ozempicGet Regina Pena 01/15/2023 Ex-smoker 5313612 Z87.[address] Nova: 08/29/2021 : Cat2 next in one yearLDCT 10/20/2022 LDCT 10/22/2023 Asthma 033211372 J45.90 9 On proair given by Surendra Small NPOn singulair 10mg dailyOn Symbicort Surendra Small [employer] [facility] 08/08/2023 , f/u in 3-4 monthsNot on anoroDoes well Moderate r ecurrent major depression 09466207 F33.1 Not suicidal or homicidalO n duloxetine 60mg dailyOn amitriptyl ine 10mg 2 tabs at bedtimeDoe s well on these medication sDeclined any psychiatry referrals Chronic ki dney disease 781805130 N18.[address] Mosley vit d weeklyOn calcitriol Is now to see Dr Earl referred by Dr Surjit MACIAS Essential hypertension 88111050 I10 On amlodipine 2.5mg dailyOn lasix 20mg dailyOn magNot on HCTZ 25mg dailyOn ibesartan 300mg dailyOn metoprolol ER 100mg dailyOn K ER 10meq daily Get labsSeen Dr Lorene Lynn [facility] 12/28/2022 , f/u in one monthDr Lynn 03/29/2023 Sleep study 04/22/2023 : Neg Low back pain 211695203 M54.50 On flexerillD id see Dr Sonya Nelson for a +ve JOSE JUAN test Hyperlipidemia 44938192 E78.5 On rosuvastat in 40mg dailyGet labs Hypothyroidism 86248709 E03.9 US thyroid 06/04/2022 : Next in one year, one nodule is 9mm, can see ENT to see if this needs biopsy On unithyroid 75mcgs dailyDr Pena 08/16/2022 , 01/15/2023 US thyroid 09/27/2023 : Small thyroid nodules, next in one yearReferr ed to ENT Skin lesion 63134478 L98 .9 Small flat dark lesion noted on the posterior mid lower leg and also red raised bump noted on the natalie elbowsKeep apts with dermatolog y Pain of bi lateral hands 9995858487 2820123 M79.641 M79.642 Get a referral to get EMG/NCV done+ve Phalens and Tinels L>R, but she has refused to have the EMG see case 04/10/[address] Kellee fish now 07/01/2023 Anti-nucle ar factor detected 787051391 R76.[address] Nelson who has left the [facility] U did not contact herWill now refer to Dr Thomas Screening mammography 24 957336 Z12.31 Thyroid nodule 970340326 E04.1 thyroid 09/27/2023 : Small thyroid nodules, next in one yearReferr ed to ENT [id number] Nolberto lazo MD [facility] [place] [address] [facility] [place] [address] 11/27/2023 09:33:52 11/27/2023 10:04:16 Type 2 diabetes mellitus without complication 788202910 E11.9 On farxiga 10mg dailyNot on ozempicOn Mounjaro, explained use of this medicine and its side effects, no hx of MEN2 or MCT or thyroid or parathyroi d complaints 11/27/20[address] labsDr Wood 01/15/2023 Screening - NAD 10506416 3 Z13.9 C-scope: Get the report, had [...] her understand ing of the above Ex-smoker 3239715 Z87.[address] Nova: 08/29/2021 : Cat2 next in one yearLDCT 10/20/2022 LDCT 10/22/2023 Asthma 627433130 J45.90 9 On proair given by Surendra Small NPOn singulair 10mg dailyOn Symbicort Surendra Small [employer] [facility] 08/08/2023 , f/u in 3-4 monthsNot on anoroDoes well Moderate r ecurrent major depression 91335617 F33.1 Not suicidal or homicidalO n duloxetine 60mg dailyOn amitriptyl ine 10mg 2 tabs at bedtimeDoe s well on these medication sDeclined any psychiatry referrals Chronic ki dney disease 150141359 N18.[address] Mosley vit d weeklyOn calcitriol Is now to see Dr Earl referred by Dr Surjit MACIAS Essential hypertension 76737750 I10 On amlodipine 2.5mg dailyOn lasix 20mg dailyOn magNot on HCTZ 25mg dailyOn ibesartan 300mg dailyOn metoprolol ER 100mg dailyOn K ER 10meq daily Get labsSeen Dr Lorene Lynn [facility] 12/28/2022 , f/u in one monthDr Shane 03/29/2023 Sleep study 04/22/2023 : Neg Low back pain 065889844 M54.50 On flexerillD id see Dr Sonya Nelson for a +ve JOSE JUAN test Hyperlipidemia 39653128 E78.5 On rosuvastat in 40mg dailyGet labs Hypothyroidism 24100944 E03.9 US thyroid 06/04/2022 : Next in one year, one nodule is 9mm, can see ENT to see if this needs biopsy On unithyroid 75mcgs dailyDr Pena 08/16/2022 , 01/15/2023 US thyroid 09/27/2023 : Small thyroid nodules, next in one yearReferr ed to ENT Skin lesion 53261035 L98 .9 Small flat dark lesion noted on the posterior mid lower leg and also red raised bump noted on the natalie elbowsKeep apts with dermatolog y Pain of bi lateral hands 5178122478 7373988 M79.641 M79.642 Get a referral to get EMG/NCV done+ve Phalens and Tinels L>R, but she has refused to have the EMG see case 04/10/[address] Kellee fish now 07/01/2023 Anti-nucle ar factor detected 097126843 R76.[address] Nelson who has left the [facility] U did not contact herWill now refer to Dr Thomas Screening mammography 24 878621 Z12.31 Thyroid nodule 689227147 E04.1 US thyroid 09/27/2023 : Small thyroid nodules, next in one yearReferr ed to ENT [id number] Nolberto lazo MD [facility] [address] [facility] [address] [place] [address] 03/18/2024 09:45:32 03/18/2024 10:32:49 Type 2 diabetes mellitus without complication 765584781 E11.9 On farxiga 10mg dailyNot on ozempicOn Mounjaro, explained use of this medicine and its side effects, no hx of MEN2 or MCT or thyroid or parathyroi d complaints 11/27/[address] labsDr Wood 01/15/2023 Screening - NAD 86019300 3 Z13.9 C-scope: Get the report, had [...] her understand ing of the above Ex-smoker 6884475 Z87.[address] Nova: 08/29/2021 : Cat2 next in one yearLDCT 10/20/2022 LDCT 10/22/2023 Asthma 402802343 J45.90 9 On proair given by Surendra Small NPOn singulair 10mg dailyOn Symbicort Susi Tarango Not on anoroDoes well Moderate r ecurrent major depression 13801425 F33.1 Not suicidal or homicidalO n duloxetine 60mg dailyOn amitriptyl ine 10mg 1 tabs at bedtimeDoe s well on these medication sDeclined any psychiatry referrals Chronic ki dney disease 131337416 N18.[address] Mosley vit d weeklyOn calcitriol Will refer to Dr Perez as missed her apt with Dr Surjit MACIAS 03/18/2024 and she would like a second opinion Essential hypertension 43756724 I10 On amlodipine 2.5mg dailyOn lasix 20mg dailyOn magNot on HCTZ 25mg dailyOn ibesartan 300mg dailyOn metoprolol ER 100mg dailyOn K ER 10meq daily Get labsSeen Dr Lorene Lynn [facility] 12/28/2022 , f/u in one monthDr Lynn 03/29/2023 Sleep study 04/22/2023 : Neg Low back pain 264137220 M54.50 On flexerillD id see Dr Sonya Nelson for a +ve JOSE JUAN test Hyperlipidemia 97952659 E78.5 On rosuvastat in 40mg dailyGet labs Hypothyroidism 19077709 E03.9 US thyroid 06/04/2022 : Next in one year, one nodule is 9mm, can see ENT to see if this needs biopsy On unithyroid 75mcgs dailyDr Pena 08/16/2022 , 01/15/2023 US thyroid 09/27/2023 : Small thyroid nodules, next in one yearReferr ed to ENT Skin lesion 33628265 L98 .9 Small flat dark lesion noted on the posterior mid lower leg and also red raised bump noted on the natalie elbowsKeep apts with dermatolog y Pain of bi lateral hands 1910550030 1614602 M79.641 M79.642 Get a referral to get EMG/NCV done+ve Phalens and Tinels L>R, but she has refused to have the EMG see case 04/10/[address] Kellee fish now 07/01/2023 , referred again 03/18/2024 Anti-nucle ar factor detected 132575408 R76.[address] [place] [facility] did not contact herWill now refer to Dr Martha Welch 02/07/2024 , f/u PRN, diagnosed with OA Thyroid nodule 324885257 E04.1 US thyroid 09/27/2023 : Small thyroid nodules, next in one yearReferr ed to ENT Screening for osteoporosis 718615310 Z13.820 Administra tion of influenza vaccine 07928504 Z23 8790570 Nolberto lazo MD [facility] [address] [place] [address] 07/08/2024 09:44:07 07/08/2024 10:29:33 Type 2 diabetes mellitus without complication 843082238 E11.9 On farxiga 10mg dailyNot on ozempicOn Mounjaro, explained use of this medicine and its side effects, no hx of MEN2 or MCT or thyroid or parathyroi d complaints Get labsDr Wood 01/15/2023 Screening - NAD [id number] 3 Z13.9 C-scope: Get the report, had [...] her understand ing of the above Ex-smoker 6422701 Z87.[address] Nova: 08/29/2021 : Cat2 next in one yearLDCT 10/20/2022 LDCT 10/22/2023 Asthma 108493687 J45.90 9 On proair given by uSrendra Small NPOn singulair 10mg dailyOn Symbicort Susi Tarango Does well Moderate r ecurrent major depression 55784484 F33.1 Not suicidal or homicidalO n duloxetine 60mg dailyOn amitriptyl ine 10mg 1 tabs at bedtimeDoe s well on these medication sDeclined any psychiatry referrals Chronic ki dney disease 261038080 N18.[address] Mosley vit d weeklyOn calcitriol Now sees Dr Hernandez kidneys 06/12/2024 : Dr Perez Essential hypertension 25684481 I10 Not on amlodipine 2.5mg dailyOn lasix 20mg dailyOn magNot on HCTZ 25mg dailyOn ibesartan 300mg dailyOn metoprolol ER 100mg dailyOn K ER 10meq daily Get labsSeen Dr Lorene Lynn [facility] 12/28/2022 , f/u in one monthDr Lynn 03/29/2023 Sleep study 04/22/2023 : Neg Low back pain 656642743 M54.50 On flexerillD id see Dr Sonya Nelson for a +ve JOSE JUAN test Annmarie Welch PA rhuematolo gy 02/07/2024 , diagnosed with OA, f/u PRN Hyperlipidemia 09757957 E78.5 On rosuvastat in 40mg dailyGet labs Hypothyroidism 95777985 E03.9 US thyroid 06/04/2022 : Next in one year, one nodule is 9mm, can see ENT to see if this needs biopsy On unithyroid 75mcgs dailyDr Jean 08/16/2022 , 01/15/2023 US thyroid 09/27/2023 : Small thyroid nodules, next in one yearReferr ed to ENT Skin lesion 29418536 L98 .9 Small flat dark lesion noted on the posterior mid lower leg and also red raised bump noted on the natalie elbowsKeep apts with dermatolog y Pain of bi lateral hands [id number] 0394883 M79.641 M79.642 Get a referral to get EMG/NCV done+ve Phalens and Tinels L>R, but she has refused to have the EMG see case 04/10/[address] Kellee fish now 07/01/2023 , referred again 03/18/2024 , 07/08/2024 Anti-nucle ar factor detected 595301602 R76.[address] Nelson who has left the [facility] did not contact herWill now refer to Dr Martha Welch 02/07/2024 , f/u PRN, diagnosed with OA Thyroid nodule 932173714 E04.1 US thyroid 09/27/2023 : Small thyroid nodules, next in one yearReferr ed to ENT Postmenopausal state 764 28031 Z78.0 [id number] Nolberto lazo MD [facility] [address] [place] [address] 07/27/2024 15:19:04 07/27/2024 16:46:33 Low back pain 262789880 M54.50 On flexerillD id see Dr Sonya Nelson for a +ve JOSE JUAN test Annmarie cartermatoaleisha gy 02/07/2024 , diagnosed with OA, f/u PRN OV 07/27/2024 :Get Xrays LS SpineCan do flexerill and meloxicamN otify if not betterER if worse, she and her did verbalize her understand ing of the above [id number] Nolberto lazo MD [facility] [address] [place] [address] 09/09/2024 14:40:38 09/09/2024 15:04:39 Pain of left shoulder joint [id number] 2444497 M25.512 Get xray L shoulderGe t on meloxicamI f not better will need to see orthoER if worse, she is very appreciati ve to this plan of care Addendum: 09/09/2024 :Xray neg case sent Health Concerns Section Related Observation LastModified by Organization Detai ls LastModified Time None Recorded Concern Status LastModified by Organization Details LastModified Time None Recorded Advance Directives Directive None Recorded Payers Insurance Date Sequence Insurance Name Policy Number Policy Betts Covered Member ID Betts Member ID Guarantor Name 09/08/2024 1 [facility] [id number] Alie Martinez Mohan [id number] Alie Mohan Notes Date Note Type Note Provider Name and Address Organization Details Recorded Time 11/27/2023 text/html OV 04/18/2022:He re to establish carePast Hx:HTNDMIIReviewed social family and surgical historyHere to discuss above, get labs OV 06/27/2022:Here for her f/u apt, she did do the labsNow sees Dr Durán IJ and also is to see Dr Earl [...] effects Nolberto Davis MD [address], [place] [address], [place], [address], [facility] [employer] 11/27/2023 10:07:58 03/18/2024 text/html OV 04/18/2022:He re to establish carePast [...] do the labs Nolberto Davis MD [address] [facility], [facility] [address], [place], [address], [facility] [employer] 03/18/2024 14:07:38 07/08/2024 text/html OV 04/18/2022:He re to establish carePast [...] today, she did do the labs OV 07/08/2024: Here for her f/u apt, she feels well today, she did do the labs and has now seen Dr Chris Davsi MD [address] [facility], [facility] [address], [place], [address], [facility] 07/08/2024 10:29:52 07/27/2024 text/html OV 04/18/2022:He re to establish carePast [...] today, she did do the labs OV 07/08/2024: Here for her f/u apt, she feels well today, she did do the labs and has now seen Dr Ascencio 07/27/2024:ACV LBP, was lifting concrete barrier at her yard, now has acute LBP, shooting down the legs, no N/T or weakness and no loss of bowel or baldder control Nolberto Davis MD [address] [place] [address], [place] [address], [place], [address], [facility] [employer] 07/27/2024 18:57:35 09/09/2024 text/html OV 04/18/2022:He re to establish carePast [...] today, she did do the labs OV 07/08/2024: Here for her f/u apt, she feels well today, she did do the labs and has now seen Dr Perez OV 07/27/2024:ACV LBP, was lifting concrete barrier at her yard, now has acute LBP, shooting down the legs, no N/T or weakness and no loss of bowel or baldder control OV 09/09/2024: ACV: Left shoulder painC/o L shoulder pain, achy, no radiation, no known injury, no N/T or weakness Nolberto Davis MD [address] [place] [address] [place], [facility] [address], [place], [address], [facility] 09/09/2024 18:48:00 OBGyn Episode No OBEpisode recorded.
--- OUTSIDE RECORDS SUMMARY | 2024-10-31 10:02 | XMS_ITS | Clinical Summary ---
Author Organization [facility] Address [address] [place] [address] Phone Care Team Providers Care Steam Locomotive Firer/Fireman Name Role Phone Quinton Nova MD Primary Care Provider [phone] Allergies Active Allergy Reactions Criticality Noted Date Comments Codeine Unknown 03/04/2017 Medications VITAMIN D2 50,000 unit capsule Take 50,000 Units by mouth every 7 days. 02/15/2017 Active RAKESH-D 24 HOUR 180-240 mg tablet Take by mouth daily. 5 01/25/2017 Active amitriptyline (ELAVIL) 10 mg tablet Take 10 mg by mouth daily at bedtime. 02/06/2017 Active buPROPion HCl (WELLBUTRIN XL) 300 mg Extended Release 24 hour tablet Take 300 mg by mouth daily. 02/06/2017 Active ibuprofen (MOTRIN) 200 mg tablet Take 800 mg by mouth every 12 hours. Active Active Problems Problem Noted Date Diagnosed Date White matter abnormality on MRI of brain 017 Family History Medical History Relation Name Comments Diabetes Father Hypertension Father Peripheral Neuropathy Father Diabetes Maternal Grandmother Hypertension Maternal Grandmother Cancer Mother Diabetes Mother Heart Disease Mother Hypertension Mother Other Mother Myopathy Peripheral Neuropathy Mother Diabetes Paternal Grandmother Cancer Sister 1 Diabetes Sister 1 Heart Disease Sister 1 Hypertension Sister 1 Relation Name Status Comments Brother 1 Alive Brother 2 Alive Father Alive Maternal Grandmother Mother Alive Paternal Grandmother Sister 1 Alive Sister 2 Alive Social History Tobacco Use Types Packs/Day Years Used Date Smoking Tobacco: Former Smokeless Tobacco: Never Alcohol Use Standard Drinks/Week Comments No 0 (1 standard drink = 0.6 oz pur e alcohol) Comments Unknown Sex and Gender Information Value Date Recorded Sex Assigned at Not on file Legal Sex Female 2:03 PM MANAGER MACHINE Gender Identity Not on file Sexual Orientation Not on file Last Filed Vital Signs Vital Sign Reading Time Taken Comments Blood Pressure 138/78 03/04/2017 8:48 AM MANAGER MACHINE Pulse 59 03/04/2017 8:48 AM MANAGER MACHINE Temperature - - Respiratory Rate - - Oxygen Saturation - - Inhaled Oxygen Concentration - - Weight 93.9 kg (207 lb) 03/04/2017 8:48 AM MANAGER MACHINE Height 160 cm (5' 3) 03/04/2017 8:48 AM MANAGER MACHINE Body Mass Index 36.67 03/04/2017 8:48 AM MANAGER MACHINE Plan of Treatment Health Maintenance Due Date Last Done Comments DTAP/TDAP/TD VACCINES (1 - Tdap) 1987 HEPATITIS B VACCINES (1 of 3 - 19+ 3-dose series) 10/1987 HPV/Cotest (21-29) 1989 CERVICAL CANCER SCREENING 1998 HPV/Cotest (30-65) 1998 PAP SMEAR 1998 BREAST CANCER SCREENING 2008 COLORECTAL SCREENING 2013 Colorectal Cancer Screening 2013 FIT-DNA Q 3 years 2013 FIT/FOBT Q 1 year 2013 Flex Sig/CT Colonography Q 5 years 2013 ZOSTER VACCINE (1 of 2) 2018 INFLUENZA VACCINE (#1) 2024 Insurance [facility] [id number] Care Teams Steam Locomotive Firer/Fireman Relationship Specialty Start Date End Date Quinton Nova MD [address] [place] [id number] PCP - General Family Practice 03/04/17
--- OUTSIDE RECORDS SUMMARY | 2024-10-31 10:02 | XMS_ITS ---
Author Organization [facility] Address [address] [facility] [address] [facility] [address] [place] [address] Care Team Providers Care Electric Fork Operator Name Role Phone Geo Eddy Unavailable [phone] Encounters Encounter Location Date Provider Diagnosis [place] [facility] [address] [facility] [address] [place] [address] 01/22/2024 Geo Eddy Plan Of Treatment No Information Progress Notes * MINDI ALONZOHDOB: [birth year] (54 yo F)Acc No.[id number]:01/22/2024 Progress Notes Patient: TORI WATTS Provider: Lenny HEART MD, Umu.Colette.C.P, F.A.S.N. :1970 A ge:53 Y S ex:Female Date:01/22/2024 Address:[address] [place], [place] [address] Subjective: * Chief Complaints: * * Medical History: Objective: * Vitals: Assessment: Plan: * Treatment: * Billing Information: * Visit Code: * Procedure Codes: * Electronic signature of Bailey Eddy MD on 10/31/2024 at 10:02 AM CDT Sign off status: Pending * Provider: Lenny HEART MD, F.Colette.C.P, F.A.S.N. Date: Generated for Printing/Faxing/eTransmitting on: 10/31/2024 10:02 AM CDT
--- OUTSIDE RECORDS SUMMARY | 2024-10-31 10:03 | XMS_ITS ---
Author Organization [facility] Address [address] [facility] [address] [facility] [address] [place] [address] Care Team Providers Care Shoe Shiner Name Role Phone Surjit Geo Unavailable [phone] Medications Medication SIG (Take, Route, Frequency, Duration) Notes Start Date End Date Status Calcitriol 0.25 MCG 1 capsule Orally Thr ee times a day; Duration: 90 day(s) Active Vitamin D (Ergocalciferol) 1.25 MG (88119 UT) TAKE 1 CAPSULE BY MOUTH WEEKLY; Duration: 90 Active Ozempic (0.25 or 0.5 MG/DOSE) 2 MG/3ML as directed Subcutaneous once a week; Duration: 90 days 03/01/2023 02/24/2024 Active Furosemide 20 MG TAKE 1 TABLET BY DEREK TH ONCE DAILY; Duration: 90 Active Encounters Encounter Location Date Provider Diagnosis [place] [facility] [address] [facility] [address] [place] [address] 10/23/2023 Geo Eddy Chronic kidney disea se, [...] * MINDI ALONZOHDOB: [birth year] (54 yo F)Acc No.[id number]:10/23/2023 Progress Notes Patient: TORI WATTS Provider: Lenny HEART MD, Umu.Colette.Manuel.P, F.A.S.N. :1970 A ge:53 Y S ex:Female Date:10/23/2023 Address:[address] [place] [address] Subjective: * Chief Complaints: * * Medical History: * Medications: T aking Furosemide 20 MG Tablet TAKE 1 TABLET BY MOUTH ONCE DAILY , Taking Ozempic (0.25 or 0.5 MG/DOSE) 2 MG/3ML Solution Pen-injector as directed Subcutaneous once a week , stop date 02/24/2024, Taking Vitamin D (Ergocalciferol) 1.25 MG (44261 UT) Capsule TAKE 1 CAPSULE BY MOUTH [...] Treatment: * Billing Information: * Visit Code: 50398 Office Visit, Est Pt., Level 4. * Procedure Codes: * Electronic signature of Bailey Eddy MD on 10/31/2024 at 10:02 AM CDT Sign off status: Pending * Provider: Lenny HEART MD, F.Colette.C.P, F.A.S.N. Date: 10/23/2023 Generated for Printing/Faxing/eTransmitting on: 10/31/2024 10:02 AM CDT
--- OUTSIDE RECORDS SUMMARY | 2024-10-31 10:03 | XMS_ITS | Referral Summary ---
Author Organization [facility] at [facility] [place] Address [address] [place] [address] Care Team Providers Care Newsperson Name Role Phone Duglas Davis MD Primary Care Provide r Heri Thomas MD Unavailable [phone] Allergies No known active allergies Medications budesonide-formo teroL (SYMBICORT) 160-4.5 mcg/actuation inhaler Inhale 2 puffs 2 (two) times a day Rinse mouth with water after use. Do not swallow. Active albuterol HFA (PROVENTIL HFA,VENTOLIN HFA,PROAIR HFA) 90 mcg/actuation inhaler Inhale 2 puffs every 6 (six) hours as needed for wheezing Active nortriptyline (PAMELOR) 10 mg capsule Take 1 capsule (10 mg total) by mouth nightly Active omeprazole (PriLOSEC) 20 mg capsule Take 1 capsule (20 mg total) by mouth daily Active amLODIPine (NORVASC) 2.5 mg tablet Take 1 tablet (2.5 mg total) by mouth daily Active irbesartan (AVAPRO) 300 mg tablet Take 1 tablet (300 mg total) by mouth nightly Active metoprolol XL (TOPROL-XL) 100 mg 24 hr tablet Take 1 tablet (100 mg total) by mouth daily Active rosuvastatin (CRESTOR) 40 mg tablet Take 1 tablet (40 mg total) by mouth daily Active calcitRIOL (ROCALTROL) 0.25 mcg capsule Take 1 capsule (0.25 mcg total) by mouth daily Active DULoxetine DR (CYMBALTA) 60 mg capsule Take 1 capsule (60 mg total) by mouth daily Active magnesium gluconate 200 mg tabletIndication s:hypomagnesemia 1 tablet (200 mg total) Active tirzepatide (Mounjaro) 5 mg/0.5 mL pen injector Inject 5 mg under the skin every 7 days Active dapagliflozin propanediol (FARXIGA) 10 mg tablet 1 tablet (10 mg total) daily Active levothyroxine (SYNTHROID) 75 mcg tablet Take 1 tablet (75 mcg total) by mouth flux mixer before breakfast Active Active Problems Problem Noted Date Diagnosed Date Low back pain 01/10/2024 Assessment & Plan (01/10/2024 3:36 PM CDT): Check lumbar and si joint xrays. Neck pain 01/10/2024 Assessment & Plan (01/10/2024 3:36 PM CDT): Check c spine xrays. Numbness and tingling in both hands 01/10/2024 Assessment & Plan (01/10/2024 3:37 PM CDT): Nl emg/nct 2020. Will observe. Bilateral hip pain 01/10/2024 Assessment & Plan (01/10/2024 3:36 PM CDT): Check bilat hip xrays. Was tender on ext palpation of hip joints so suspect bursitis. Chronic pain of both knees 01/10/2024 Assessment & Plan (01/10/2024 3:36 PM CDT): Mild bilat knee crepitus. Check bilat knee xrays. Hypermobile joints 01/10/2024 Assessment & Plan (01/10/2024 3:38 PM CDT): Hx of hypermobile joints as a child. Was able to put her foot behind her neck, do splits and touch thumbs to forearms. Informed pt of increased risk of early oa and chronic pain and to protect joints. Arthralgia 01/09/2024 Overview (01/28/2024): US right hand/wrist (01/28/24): 1) Dorsal wrist: Grade 1 power doppler. 2) Additional views of the LEFT 2nd and 3rd PIP joints reveal moderate synovial thickening without joint effusion or power doppler activity appreciated on US examination. Assessment & Plan (02/07/2024 2:04 PM CDT): Images from the original note were not included. This was a phone visit from 1:25pm to 1:55pm due to pt having covid infection. She has had chronic joint pain for 10 yrs and possible psoriasis on elbows. Had minimal joint swelling on exam at last visit. Her serologies were negative except for thyroid Ab, pt has hx of hypothyroidism and is on levothyroxine, advised her to f/u with pcp at least q 6 months to get tsh checked and make sure her levothyroxine does not need to be adjusted. Her xrays showed lumbar, foot and si joint osteoarthritis but no evidence of an inflammatory disease and no erosions. Her hand US showed minimal wrist doppler. At this time her symptoms, serologies and imaging are most compatible with osteoarthritis of thoracic, lumbar and si joints. She was advised to avoid all nsaid's due to her ckd and to discuss pain meds with her pcp. Tramadol may be an option, she was informed of potential habit forming, sedation and constipation SE but will leave this up to PCP to decide. She can also use otc tylenol 1 gram po bid. All labs and imaging were reviewed at length with pt. She can f/u with pcp now but if her symptoms worsen she was encouraged to come in. AVISE panel ---Anti-Thyroid Peroxidase 125 Mvc neg Direct israel neg Cmp---creat 1.3H Uric acid --4.7 ESR 9 Crp 3.7 Hepatitis B and C negative Left hand US 01/2024 MRI 2020 Lumbar Xray: Hip Xrays Bilat knee xrays Bilat foot xrays Cxr Bilat hand xrays Assessment & Plan (01/10/2024 3:35 PM CDT): Low cdai. Has has chronic joint pain for 10 yrs and possible psoriasis on elbows. Had minimal joint swelling on exam. Will check xrays, rt hand US and serologies and re-evaluate in 2 weeks. Her mother had psoriasis. Seen with Dr. Thomas. 1 h spent with pt today between Dr. Thomas and myself. Encounter for long-term (current) use of medicat ions 01/09/2024 Assessment & Plan (02/07/2024 1:59 PM CDT): UE emg/nct 03/03/2020 at [facility] [place]. Mother has psoriasis. Hepatitis B and C neg 01/2024 Avise panel 01/2024---Anti-Thyroid Peroxidase 125 Assessment & Plan (01/10/2024 3:36 PM CDT): UE emg/nct 03/03/2020 at [facility] [place]. Mother has psoriasis. Social History Tobacco Use Types Packs/Day Years Used Date Smoking Tobacco: Former Cigarettes 1 31 S tarted: 1983 Tobacco Cessation:Counseling Given: Not Answered Personal Safety Answer Date Recorded Getting School Help Needed Not on file 03/25 Comments Unknown Sex and Gender Information Value Date Recorded Sex Assigned at Not on file Legal Sex Female 3:49 AM RESPOOLER Gender Identity Not on file Sexual Orientation Not on file Last Filed Vital Signs Vital Sign Reading Time Taken Comments Blood Pressure 114/74 01/10/2024 9:48 AM CDT Pulse 76 01/10/2024 9:48 AM CDT Temperature - - Respiratory Rate - - Oxygen Saturation 96% 01/10/2024 9:48 AM CDT Inhaled Oxygen Concentration - - Weight 105.3 kg (232 lb 3.2 oz) 01/10/2024 9:48 AM CDT Height 152.4 cm (5') 01/10/2024 9:48 AM CDT Body Mass Index 45.35 01/10/2024 9:48 AM CDT Plan of Treatment Not on file Insurance [facility] H[facility]/PPO Address: [address] [place] Care Teams Newsperson Relationship Specialty Start Date End Date Duglas Davis MD [address] [facility] [address] [place] [address] PCP - General Internal Medicine 11/01/22 Heri Thomas MD [address] [place] [address] Consulting Physician Rheumatology 12/05/23
--- OUTSIDE RECORDS SUMMARY | 2024-10-31 10:03 | XMS_ITS | Clinical Summary ---
Author Organization [facility] at the [facility] [place] Address [address] [place] [address] Care Team Providers Care Secondary Set Up Man Name Role Phone Duglas Davis MD Primary Care Provide r Heri Thomas MD Unavailable [phone] Allergies No known active allergies Medications budesonide-formo [...] 1 tablet (75 mcg total) by mouth army manager before breakfast Active Active Problems Problem Noted [...] 1:59 PM CDT): UE emg/nct 03/03/2020 at [facility] [place]. Mother has psoriasis. Hepatitis B and C neg 01/2024 Avise panel 01/2024---Anti-Thyroid Peroxidase 125 Assessment & Plan (01/10/2024 3:36 PM CDT): UE emg/nct 03/03/2020 at [facility] [place]. Mother has psoriasis. Surgical History Surgery Date Site/Laterality Comments HYSTERECTOMY CHOLECYSTECTOMY Medical History Medical History Date Comments Asthma Insomnia Migraines GERD (gastroesophageal reflux disease) Hypertension CKD (chronic kidney disease) stage 3, GFR 30-59 ml/min (HCC) Hyperlipidemia Hypothyroid DM2 (diabetes mellitus, type 2) (HCC) Family History Medical History Relation Name Comments Diabetes type II Brother Hypertension Brother Hypertension Father Breast cancer Mother Hypertension Mother Psoriasis Mother dm2 Mother Diabetes type II Sister Hypertension Sister Relation Name Status Comments Brother Father Mother Sister Social History Tobacco Use Types Packs/Day Years Used Date Smoking Tobacco: Former Cigarettes 1 31 S tarted: 1983 Tobacco Cessation:Counseling Given: Not Answered Personal Safety Answer Date Recorded Getting School Help Needed Not on file 03/25 Comments Unknown Sex and Gender Information Value Date Recorded Sex Assigned at Not on file Legal Sex Female 3:49 AM 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 Gender Identity Not on file Sexual Orientation Not on file Obstetrics History Last Filed Vital Signs Vital Sign Reading [...] 01/10/2024 9:48 AM CDT Plan of Treatment Health Maintenance Due Date Last Done Comments Breast Cancer Screening-Mammogram 1968 Colon Cancer Screening-Colonoscopy 1968 Depression Screening 1968 Hepatitis C Screening 1968 Regular Well Visit/Exam 18-64 1986 Covid-19 Vaccine (2023-2 5 season) 2023 02/02/2023, 02/03/2022, 01/14/2022, Additional history exists Influenza Vaccine (Season Ended) 2024 02/03/20 23, 02/04/2012 DTaP/Tdap/Td Vaccine (2 - Td or Tdap) 04/18/2032 04/18/2022 Pneumococcal vaccine <65 Completed 02/02/2023 Zoster Vaccine Completed 03/15/2023, 01/14/2023 Hepatitis B Screening Completed 01/10/2024 Insurance [facility]/PPO Address: [address] [place] [facility] Care Teams Secondary Set Up Man Relationship Specialty Start Date End Date Duglas Davis MD [address] [address] PCP - General Internal Medicine 11/01/22 Heri Thomas MD [address] [place] [facility] [place] [address] Consulting Physician Rheumatology 12/05/23
== END 2024-10-31 09:59 | disposition home or self-care (01) ==
PROVIDERS: PCP Internal Medicine; Visit Provider Internal Medicine
DX: Z12.2 Encounter for screening for malignant neoplasm of respiratory organs (principal); Z87.891 Personal history of nicotine dependence; E04.1 Nontoxic single thyroid nodule
CPT/HCPCS: 71271; 76536

== ENCOUNTER 2024-11-05 15:18 | Outpatient (CLI) | payer OTHER, SELFPAY ==
--- NOTE | ~2024-11-05 | DEXA_ITS ---
Bone Density Report Name: TORI ALONZO Age: 54 Sex: Female Ethnicity: White Date of : 1970 Indication: osteopenia; asthma or emphysema; hysterectomy; Referring Provider: RyanNolberto Study: Bone densitometry was performed. Exam Date: November 05, 2024 Accession number: [id number] Bone Density: Region BMD T-score Z-score Classification AP Spine(L1-L4) 0.875 -1.6 -0.4 Osteopenia Femoral Neck (Left) 0.734 -1.0 0.1 Normal Total Hip (Left) 0.897 -0.4 0.4 Normal Femoral Neck (Right) 0.700 -1.3 -0.2 Osteopenia Total Hip (Right) 0.879 -0.5 0.2 Normal Total Hip Mean 0.888 -0.5 0.3 Normal World Health Organization criteria for BMD impression classify patients as: Normal (T-score at or above -1.0), Osteopenia (T-score between -1.0 and -2.5), or Osteoporosis (T-score at or below -2.5). 10-year Fracture Risk(1): Major Osteoporotic Fracture 6.1% Hip Fracture 0.4% Reported Risk Factors: [place] (), Neck BMD=0.700, BMI=36.0 (1) FRAX(R) Version 3.08. Fracture probability calculated for an untreated patient. Fracture probability may be lower if the patient has received treatment. Previous Exams: -- Region Exam Age BMD T-score BMD Change BMD Change Date g/cm2 vs Baseline vs Previous -- AP Spine (L1-L4) 11/05/2024 54 0.875 -1.6 -3.4%* -3.4%* 05/18/2022 52 0.906 -1.3 Total Hip(Left) 11/05/2024 54 0.897 -0.4 -7.2%* -7.2%* 05/18/2022 52 0.966 0.2 Total Hip(Right) 11/05/2024 54 0.879 -0.5 -4.5%* -4.5%* 05/18/2022 52 0.920 -0.2 -- *Denotes significance at 95% confidence level, LSC for AP Spine = 0.022 g/cm2, LSC for Total Hip = 0.027 g/cm2 Clinical Information Provided by Patient: Has used the following medications: HRT (i.e. estrogen/hormone therapy), Vitamin D, Calcium Has the following medical conditions: Asthma or Emphysema, Hysterectomy Patient maximum height was 64 Menopause Age: 35 No regular weight bearing exercise Drinks caffeinated beverages Onset of menses at age 11 Number of children 4 Impression: The patient has low bone mass, based on the Total Spine T-score. The patient has an estimated ten-year risk of hip fracture of 0.4% and an estimated ten-year risk of major fracture of 6.1%, based on the WHO FRAX algorithm. The BMD for the AP Spine (L1-L4) decreased, changing by -3.4% since the last DXA exam. The BMD for the Total Hip(Left) decreased, changing by -7.2% since the last DXA exam. The BMD for the Total Hip(Right) decreased, changing by -4.5% since the last DXA exam. Discussion: BONE DENSITY IS LOW AT ONE OR MORE SKELETAL SITES. This patient's lowest T-score is low at one or more skeletal sites. It meets the World Health Organization's (WHO) criteria for ?low bone mass? (T-score between -1.0 and -2.5). The patient's 10-year risk of fracture as calculated by FRAX is less than the threshold where pharmacological therapy is recommended by the National Osteoporosis Foundation (NOF). However, all treatment decisions require clinical judgment and consideration of individual patient factors, including patient preferences, comorbidities, previous drug use, risk factors not captured in the FRAX model (e.g., frailty, falls, vitamin D deficiency, increased bone turnover, interval significant decline in bone density) and possible under or overestimation of fracture risk by FRAX. The patient should follow a healthful lifestyle (good nutrition with adequate calcium and vitamin D, and appropriate weight-bearing exercise). Follow-Up: Consider repeating this study in 2 years to reassess this patient's status, or sooner if there is some new clinical indication. Reported by: ERIK on 11/05/2024 3:37:00 PM. Reviewed, dictated and finalized at location A.
== END 2024-11-05 15:19 | disposition home or self-care (01) ==
LOC: MICIMG 15:19
PROVIDERS: PCP Internal Medicine; Visit Provider Internal Medicine
DX: M85.89 Other specified disorders of bone density and structure, multiple sites (principal); Z13.820 Encounter for screening for osteoporosis
CPT/HCPCS: 77080

== ENCOUNTER 2024-12-07 19:25 | Emergency (ER) | payer OTHER, SELFPAY ==
--- OUTSIDE RECORDS SUMMARY | 2023-06-26 09:45 | XMS_ITS ---
Author Organization [facility] Office Address [address] [facility] [address] [facility] [address] [place] [address] Care Team Providers Care Hospice/Home Health Aide Name Role Phone Surjit Geo Unavailable [phone] Medications Medication SIG (Take, Route, Frequency, Duration) Notes Start Date End Date Status Calcitriol 0.25 MCG 1 capsule Orally Thr ee times a day; Duration: 90 day(s) 11/23/2022 08/20/2023 Active Ozempic (0.25 or 0.5 MG/DOSE) 2 MG/3ML as directed Subcutaneous once a week; Duration: 90 days 03/01/2023 02/24/2024 Active Furosemide 20 MG TAKE 1 TABLET BY ONCE DAILY; Duration: 90 Active Vitamin D (Ergocalciferol) 1.25 MG (75165 UT) TAKE 1 CAPSULE BY MOUTH WEEKLY; Duration: 90 Active Encounters Encounter Location Date Provider Diagnosis [place] [facility] [address] [facility] [address] [place] [address] 06/26/2023 Geo Eddy Chronic kidney disea se, stage 3a N18.31 ; Essential hypertension I10 ; Renal osteodystrophy N25.0 ; Secondary hyperparathyroidism, not elsewhere classified E21.1 and Vitamin D deficiency, unspecified E55.9 Assessments Encounter Date Diagnosis (ICD Code) Assessment Notes Treatment Notes Treatment Clinical Notes Section Notes 06/26/2023 Chronic kidney disease, stage 3a (ICD-10 - N18.31) 06/26/2023 Essential hypertension (ICD-10 - I10) 06/26/2023 Renal osteodystrophy (ICD-10 - N25.0) 06/26/2023 Secondary hyperparathyroidism , not elsewhere classified (ICD-10 - E21.1) 06/26/2023 Vitamin D deficiency, unspecified (ICD-10 - E55.9) Plan Of Treatment No Information Progress Notes * ZHEN ALONZOOB: [birth year] (54 yo F)Acc No.[id number]:06/26/2023 Progress Notes Patient: TORI WATTS Provider: Lenny HEART MD, F.Colette.Manuel.P, F.A.S.N. :1970 A ge:53 Y S ex:Female Date:06/26/2023 Address:[address] [place] [address] Subjective: * Chief Complaints: * * Medical History: * Medications: T aking Calcitriol 0.25 MCG Capsule 1 capsule Orally Three times a day , stop date 08/20/2023, Taking Furosemide 20 MG Tablet TAKE 1 TABLET BY MOUTH ONCE DAILY , Taking Ozempic (0.25 or 0.5 MG/DOSE) 2 MG/3ML Solution Pen-injector as directed Subcutaneous once a week , stop date 02/24/2024, Taking Vitamin D (Ergocalciferol) 1.25 MG (01414 UT) Capsule TAKE 1 CAPSULE BY MOUTH WEEKLY Objective: * Vitals: Assessment: * Assessment: 1. C hronic kidney disease, stage 3a - N18.31 2 . E ssential hypertension - I10 3 . R enal osteodystrophy - N25.0 4 . S econdary hyperparathyroidism, not elsewhere classified - E21.1 5 . V itamin D deficiency, unspecified - E55.9 Plan: * Treatment: * Billing Information: * Visit Code: 15838 Office Visit, Est Pt., Level 4. * Procedure Codes: * Electronic signature of Bailey Eddy MD on 12/07/2024 at 07:27 PM CDT Sign off status: Pending * Provider: Lenny HEART MD, Umu.Colette.Manuel.P, F.A.S.N. Date: 0 06/26/2023 Generated for Printing/Faxing/eTransmitting on: 12/07/2024 07:27 PM CDT
--- OUTSIDE RECORDS SUMMARY | 2023-10-23 09:45 | XMS_ITS ---
Author Organization [facility] Office Address [address] [facility] 61 [facility] [address] [place] [address] Care Team Providers Care Laborer Ammunition Assembly Name Role Phone Surjit Geo Unavailable [phone] Medications Medication SIG (Take, Route, Frequency, Duration) Notes Start Date End Date Status Calcitriol 0.25 MCG 1 capsule Orally Thr ee times a day; Duration: 90 day(s) Active Vitamin D (Ergocalciferol) 1.25 MG (60212 UT) TAKE 1 CAPSULE BY MOUTH WEEKLY; Duration: 90 Active Ozempic (0.25 or 0.5 MG/DOSE) 2 MG/3ML as directed Subcutaneous once a week; Duration: 90 days 03/01/2023 02/24/2024 Active Furosemide 20 MG TAKE 1 TABLET BY DEREK TH ONCE DAILY; Duration: 90 Active Encounters Encounter Location Date Provider Diagnosis [place] [facility] [address] [facility] [address] [place] [address] 10/23/2023 Geo Eddy Chronic kidney disea se, stage 3a N18.31 ; Essential hypertension I10 ; Renal osteodystrophy N25.0 ; Secondary hyperparathyroidism, not elsewhere classified E21.1 and Vitamin D deficiency, unspecified E55.9 Assessments Encounter Date Diagnosis (ICD Code) Assessment Notes Treatment Notes Treatment Clinical Notes Section Notes 10/23/2023 Chronic kidney disease, stage 3a (ICD-10 - N18.31) 10/23/2023 Essential hypertension (ICD-10 - I10) 10/23/2023 Renal osteodystrophy (ICD-10 - N25.0) 10/23/2023 Secondary hyperparathyroidism , not elsewhere classified (ICD-10 - E21.1) 10/23/2023 Vitamin D deficiency, unspecified (ICD-10 - E55.9) Plan Of Treatment No Information Progress Notes * MINDI ALONZOHDOB: [birth year] (54 yo F)Acc No.[id number]:10/23/2023 Progress Notes Patient: TORI WATTS Provider: Lenny HEART MD, Umu.Colette.C.P, F.A.S.N. :1970 A ge:53 Y S ex:Female Date:10/23/2023 Address:[address] [place] [address] Subjective: * Chief Complaints: * * Medical History: * Medications: T aking Furosemide 20 MG Tablet TAKE 1 TABLET BY MOUTH ONCE DAILY , Taking Ozempic (0.25 or 0.5 MG/DOSE) 2 MG/3ML Solution Pen-injector as directed Subcutaneous once a week , stop date 02/24/2024, Taking Vitamin D (Ergocalciferol) 1.25 MG (14455 UT) Capsule TAKE 1 CAPSULE BY MOUTH WEEKLY , Taking Calcitriol 0.25 MCG Capsule 1 capsule Orally Three times a day Objective: * Vitals: Assessment: * Assessment: 1. C hronic kidney disease, stage 3a - N18.31 (Primary) 2 . E ssential hypertension - I10 3 . R enal osteodystrophy - N25.0 4 . S econdary hyperparathyroidism, not elsewhere classified - E21.1 5 . V itamin D deficiency, unspecified - E55.9 Plan: * Treatment: * Billing Information: * Visit Code: 71018 Office Visit, Est Pt., Level 4. * Procedure Codes: * Electronic signature of Bailey Eddy MD on 12/07/2024 at 07:27 PM CDT Sign off status: Pending * Provider: Lenny HEART MD, F.Colette.C.P, F.A.S.N. Date: 0 10/23/2023 Generated for Printing/Faxing/eTransmitting on: 12/07/2024 07:27 PM CDT
--- OUTSIDE RECORDS SUMMARY | 2024-01-22 10:30 | XMS_ITS ---
Author Organization [facility] Address [address] [facility] [address] [facility] [address] [place] [address] Care Team Providers Care Software Tools Developer Name Role Phone Geo Eddy Unavailable [phone] Encounters Encounter Location Date Provider Diagnosis [place] [facility] [address] [facility] [address] [place] [address] 01/22/2024 Geo Eddy Plan Of Treatment No Information Progress Notes * MINDI ALONZOHDOB: [birth year] (54 yo F)Acc No.[id number]:01/22/2024 Progress Notes Patient: TORI WATTS Provider: Lenny HEART MD, Umu.Colette.C.P, F.A.S.N. :1970 A ge:53 Y S ex:Female Date:01/22/2024 Address:[address] [place] [address] Subjective: * Chief Complaints: * * Medical History: Objective: * Vitals: Assessment: Plan: * Treatment: * Billing Information: * Visit Code: * Procedure Codes: * Electronic signature of Bailey Eddy MD on 12/07/2024 at 07:27 PM CDT Sign off status: Pending * Provider: Lenny HEART MD, F.Colette.C.P, F.A.S.N. Date: Generated for Printing/Faxing/eTransmitting on: 12/07/2024 07:27 PM CDT
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
[2024-12-07 19:26] VITALS: BP 114/67; PULSE 73; RESP 20; TEMP 36.8; O2SAT 99
--- OUTSIDE RECORDS SUMMARY | 2024-12-07 19:28 | XMS_ITS | Clinical Summary ---
Author Organization [facility] [place] Address [address] [place] [address] Care Team Providers Care Property Field Adjuster Name Role Phone Duglas Davis MD Primary Care Provide r Heri Thomas MD Unavailable [phone] Allergies No known active allergies Medications budesonide-formo [...] 1 tablet (75 mcg total) by mouth oiler bander before breakfast Active Active Problems Problem Noted [...] 1:59 PM CDT): UE emg/nct 03/03/2020 at [facility] [place]. Mother has psoriasis. Hepatitis B and C neg 01/2024 Avise panel 01/2024---Anti-Thyroid Peroxidase 125 Assessment & Plan (01/10/2024 3:36 PM CDT): UE emg/nct 03/03/2020 at [facility] [place]. Mother has psoriasis. 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 Gender Identity Not on file Sexual Orientation [...] 02/03/2022, 01/14/2022, Additional history exists Influenza Vaccine (#1) 2024 02/02/2023, 2011 DTaP/Tdap/Td Vaccine (2 - Td or Tdap) 04/18/2032 04/18/2022 Pneumococcal vaccine <65 Completed 02/02/2023 Zoster Vaccine Completed 03/15/2023, 01/14/2023 Hepatitis B Screening Completed 01/10/2024 Insurance [facility] Member Subscriber Plan / Payer (Ef fective 2021-Present) Name:Alie Mohan Relation to Subscriber:Self Name:Alie Mohan Payer ID:[id number] (NAIC) Type:[facility] HMO/PPO Address: [address] [place] [facility] CORE Care Teams Property Field Adjuster Relationship Specialty Start Date End Date Duglas Davis MD [address] [address] PCP - General Internal Medicine 11/01/22 Heri Thomas MD [address] [place] [facility] [place] [address] Consulting Physician Rheumatology 12/05/23
--- OUTSIDE RECORDS SUMMARY | 2024-12-07 19:28 | XMS_ITS | Clinical Summary ---
Author Organization [facility] Address [address] [place] [id number] Phone Care Team Providers Care Qa Automation Engineer Name Role Phone Quinton Nova MD Primary Care Provider [phone] Allergies Active Allergy Reactions Criticality Noted Date [...] on file Legal Sex Female 2:03 PM ROVING TELLER Gender Identity Not on file Sexual Orientation Not on file Last Filed Vital Signs Vital Sign Reading Time Taken Comments Blood Pressure 138/78 03/04/2017 8:48 AM ROVING TELLER Pulse 59 03/04/2017 8:48 AM ROVING TELLER Temperature - - Respiratory Rate - - Oxygen Saturation - - Inhaled Oxygen Concentration - - Weight 93.9 kg (207 lb) 03/04/2017 8:48 AM ROVING TELLER Height 160 cm (5' 3) 03/04/2017 8:48 AM ROVING TELLER Body Mass Index 36.67 03/04/2017 8:48 AM ROVING TELLER Plan of Treatment Health Maintenance Due Date [...] 2) 2018 INFLUENZA VACCINE (#1) 2024 Insurance [facility] [employer] PPO [id number] Care Teams Qa Automation Engineer Relationship Specialty Start Date End Date Quinton Nova MD [facility] [place] [address] PCP - General Family Practice 03/04/17
--- OUTSIDE RECORDS SUMMARY | 2024-12-07 19:28 | XMS_ITS | Patient Health Record ---
Author Organization [facility] Address [address] [place] [address] Care Team Providers Care Claims Service Representative Name Role Phone Geo Eddy Unavailable [phone] Reason For Referral No Information Medications Medication SIG (Take, Route, Frequency, Duration) Notes Start Date End Date Status Calcitriol 0.25 MCG 1 capsule Orally Thr ee times a day; Duration: 90 day(s) Active Vitamin D (Ergocalciferol) 1.25 MG (34286 UT) TAKE 1 CAPSULE BY MOUTH WEEKLY; Duration: 90 Active Furosemide 20 MG TAKE 1 TABLET BY DEREK TH ONCE DAILY; Duration: 90 Active Problems Problem Type SNOMED Code ICD Code Onset Dates Problem Status W/U Status Risk Notes Problem Secondary hyperparathyroidism (61708000) Secondary hyperparathyroid ism, not elsewhere classified (E21.1) Active confirmed Problem Vitamin D deficiency (38793370) Vitamin D deficiency, unspecified (E55.9) Active confirmed Problem Renal osteodystrophy (18593301) Renal osteodystrophy (N25.0) Active confirmed Problem Essential hypertension (77804584) Essential hypertension (I10) Active confirmed Problem Chronic kidney disease stage 3A (disorder) (190497859) Chronic kidney disease, stage 3a (N18.31) Active confirmed Plan Of Treatment No Information
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
[2024-12-07] MEDS: ONDANSETRON INJ 4 MG/2 ML VIAL IV PUSH (20:19)
[2024-12-07] MEDS: MORPHINE SULFATE (*CRX) 4 MG/ML INJ IV PUSH (20:19)
== END 2024-12-07 21:41 | disposition home or self-care (01) ==
PROVIDERS: Emergency Provider Physician Assistant; PCP Internal Medicine
DX: S42.021A Displaced fracture of shaft of right clavicle, initial encounter for closed fracture (principal); J45.40 Moderate persistent asthma, uncomplicated; J44.9 Chronic obstructive pulmonary disease, unspecified; N28.9 Disorder of kidney and ureter, unspecified; K58.0 Irritable bowel syndrome with diarrhea; K21.9 Gastro-esophageal reflux disease without esophagitis; M19.90 Unspecified osteoarthritis, unspecified site; F32.A Depression, unspecified; F41.9 Anxiety disorder, unspecified; Z90.710 Acquired absence of both cervix and uterus; Z90.49 Acquired absence of other specified parts of digestive tract; Z79.899 Other long term (current) drug therapy; Z79.85 Long-term (current) use of injectable non-insulin antidiabetic drugs; V28.09XA Other motorcycle driver injured in noncollision transport accident in nontraffic accident, initial encounter
CPT/HCPCS: 70450; 71045; 71046; 72125; 73000; 96374; 96375; 99284; A4565; J2270; J2405

== ENCOUNTER 2024-12-29 12:40 | Outpatient (CLI) | payer OTHER, SELFPAY ==
--- OUTSIDE RECORDS SUMMARY | 2023-10-23 09:45 | XMS_ITS ---
Author Organization [facility] Office Address [address] [facility] [address] [facility] [address] [place] [address] Care Team Providers Care Retail Tire Sales Manager Name Role Phone Surjit Geo Unavailable [phone] Medications Medication SIG (Take, Route, Frequency, Duration) Notes Start Date End Date Status Calcitriol 0.25 MCG 1 capsule Orally Thr ee times a day; Duration: 90 day(s) Active Vitamin D (Ergocalciferol) 1.25 MG (10528 UT) TAKE 1 CAPSULE BY MOUTH WEEKLY; Duration: 90 Active Ozempic (0.25 or 0.5 MG/DOSE) 2 MG/3ML as directed Subcutaneous once a week; Duration: 90 days 03/01/2023 02/24/2024 Active Furosemide 20 MG TAKE 1 TABLET BY DEREK TH ONCE DAILY; Duration: 90 Active Encounters Encounter Location Date Provider Diagnosis [place] [facility] [address] [facility] 15 [place] [address] 10/23/2023 Geo Eddy Chronic kidney disea se, [...] * MINDI ALONZOHDOB: [birth year] (54 yo F)Acc No.[id number]:10/23/2023 Progress Notes Patient: TORI WATTS Provider: Lenny HEART MD, F.Colette.C.P, F.A.S.N. :1970 A ge:53 Y S ex:Female Date:10/23/2023 Address:[address] [place] [address] Subjective: * Chief Complaints: * * Medical History: * Medications: T aking Furosemide 20 MG Tablet TAKE 1 TABLET BY MOUTH ONCE DAILY , Taking Ozempic (0.25 or 0.5 MG/DOSE) 2 MG/3ML Solution Pen-injector as directed Subcutaneous once a week , stop date 02/24/2024, Taking Vitamin D (Ergocalciferol) 1.25 MG (61953 UT) Capsule TAKE 1 CAPSULE BY MOUTH [...] Treatment: * Billing Information: * Visit Code: 87655 Office Visit, Est Pt., Level 4. * Procedure Codes: * Electronic signature of Bailey Eddy MD on 12/29/2024 at 02:22 PM CDT Sign off status: Pending * Provider: Lenny HEART MD, F.Colette.C.P, F.A.S.N. Date: 0 10/23/2023 Generated for Printing/Faxing/eTransmitting on: 12/29/2024 02:22 PM CDT
--- OUTSIDE RECORDS SUMMARY | 2024-01-22 10:30 | XMS_ITS ---
Author Organization [facility] Address [address] [facility] [address] [facility] [[email or web address] [address] [place] [address] Care Team Providers Care District Claims Manager Name Role Phone Geo Eddy Unavailable [phone] Encounters Encounter Location Date Provider Diagnosis [place] [facility] [address] [facility] [address] [place] [address] 01/22/2024 Geo Eddy Plan Of Treatment No Information Progress Notes * MINDI ALONZOHDOB: [birth year] (54 yo F)Acc No.[id number]:01/22/2024 Progress Notes Patient: TORI WATTS Provider: Lenny HEART MD, Umu.Colette.C.P, F.A.S.N. :1970 A ge:53 Y S ex:Female Date:01/22/2024 Address:[address] [place] [address] Subjective: * Chief Complaints: * * Medical History: Objective: * Vitals: Assessment: Plan: * Treatment: * Billing Information: * Visit Code: * Procedure Codes: * Electronic signature of Bailey Eddy MD on 12/29/2024 at 02:22 PM CDT Sign off status: Pending * Provider: Lenny HEART MD, F.Colette.C.P, F.A.S.N. Date: Generated for Printing/Faxing/eTransmitting on: 12/29/2024 02:22 PM CDT
--- NOTE | 2024-12-29 13:06 | ECG_ITS ---
Test Date: 2024-12-29 13:18:01 Measurements Intervals Pauline Rate: 58 P: 65 WI: 188 QRS: 50 QRSD: 86 T: 49 QT: 409 QTc: 402 Interpretive Statements SINUS BRADYCARDIA OTHERWISE NORMAL ECG WARNING: DATA QUALITY MAY AFFECT INTERPRETATION No previous ECG available for comparison Electronically Signed On 12-29-2024 17:17:48 CDT by Srinivasa Grey M.D.
[2024-12-29 13:37] LABS: INR 1.3; Prothrombin Time 16.3 Seconds (11.1-14.7)
[2024-12-29 13:38] LABS: Partial Thromboplastin Time 28.6 Seconds (22.3-36.8)
[2024-12-29 13:51] LABS: Anion Gap 6 mmol/L (4-12); Blood Urea Nitrogen 19 mg/dL (7-17); Calcium 9.8 mg/dL (8.4-10.2); Carbon Dioxide 29 mmol/L (22-30); Chloride 102 mmol/L (98-107); Estimated Glomerular Filt Rate 45; Glucose 88 mg/dL (65-110); Potassium 4.2 mmol/L (3.4-5.0); Sodium 137 mmol/L (137-145)
--- OUTSIDE RECORDS SUMMARY | 2024-12-29 14:22 | XMS_ITS | Patient Health Record ---
Author Organization [facility] Office Address [address] [place] [address] Care Team Providers Care Ice Delivery Driver Name Role Phone Geo Eddy Unavailable [phone] Reason For Referral No Information Medications Medication SIG (Take, Route, Frequency, Duration) Notes Start Date End Date Status Calcitriol 0.25 MCG 1 capsule Orally Thr ee times a day; Duration: 90 day(s) Active Vitamin D (Ergocalciferol) 1.25 MG (97519 UT) TAKE 1 CAPSULE BY MOUTH WEEKLY; Duration: 90 Active Furosemide 20 MG TAKE 1 TABLET BY DEREK TH ONCE DAILY; Duration: 90 Active Problems Problem Type SNOMED Code ICD Code Onset Dates Problem Status W/U Status Risk Notes Problem Secondary hyperparathyroidism (63554932) Secondary hyperparathyroid ism, not elsewhere classified (E21.1) Active confirmed Problem Vitamin D deficiency (44453743) Vitamin D deficiency, unspecified (E55.9) Active confirmed Problem Renal osteodystrophy (51987833) Renal osteodystrophy (N25.0) Active confirmed Problem Essential hypertension (10095083) Essential hypertension (I10) Active confirmed Problem Chronic kidney disease stage 3A (disorder) (658488964) Chronic kidney disease, stage 3a (N18.31) Active confirmed Plan Of Treatment No Information
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
--- OUTSIDE RECORDS SUMMARY | 2024-12-29 14:22 | XMS_ITS | Clinical Summary ---
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 Gender Identity Not on file Sexual Orientation Not on file Last Filed Vital Signs Vital Sign Reading Time Taken Comments Blood Pressure 138/78 03/04/2017 8:48 AM FORMS ANALYSIS MANAGER Pulse 59 03/04/2017 8:48 AM FORMS ANALYSIS MANAGER Temperature - - Respiratory Rate - - Oxygen Saturation - - Inhaled Oxygen Concentration - - Weight 93.9 kg (207 lb) 03/04/2017 8:48 AM FORMS ANALYSIS MANAGER Height 160 cm (5' 3) 03/04/2017 8:48 AM FORMS ANALYSIS MANAGER Body Mass Index 36.67 03/04/2017 8:48 AM FORMS ANALYSIS MANAGER Plan of Treatment Health Maintenance Due Date [...] INFLUENZA VACCINE (#1) 2024 Insurance [facility] OPTIONS PPO [id number] Care Teams Hand Outside Cutter Relationship Specialty Start Date End Date Quinton Nova MD [facility] [place] [address] PCP - General Family Practice 03/04/17
== END 2024-12-29 12:41 | disposition home or self-care (01) ==
PROVIDERS: Anesthesiology; PCP Internal Medicine; Visit Provider Orthopaedic Surgery
DX: E11.9 Type 2 diabetes mellitus without complications (principal); F17.210 Nicotine dependence, cigarettes, uncomplicated; I12.9 Hypertensive chronic kidney disease with stage 1 through stage 4 chronic kidney disease, or unspecified chronic kidney disease; N18.32 Chronic kidney disease, stage 3b
CPT/HCPCS: 36415; 80048; 85610; 85730; 93005

== ENCOUNTER 2024-12-31 00:59 | Day surgery (SDC) | payer OTHER, SELFPAY ==
--- OUTSIDE RECORDS SUMMARY | 2023-10-23 09:45 | XMS_ITS ---
Author Organization [facility] Office Address [address] [facility] [address] [facility] [address] [place] [address] Care Team Providers Care Chief Meteorologist Name Role Phone Surjit Geo Unavailable [phone] Medications Medication SIG (Take, Route, Frequency, Duration) Notes Start Date End Date Status Calcitriol 0.25 MCG 1 capsule Orally Thr ee times a day; Duration: 90 day(s) Active Vitamin D (Ergocalciferol) 1.25 MG (48021 UT) TAKE 1 CAPSULE BY MOUTH WEEKLY; Duration: 90 Active Ozempic (0.25 or 0.5 MG/DOSE) 2 MG/3ML as directed Subcutaneous once a week; Duration: 90 days 03/01/2023 02/24/2024 Active Furosemide 20 MG TAKE 1 TABLET BY DEREK TH ONCE DAILY; Duration: 90 Active Encounters Encounter Location Date Provider Diagnosis [place] [facility] [address] [facility] [address] [place] [address] 10/23/2023 Geo Eddy Chronic kidney disea se, [...] * MINDI ALONZOHDOB: [birth year] (54 yo F)Acc No.[id number]:10/23/2023 Progress Notes Patient: TORI WATTS Provider: Lenny HEART MD, Umu.Colette.Manuel.P, F.A.S.N. :1970 A ge:53 Y S ex:Female Date:10/23/2023 Address:[address] [place] [address] Subjective: * Chief Complaints: * * Medical History: * Medications: T aking Furosemide 20 MG Tablet TAKE 1 TABLET BY MOUTH ONCE DAILY , Taking Ozempic (0.25 or 0.5 MG/DOSE) 2 MG/3ML Solution Pen-injector as directed Subcutaneous once a week , stop date 02/24/2024, Taking Vitamin D (Ergocalciferol) 1.25 MG (70892 UT) Capsule TAKE 1 CAPSULE BY MOUTH [...] Treatment: * Billing Information: * Visit Code: 50014 Office Visit, Est Pt., Level 4. * Procedure Codes: * Electronic signature of Bailey Eddy MD on 12/31/2024 at 01:02 AM CDT Sign off status: Pending * Provider: Lenny HEART MD, F.Colette.C.P, F.A.S.N. Date: 10/23/2023 Generated for Printing/Faxing/eTransmitting on: 12/31/2024 01:02 AM CDT
--- OUTSIDE RECORDS SUMMARY | 2024-01-22 10:30 | XMS_ITS ---
Author Organization [facility] Address [address] [place] [address] Care Team Providers Care Director Business Development Name Role Phone Geo Eddy Unavailable [phone] Encounters Encounter Location Date Provider Diagnosis [place] [facility] [address] [facility] [address] [place] [address] 01/22/2024 Geo Eddy Plan Of Treatment No Information Progress Notes * MINDI ALONZOHDOB: [birth year] (54 yo F)Acc No.[id number]:01/22/2024 Progress Notes Patient: TORI WATTS Provider: Lenny HEART MD, Umu.Colette.C.P, F.A.S.N. :1970 A ge:53 Y S ex:Female Date:01/22/2024 Address:[address] [place], [place] [id number] Subjective: * Chief Complaints: * * Medical History: Objective: * Vitals: Assessment: Plan: * Treatment: * Billing Information: * Visit Code: * Procedure Codes: * Electronic signature of Bailey Eddy MD on 12/31/2024 at 01:02 AM CDT Sign off status: Pending * Provider: Lenny HEART MD, F.Colette.C.P, F.A.S.N. Date: Generated for Printing/Faxing/eTransmitting on: 12/31/2024 01:02 AM CDT
[2024-12-28 12:20] VITALS: BMI 35.4
--- NOTE | 2024-12-28 12:30 | PC.NURSE ---
Report to the Outpatient Waiting Room, entrance under the green pavilion located off [facility], at time _1000_ on date _[id number]_. Planned Procedure Time: _1200_.? Time changes happen often and if your time is changed the preop area will call you the afternoon before. - You and your visitor will be asked to self-screen and do not enter if you have any COVID symptoms. Please call surgeon if you need to reschedule. - A mask is optional within the hospital at this time. Patients may have clear liquids (water, carbonated beverages, clear teas, apple juice) until 3 hours prior to surgery with a maximum of 20 ounces. - No food from midnight until time of surgery and no smoking, or chewing tobacco (or any form of nicotine). No chewing gum, candy or mints. Take only the following medications with a SIP of water on the morning of surgery: ___Metoprolol, Duloxetine, Levothyroxine and Inhaler.____ DO NOT STOP ANY OF YOUR OTHER PRESCRIPTION MEDICATIONS PRIOR TO SURGERY EXCEPT THE FOLLOWING Hold all vitamins and supplements for 3 days per anesthesiologist. Stop now. Medications to discontinue per physician Date to take last dose Please no make-up, nail citizen of the [place], hairspray, perfume, deodorant, or body powder the day of surgery.? No jewelry (including any body piercings) or valuables the day of surgery, leave them at home.? Please take a shower or bath the night before, or the morning of, surgery with an antibacterial soap.? Wear comfortable, loose fitting clothing.? - Jewelry must be removed prior to entering the operating room.? Rings and piercings that are not removed may be cut off. - The hospital will not accept responsibility for valuables.? - Please leave all valuables, including medications, at home the day of surgery. If you are going home after surgery, a licensed rental car ferry driver must drive you home.? - NO public transportation without another adult if you receive anesthesia. - We recommend that an adult stay with you for 24 hours following discharge. - We also recommend that you do not drive, make important decision, drink alcoholic beverages, or take any drugs that were not prescribed by your health care provider for at least 24 hours after your discharge time. Follow any additional instructions given to you from your surgeon. Telephone instructions given to __Deborah__and asked if any additional questions and then verbalized understanding. Patient advised to call surgeon office or pre surgery nurse liaison [phone] if any additional questions.
[2024-12-31] VITALS (9 sets, daily range): BP systolic 94–119; BP diastolic 64–78; PULSE 60–82; RESP 12–22; TEMP 36.4–37.1; O2SAT 96–100
--- NOTE | ~2024-12-31 | XR_ITS ---
EXAMINATION: XR clavicle RT DATE: 12/31/2024 16:27 INDICATION: Status post right clavicle fracture fixation TECHNIQUE: AP and 10 degree cephalad angled AP views of the right clavicle were obtained. COMPARISON: 12/25/2024 FINDINGS: Interval open reduction and internal fixation of the previously noted mid diaphyseal fracture of the right clavicle. The essentially indiscernible fracture is now in anatomic alignment with interfragmentary screw and cephalad plate and screw fixation. No new fractures identified. Right glenohumeral and acromioclavicular joints are normal. Moderate to severe lower cervical spondylosis. Visualized portions of the upper lungs are clear. IMPRESSION: 1. Essentially anatomic alignment post open reduction internal fixation of a fracture of the mid right clavicle. Reviewed, dictated and finalized at location A. IMPRESSION: 1. Essentially anatomic alignment post open reduction internal fixation of a fr acture of the mid right clavicle.
--- NOTE | ~2024-12-31 | XR_ITS ---
EXAMINATION: XR surgery orthopedic DATE: 12/31/2024 13:45 INDICATION: Right clavicle fracture fixation TECHNIQUE: AP view of the right clavicle was obtained during procedure performed by Dr. Portillo. Radiologist was not present for the imaging or procedure. COMPARISON: 12/25/2024 FINDINGS: Interval open reduction internal fixation of the mid diaphyseal fracture of the right clavicle which is fixed with an interfragmentary screw and cephalad plate and screws. No new fractures identified. Significant portions of the right shoulder are obscured by instrumentation external to the patient. Endotracheal tube with distal tip in expected position just below level of the thoracic inlet. Visualized portions of the upper lungs are clear with no pneumothorax. IMPRESSION: 1. Interval open reduction internal fixation of a mid diaphyseal fracture of the right clavicle which is in near-anatomic alignment. Reviewed, dictated and finalized at location A. IMPRESSION: 1. Interval open reduction internal fixation of a mid diaphyseal fracture of th e right clavicle which is in near-anatomic alignment.
--- OUTSIDE RECORDS SUMMARY | 2024-12-31 01:03 | XMS_ITS | Clinical Summary ---
Author Organization [facility] [place] Address [address] [place] [address] Care Team Providers Care Junior Legal Secretary Name Role Phone Duglas Davis MD Primary Care Provide r Heri Thomas MD Unavailable [phone] Allergies No known active allergies Medications budesonide-formo [...] 1 tablet (75 mcg total) by mouth interpreter translator before breakfast Active Active Problems Problem Noted [...] 1:59 PM CDT): UE emg/nct 03/03/2020 at [facility] [place]. Mother has psoriasis. Hepatitis B and C neg 01/2024 Avise panel 01/2024---Anti-Thyroid Peroxidase 125 Assessment & Plan (01/10/2024 3:36 PM CDT): UE emg/nct 03/03/2020 at [facility]. Mother has psoriasis. 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 Gender Identity Not on file Sexual Orientation [...] Completed 03/15/2023, 01/14/2023 Hepatitis B Screening Completed Insurance Member Subscriber Plan / Payer (Ef fective 2021-Present) Name:Alie Mohan Relation to Subscriber:Self Name:Alie Mohan Payer ID:[id number] (NAIC) Type:[facility] H[facility]/PPO Address: [address] [place] [facility] CORE Care Teams Junior Legal Secretary Relationship Specialty Start Date End Date Duglas Davis MD [address] [facility] [address] [place] [address] PCP - General Internal Medicine 11/01/22 Heri Thomas MD [facility] [place] [address] Consulting Physician Rheumatology 12/05/23
--- OUTSIDE RECORDS SUMMARY | 2024-12-31 01:03 | XMS_ITS | Patient Health Record ---
Author Organization [facility] Address [address] [place] [address] Care Team Providers Care Gravure Press Operator Name Role Phone Geo Eddy Unavailable [phone] Reason For Referral No Information Medications Medication SIG (Take, Route, Frequency, Duration) Notes Start Date End Date Status Calcitriol 0.25 MCG 1 capsule Orally Thr ee times a day; Duration: 90 day(s) Active Vitamin D (Ergocalciferol) 1.25 MG (12256 UT) TAKE 1 CAPSULE BY MOUTH WEEKLY; Duration: 90 Active Furosemide 20 MG TAKE 1 TABLET BY DEREK TH ONCE DAILY; Duration: 90 Active Problems Problem Type SNOMED Code ICD Code Onset Dates Problem Status W/U Status Risk Notes Problem Secondary hyperparathyroidism (75626778) Secondary hyperparathyroid ism, not elsewhere classified (E21.1) Active confirmed Problem Vitamin D deficiency (01371411) Vitamin D deficiency, unspecified (E55.9) Active confirmed Problem Renal osteodystrophy (55179729) Renal osteodystrophy (N25.0) Active confirmed Problem Essential hypertension (13193961) Essential hypertension (I10) Active confirmed Problem Chronic kidney disease stage 3A (disorder) (278166148) Chronic kidney disease, stage 3a (N18.31) Active confirmed Plan Of Treatment No Information
--- OUTSIDE RECORDS SUMMARY | 2024-12-31 01:03 | XMS_ITS | Clinical Summary ---
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 Gender Identity Not on file Sexual Orientation Not on file Last Filed Vital Signs Vital Sign Reading Time Taken Comments Blood Pressure 138/78 03/04/2017 8:48 AM TOBACCO DRIER OPERATOR Pulse 59 03/04/2017 8:48 AM TOBACCO DRIER OPERATOR Temperature - - Respiratory Rate - - Oxygen Saturation - - Inhaled Oxygen Concentration - - Weight 93.9 kg (207 lb) 03/04/2017 8:48 AM TOBACCO DRIER OPERATOR Height 160 cm (5' 3) 03/04/2017 8:48 AM TOBACCO DRIER OPERATOR Body Mass Index 36.67 03/04/2017 8:48 AM TOBACCO DRIER OPERATOR Plan of Treatment Health Maintenance Due Date [...] 2) 2018 INFLUENZA VACCINE (#1) 2024 Insurance [facility] OPTIONS PPO [id number] Care Teams Junior Oracle Dba Relationship Specialty Start Date End Date Quinton Nova MD [facility] [place] [address] PCP - General Family Practice 03/04/17
--- NOTE | 2024-12-31 10:02 | WPDHPUPDATE1 ---
History and Physical Update Update Date/Time: 12/31/24 10:02 History and Physical has been reviewed, including an updated exam of the patient. There are NO changes in the patient's condition. Risks, benefits, and alternatives have been discussed and questions answered. Patient agrees to proceed with procedure.
[2024-12-31] MEDS: LACTATED RINGERS 1,000 ML 30 ML IV CONT ×2 (10:35→14:34)
[2024-12-31 11:17] LABS: INR 1.0; Prothrombin Time 13.0 Seconds (11.1-14.7)
[2024-12-31] MEDS: KETOROLAC 15 MG/ML VIAL (*BKC) IV PUSH (11:22)
[2024-12-31] MEDS: ACETAMINOPHEN 500 MG TABLET 1000 MG PO (11:22)
--- NOTE | 2024-12-31 11:37 | P.PNAN_ITS ---
Anes - Initial Pre Proc Eval Procedure: Operation Date: 12/31/24 12:00 Proposed Procedures p Open Reduction Internal Fixation Right Clavicle Fracture - Isreal Portillo MD Date/Time: 12/31/24 11:37 Surgeon: Isreal Portillo MD Pre Op Diagnosis: right clavicle fx Patient Data Age: 54 Gender: F Height: 1.6 m Weight: 90.9 kg Allergies Allergy/AdvReac Type Severity Reaction Status Date / Time montelukast (From [facility]) AdvReac Intermediate Change in Verified 12/31/24 11:14 mood and dark thoughts Home Medications ?Medication ?Instructions ?Recorded ?Confirmed ?Type omeprazole 20 mg capsule,delayed 20 mg PO DAILY 12/31/24 History release irbesartan 300 mg tablet 300 mg PO DAILY #90 tabs 09/0312/31/24 Rx metoprolol succinate 100 mg 100 mg PO DAILY #30 tabs 0 11/15/21 12/31/24 Rx tablet,extended release 24 hr triamcinolone acetonide 0.5 % 1 applic topical BID #30 grams 01/08/22 12/28/24 Rx topical cream duloxetine 60 mg capsule,delayed 60 mg PO DAILY #90 ca ps 07/16/22 12/31/24 Rx release albuterol sulfate 90 mcg/actuation 1 - 2 puff inhalati on Q4-6H PRN 08/08/23 12/31/24 Rx aerosol inhaler (ProAir HFA) shortness of breath or wh eezing #8.5 grams cyclobenzaprine 10 mg tablet 10 mg PO TID 08/08/23 History dapagliflozin propanediol 10 mg 10 mg PO DAILY 08/07/ 4 12/31/24 History tablet (Farxiga) levothyroxine 75 mcg tablet 75 mcg PO DAILY 08/08/23 0 12/31/24 History (Unithroid) magnesium 250 mg tablet 250 mg PO DAILY 08/08/23 History rosuvastatin 40 mg sprinkle capsule 40 mg PO DAILY 12/28/24 History tirzepatide 5 mg/0.5 mL 5 mg subcut WEEKLY 06/23/24 12/28/24 History subcutaneous pen injector (Mounjaro) budesonide-formoterol HFA 160 See Rx Instructions .Rou te 11/30/24 12/31/24 Rx mcg-4.5 mcg/actuation aerosol .COMPLEX #10.2 grams inhaler hydrocodone 5 mg-acetaminophen 325 1 - 2 tablet PO Q4- 6H PRN pain #30 12/25/24 12/28/24 Rx mg tablet tabs oxycodone-acetaminophen 5 mg-325 1 - 2 tablet PO Q4-6H PRN pain 7 12/31/24 Rx mg tablet days #30 tabs Laboratory Tests 12/31/24 12/31/24 10:51 11:00 PT 13.0 D Seconds (11.1-14.7) INR 1.0 POC Capillary Glucose 92 mg/dl (65-105) Patient hx anesthesia problems: none Family hx anesthesia problems: none Results Review: All pre-operative results and documents have been reviewed as part of the pre- operative evaluation. [facility] Past Medical History Medical History JOSE JUAN positive Chronic low back pain with right-sided sciatica Muscle spasm Eczema (~12/2021) elbows Chronic pain of left knee X-ray on 07/10/2021 was normal. Renal insufficiency, mild (07/01/21) BUN 26, creatinine 1.2 with GFR 47, decreased from 60 on 07/01/2021. BUN 23 with creatinine 1.3 with GFR 43, decreased from 47 on 12/30/2021. Breast cancer screening by mammogram normal mammogram 03/28/2021 Left leg weakness Lumbago with sciatica, left side Cramps of lower extremity Fatigue Moderate persistent asthma, uncomplicated PFT on 08/15/2020 with moderate severe obstructive defect reversible with FEV1 56% COPD (chronic obstructive pulmonary disease) BMI 40.0-44.9, adult Acute bronchitis Shortness of breath Hypersomnia History of smoking 30 or more pack years Colon cancer screening Abnormal fasting glucose Fast glucose 116 with hemoglobin A1c 5.4 on 07/01/2021. Fasting glucose 118 with hemoglobin A1c 5.7 on 12/30/2021. Seasonal allergic rhinitis Chronic neck pain Chronic pain Osteoarthritis involving multiple joints on both sides of body Bilateral carpal tunnel syndrome Chronic low back pain without sciatica Migraine without aura and without status migrainosus, not intractable Irritable bowel syndrome with diarrhea Chronic depression Body mass index (bmi) 38.0-38.9, adult (12/13/17) Anxiety GERD (gastroesophageal reflux disease) Headache Seasonal allergies Surgical History Surgical History History of tubal ligation History of hysterectomy History of cholecystectomy Family History Family History Mother Family history of diabetes mellitus in first degree relative Diabetes mellitus Hypertension Family history of malignant neoplasm of breast in first degree relative Father Diabetes mellitus Hypertension Social History Social History Social History: 30 pack years per office visit 12/24/2019 Smoking packs per day: 1 Smoking cigarettes per day: 20.0 Years smoked: 30 Smoking pack-years: 30.00 Smoking status: Former smoker Tobacco type: cigarettes Second hand tobacco smoke exposure: Yes Smoking end date: 12/28/13 Alcohol intake: never Substance use: never Substance use type: marijuana Other substance usage details: On occasion. Do You Feel Safe in your Home?: Yes Lack of Transportation: No Lack of Food: Never True Current Housing: I Have Housing Concerned About Future Housing: No Difficulty Paying Gas/Electric Bills: No Difficulty Paying for Meds: No Currently Unemployed: No Education: High School Diploma/GED Difficulty w/ Childcare or Family Care: No Living arrangements: with family Gender identity (if verbalized by the patient): Female Spiritual care concerns: No Anes - Eval Final PreProcedure Day of Procedure 12/31/24 11:37 Patient weight: obese Lungs: normal air movement Airway: Mallampati scale class II Neurological: alert and oriented Last oral intake: >/= 8 hours ASA classification: III Emergent: no Anesthetic plan: proceed Anesthesia type and monitoring: general ETT and standard monitoring Results Review: All pre-operative results and documents have been reviewed as part of the pre- operative evaluation. HTN, hyperlipidemia, ex smoker, hypothyroidism, ECHO 2022 w nml LVEF. Informed Consent: The patient's anesthetic plan and its attendant risks and benefits were discussed with the patient/family/POA. Questions were solicited and answers provided to the satisfaction of the patient/family/POA.
[2024-12-31] MEDS: ceFAZolin 2 GM in SODIUM CHLORIDE 0.9% IV 50 ML 100 ML IVPB (11:57)
[2024-12-31] MEDS: BUPIVACAINE/EPINEPHRINE 0.5% 50 ML VIAL 30 ML INFILTRATE (12:19)
--- NOTE | 2024-12-31 14:44 | W.PM.PROC2 ---
Procedure Note - Detailed Date of Procedure 12/31/24 Pre-op Diagnosis Displaced, comminuted right clavicle fracture. Post-op Diagnosis Same Procedure Performed ORIF right clavicle fracture Surgeon Isreal Portillo MD Lead Care Manager Imelda Ferrell PA-C Anesthesia General Description of Procedure The patient was given a general anesthetic. Preoperative antibiotics were administered. The patient was placed in the beach chair position. The shoulder was prepped and draped in usual sterile fashion exposing the clavicle widely. A transverse incision was created over the fracture site. Careful blunt dissection was brought down to the clavicle. The subcutaneous skin nerves were protected. Self-retaining retractors were placed. The fracture was cleared of hematoma and irrigated. Careful exposure of the fracture ends was accomplished without undue soft tissue stripping. The neurovascular structures were carefully protected throughout the procedure. Anatomic reduction was obtained with reduction forceps. Provisional fixation of the comminuted anterior fragment with a pin. The precontoured plate was applied. Excellent fixation was obtained with a combination of locking and nonlocking screws. A mini fragment screw was used anterior to posterior to fix the comminuted fragment. Postoperative x-ray confirmed appropriate screw lengths. The wound was irrigated and closed with layers using interrupted Vicryl and interrupted and running Monocryl suture followed by Steri-Strips. Sterile dressing was applied. The patient was brought to the recovery room in stable condition. There were no complications. Physician internal medicine physician assistant, Imelda Ferrell PA-C, required for surgery; including patient positioning, draping, tissue retraction, clearing fracture callus, assisting fracture reduction, wound closure, and dressing placement. Implants Accu Med 8 hole titanium clavicle plate. Four locking screws and 2 standard screws. One mini fragment lag screw. Estimated Blood Loss 20 Drains No Packing No Pathology None sent Complications No immediate complications Condition Stable Disposition PACU [facility] Billing Surgery - Charge Forward: Surgery Billing
[2024-12-31] MEDS: fentaNYL CITRATE INJ (*CRX) 100 MCG/2 ML VIAL 25 MCG IV PUSH (15:15)
== END 2024-12-31 16:45 | disposition home or self-care (01) ==
PROVIDERS: Anesthesiology; PCP Internal Medicine; Visit Provider Orthopaedic Surgery
PROC: (CPT 23515; principal; 2024-12-31 12:00)
DX: S42.021A Displaced fracture of shaft of right clavicle, initial encounter for closed fracture (principal); V28.09XA Other motorcycle driver injured in noncollision transport accident in nontraffic accident, initial encounter; I10 Essential (primary) hypertension; E78.5 Hyperlipidemia, unspecified; E03.9 Hypothyroidism, unspecified; J44.9 Chronic obstructive pulmonary disease, unspecified; K58.0 Irritable bowel syndrome with diarrhea; K21.9 Gastro-esophageal reflux disease without esophagitis; M62.838 Other muscle spasm; N28.9 Disorder of kidney and ureter, unspecified; R53.83 Other fatigue; G47.10 Hypersomnia, unspecified; M15.0 Primary generalized (osteo)arthritis; G56.03 Carpal tunnel syndrome, bilateral upper limbs; F32.A Depression, unspecified; F41.9 Anxiety disorder, unspecified; G89.29 Other chronic pain; M54.41 Lumbago with sciatica, right side; M25.562 Pain in left knee; M54.2 Cervicalgia; F12.90 Cannabis use, unspecified, uncomplicated; E66.9 Obesity, unspecified; Z68.35 Body mass index [BMI] 35.0-35.9, adult; Z79.51 Long term (current) use of inhaled steroids; Z79.84 Long term (current) use of oral hypoglycemic drugs; Z79.85 Long-term (current) use of injectable non-insulin antidiabetic drugs; Z79.891 Long term (current) use of opiate analgesic; Z98.890 Other specified postprocedural states; Z98.51 Tubal ligation status; Z90.49 Acquired absence of other specified parts of digestive tract; Z87.891 Personal history of nicotine dependence; Z80.3 Family history of malignant neoplasm of breast
CPT/HCPCS: 23515; 36415; 73000; 82948; 85610; 99199; J0690; A4565; A9270; C1713; C1769; J1100; J1885; J2250; J2371; J2405; J2704; J3010; J7120

== ENCOUNTER 2025-02-12 07:36 | Outpatient (CLI) | payer OTHER, SELFPAY ==
--- OUTSIDE RECORDS SUMMARY | 2023-10-23 09:45 | XMS_ITS ---
Author Organization [facility] Office Address [address] [facility] 61 [facility] [address] [place] [address] Care Team Providers Care Electrochemist Name Role Phone Surjit Geo Unavailable [phone] Medications Medication SIG (Take, Route, Frequency, Duration) Notes Start Date End Date Status Calcitriol 0.25 MCG 1 capsule Orally Thr ee times a day; Duration: 90 day(s) Active Vitamin D (Ergocalciferol) 1.25 MG (41931 UT) TAKE 1 CAPSULE BY MOUTH WEEKLY; Duration: 90 Active Ozempic (0.25 or 0.5 MG/DOSE) 2 MG/3ML as directed Subcutaneous once a week; Duration: 90 days 03/01/2023 02/24/2024 Active Furosemide 20 MG TAKE 1 TABLET BY DEREK TH ONCE DAILY; Duration: 90 Active Encounters Encounter Location Date Provider Diagnosis [place] [facility] [address] [facility] [address] [place] [address] 10/23/2023 Geo Eddy Chronic kidney disea se, [...] * MINDI ALONZOHDOB: [birth year] (54 yo F)Acc No.[id number]:10/23/2023 Progress Notes Patient: TORI WATTS Provider: Lenny HEART MD, F.Colette.Manuel.P, F.A.S.N. :1970 A ge:53 Y S ex:Female Date:10/23/2023 Address:[address] [place] [address] Subjective: * Chief Complaints: * * Medical History: * Medications: T aking Furosemide 20 MG Tablet TAKE 1 TABLET BY MOUTH ONCE DAILY , Taking Ozempic (0.25 or 0.5 MG/DOSE) 2 MG/3ML Solution Pen-injector as directed Subcutaneous once a week , stop date 02/24/2024, Taking Vitamin D (Ergocalciferol) 1.25 MG (28942 UT) Capsule TAKE 1 CAPSULE BY MOUTH [...] Treatment: * Billing Information: * Visit Code: 14782 Office Visit, Est Pt., Level 4. * Procedure Codes: * Electronic signature of Bailey Eddy MD on 02/12/2025 at 07:40 AM CDT Sign off status: Pending * Provider: Lenny HEART MD, F.Colette.C.P, F.A.S.N. Date: 0 10/23/2023 Generated for Printing/Faxing/eTransmitting on: 1 07:40 AM CDT
--- OUTSIDE RECORDS SUMMARY | 2024-01-22 10:30 | XMS_ITS ---
Author Organization [facility] Address [address] [place] [address] Care Team Providers Care Admitting Interviewer Name Role Phone Geo Eddy Unavailable [phone] Encounters Encounter Location Date Provider Diagnosis [place] [facility] [address] [facility] [address] [place] [address] 01/22/2024 Geo Eddy Plan Of Treatment No Information Progress Notes * MINDI ALONZOHDOB: [birth year] (54 yo F)Acc No.[id number]:01/22/2024 Progress Notes Patient: TORI WATTS Provider: Lneny HEART MD, Umu.Colette.C.P, F.A.S.N. :1970 A ge:53 Y S ex:Female Date:01/22/2024 Address:[address] [place], [place] [id number] Subjective: * Chief Complaints: * * Medical History: Objective: * Vitals: Assessment: Plan: * Treatment: * Billing Information: * Visit Code: * Procedure Codes: * Electronic signature of Bailey Eddy MD on 02/12/2025 at 07:40 AM CDT Sign off status: Pending * Provider: Lenny HEART MD, F.Colette.C.P, F.A.S.N. Date: Generated for Printing/Faxing/eTransmitting on: 07:40 AM CDT
--- OUTSIDE RECORDS SUMMARY | 2025-02-12 07:40 | XMS_ITS | Clinical Summary ---
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 Gender Identity Not on file Sexual Orientation Not on file Last Filed Vital Signs Vital Sign Reading Time Taken Comments Blood Pressure 138/78 03/04/2017 8:48 AM GUITAR INSTRUCTOR Pulse 59 03/04/2017 8:48 AM GUITAR INSTRUCTOR Temperature - - Respiratory Rate - - Oxygen Saturation - - Inhaled Oxygen Concentration - - Weight 93.9 kg (207 lb) 03/04/2017 8:48 AM GUITAR INSTRUCTOR Height 160 cm (5' 3) 03/04/2017 8:48 AM GUITAR INSTRUCTOR Body Mass Index 36.67 03/04/2017 8:48 AM GUITAR INSTRUCTOR Plan of Treatment Health Maintenance Due Date [...] 2) 2018 INFLUENZA VACCINE (#1) 2024 Insurance [facility] OPTIONS PPO [id number] Care Teams Erp Engineer Relationship Specialty Start Date End Date Quinton Nova MD [facility] [place] [address] PCP - General Family Practice 03/04/17
--- OUTSIDE RECORDS SUMMARY | 2025-02-12 07:40 | XMS_ITS | Clinical Summary ---
Author Organization [facility] [place] Address [address] [place] [address] Care Team Providers Care District Extension Service Agent Name Role Phone Duglas Davis MD Primary Care Provide r Heri Thomas MD Unavailable [phone] Allergies No known active allergies Medications budesonide-formo [...] 1 tablet (75 mcg total) by mouth chief operator reformer before breakfast Active Active Problems Problem Noted [...] 1:59 PM CDT): UE emg/nct 03/03/2020 at [facility] [place] Mother has psoriasis. Hepatitis B and C neg 01/2024 Avise panel 01/2024---Anti-Thyroid Peroxidase 125 Assessment & Plan (01/10/2024 3:36 PM CDT): UE emg/nct 03/03/2020 at [facility]. Mother has psoriasis. Surgical History Surgery Date Site/Laterality Comments HYSTERECTOMY CHOLECYSTECTOMY Medical History Medical History Date Comments Asthma Insomnia Migraines GERD (gastroesophageal reflux disease) Hypertension CKD (chronic kidney disease) stage 3, GFR 30-59 ml/min (HCC) Hyperlipidemia Hypothyroid DM2 (diabetes mellitus, type 2) Family History Medical History Relation Name Comments [...] on file Legal Sex Female 3:49 AM [employer] Gender Identity Not on file Sexual Orientation [...] Regular Well Visit/Exam 18-64 1988 Covid-19 Vaccine (2024-2 6 season) 2024 02/02/2023, 02/03/2022, 01/14/2022, Additional history exists Influenza Vaccine (#1) 2024 02/02/2023, 2011 DTaP/Tdap/Td Vaccine (2 - Td or Tdap) 04/18/2032 04/18/2022 Pneumococcal vaccine <65 Completed 02/02/2023 Zoster Vaccine Completed 03/15/2023, 01/14/2023 Hepatitis B Screening Completed 01/10/2024 Insurance [facility] Address: [address] [facility] Care Teams District Extension Service Agent Relationship Specialty Start Date End Date Duglas Davis MD [address] [facility] [address] [place] [address] PCP - General Internal Medicine 11/01/22 Heri Thomas MD [facility] [place] [address] Consulting Physician Rheumatology 12/05/23
--- OUTSIDE RECORDS SUMMARY | 2025-02-12 07:41 | XMS_ITS | Patient Health Record ---
Author Organization [facility] Address [address] [place] [address] Reason For Referral No Information Medications Medication SIG (Take, Route, Frequency, Duration) Notes Start Date End Date Status Calcitriol 0.25 MCG 1 capsule Orally Thr ee times a day; Duration: 90 day(s) Active Vitamin D (Ergocalciferol) 1.25 MG (32190 UT) TAKE 1 CAPSULE BY MOUTH WEEKLY; Duration: 90 Active Furosemide 20 MG TAKE 1 TABLET BY DEREK ONCE DAILY; Duration: 90 Active Problems Problem Type SNOMED Code ICD Code Onset Dates Problem Status W/U Status Risk Notes Problem Secondary hyperparathyroidism (82352261) Secondary hyperparathyroid ism, not elsewhere classified (E21.1) Active confirmed Problem Vitamin D deficiency (82800375) Vitamin D deficiency, unspecified (E55.9) Active confirmed Problem Renal osteodystrophy (99010944) Renal osteodystrophy (N25.0) Active confirmed Problem Essential hypertension (78643162) Essential hypertension (I10) Active confirmed Problem Chronic kidney disease stage 3A (disorder) (228221371) Chronic kidney disease, stage 3a (N18.31) Active confirmed Plan Of Treatment No Information
[2025-02-12 08:24] LABS: Hemoglobin A1C 5.3 % (<5.7)
[2025-02-12 08:33] LABS: Hematocrit 42.8 % (37.0-47.0); Hemoglobin 14.1 g/dL (12.0-15.0); Immature Granulocyte Percent A 0.4 % (0-0.5); Immature Platelet Fraction Pct 5.0 % (0.9-11.2); Lymphocytes Absolute Auto 2.09 K/mm3 (0.9-3.2); Mean Corpuscular HGB Conc 32.9 g/dl (32-36); Mean Corpuscular Hemoglobin 30.7 pg (26-34); Mean Corpuscular Volume 93.2 fl (80-100); Nucleated Red Blood Cells Absolute Auto 0.000 K/mm3 (0.0-0.012); Nucleated Red Blood Cells Perc 0.0 % (0.0-0.2); Platelet Count Result 297 k/mm3 (150-375); Red Blood Count 4.59 M/mm3 (4.2-5.4); White Blood Count 7.4 K/mm3 (4.5-10.0)
[2025-02-12 08:37] LABS: Alanine Aminotransferase 18 U/L (6-35); Albumin Level 4.4 g/dL (3.5-5.1); Alkaline Phosphatase 92 U/L (38-126); Anion Gap 8 mmol/L (4-12); Aspartate Amino Transferase 24 U/L (14-36); Bilirubin,Total 0.5 mg/dL (0.2-1.3); Blood Urea Nitrogen 18 mg/dL (7-17); Calcium 9.5 mg/dL (8.4-10.2); Carbon Dioxide 26 mmol/L (22-30); Chloride 105 mmol/L (98-107); Cholesterol 135 mg/dL (0-200); Estimated Glomerular Filt Rate 49; Glucose 98 mg/dL (65-110); HDL Direct 64 mg/dL; Potassium 4.0 mmol/L (3.4-5.0); Sodium 139 mmol/L (137-145); Total Protein 7.2 g/dL (6.3-8.2); Triglycerides 135 mg/dL (<150)
[2025-02-12 08:52] LABS: Free T4 Free Thyroxine 1.03 ng/dL (0.78-2.19)
[2025-02-12 09:13] LABS: Thyroid Stimulating Hormone 0.098 uIU/mL (0.465-4.680)
[2025-02-12 10:52] LABS: MALB Creatinine Ratio 5.8 mg/g (0-30)
[2025-02-12 10:54] LABS: Total Protein Urine Random < 5 mg/dL; Ur Ttl Prot Creatinine Ratio < 0.03 mg/mg (0-0.20)
[2025-02-12 11:29] LABS: Parathyroid Intact 49.1 pg/mL (14.5-75.2)
== END 2025-02-12 07:37 | disposition home or self-care (01) ==
LOC: ANHLAB 07:38
PROVIDERS: PCP Internal Medicine; Visit Provider Internal Medicine Nephrology
DX: I12.9 Hypertensive chronic kidney disease with stage 1 through stage 4 chronic kidney disease, or unspecified chronic kidney disease (principal); N18.32 Chronic kidney disease, stage 3b; N25.81 Secondary hyperparathyroidism of renal origin; E55.9 Vitamin D deficiency, unspecified; E11.9 Type 2 diabetes mellitus without complications; E78.5 Hyperlipidemia, unspecified
CPT/HCPCS: 36415; 80053; 80061; 82043; 82306; 82570; 83036; 83970; 84100; 84156; 84439; 84443; 85025; 85055